=== PATIENT | female | born 1970 | race Caucasian/White ===

== ENCOUNTER 2024-07-11 18:04 | Emergency (ER) | payer OTHER, SELFPAY ==
--- NOTE | ~2024-07-11 | XR_ITS ---
EXAMINATION: XR chest 2V Exam Date/Time: 07/11/2024 18:50 CHEMISTRY INTERN HISTORY: sob Comparison: None. RESULT: Lines, tubes, and devices: None. Lungs and pleura: 11 mm and 5 mm nodules in the right upper lobe, otherwise clear. Cardiomediastinal silhouette: Stable. Other: No acute osseous or upper abdominal finding. IMPRESSION: No acute cardiopulmonary process. Right upper lobe pulmonary nodules, recommend comparison to outside studies if available, otherwise r ecommend nonemergent but timely low-dose noncontrast CT of the chest for further characterization. Reviewed, dictated and finalized at location K. ISTRY INTERN IMPRESSION: No acute cardiopulmonary process. Right upper lobe pulmonary nodules, recommend comparison to outside studies if available, otherwise recommend nonemergent but timely low-dose noncontrast CT o f the chest for further characterization.
--- NOTE | 2024-07-11 18:39 | ED_ITS ---
HPI - Recheck/Abnormal Lab/Rx General Chief Complaint: Recheck/Abnormal Lab/Rx <Mariana Blackman PA-C - Last Filed: 07/12/24 14:42> Stated Complaint: low hemoglobin <Mariana Blackman PA-C - Last Filed: 07/12/24 14:42> Time Seen by Provider: 07/11/24 18:39 <Mariana Blackman PA-C - Last Filed: 07/12/24 14:42> Focused HPI: This is a 53 year old female that presents to the ER for abnormal outpatient blood work. She is supposed to have surgery to remove fibroids on Wednesday. Reports she had some outpatient blood work on Wednesday that showed a low hemoglobin (7.4). She has been short of breath. She was prompted to be seen in the ER by her grounds restoration specialist. Dr. Newton. No current bleeding. GENERAL: Well-appearing, well-nourished, and in no acute distress. HEAD: Normocephalic, atraumatic. CHEST: Clear to auscultation. ?No respiratory distress. HEART: Regular rate and rhythm.? NEURO: ?Alert and oriented x3. Patient screened in triage and initial orders placed.? ?Additional care and disposition to be based upon?diagnostic testing and treatment. <Mariana Blackman PA-C - Last Filed: 07/12/24 14:42> Focused HPI: This is a 53 year old female that presents to the ER for abnormal outpatient blood work. She is supposed to have surgery to remove fibroids on Wednesday. Reports she had some outpatient blood work on Wednesday that showed a low hemoglobin (7.4). She has been short of breath. She was prompted to be seen in the ER by her grounds restoration specialist. Dr. Newton. No current bleeding. GENERAL: Well-appearing, well-nourished, and in no acute distress. HEAD: Normocephalic, atraumatic. CHEST: Clear to auscultation. ?No respiratory distress. HEART: Regular rate and rhythm.? NEURO: ?Alert and oriented x3. Patient screened in triage and initial orders placed.? ?Additional care and disposition to be based upon?diagnostic testing and treatment. <Neva Collins PA-C - Last Filed: 07/12/24 03:32> Source: patient <Neva Collins PA-C - Last Filed: 07/12/24 03:32> Mode of arrival: ambulatory <Neva Collins PA-C - Last Filed: 07/12/24 03:32> Limitations: no limitations <Neva Collins PA-C - Last Filed: 07/12/24 03:32> History of Present Illness HPI narrative: Agree with above HPI. Denies rectal bleeding, melena, hematuria, epistaxis. Denies CP, palpitations. Denies pain. Last normal menstrual cycle was a few weeks ago. Patient has never had a blood transfusion before. Is not currently on any iron supplementation. <Neva Collins PA-C - Last Filed: 07/12/24 03:32> Related Data Home Medications: Home Medications ?Medication ?Instructions ?Recorded ?Confirmed ?Last Taken ?Type omeprazole 20 mg capsule,delayed 20 mg PO DAILY 07/10/24 07/10/24 Unknown History release tirzepatide (weight loss) 12.5 12.5 mg subcut WEEKLY 07/10/24 07/10/24 Unknown History mg/0.5 mL subcutaneous pen injector (Zepbound) <Mariana Blackman PA-C - Last Filed: 07/12/24 14:42> Allergies/Adverse Reactions: Allergies Allergy/AdvReac Type Severity Reaction Status Date / Time No Known Allergies Allergy Verified 07/11/24 18:48 <Mariana Blackman PA-C - Last Filed: 07/12/24 14:42> Review of Systems 2 Review of Systems: All systems reviewed & are unremarkable except as noted in HPI. <Neva Collins PA-C - Last Filed: 07/12/24 03:32> All systems reviewed & are unremarkable except as noted in HPI and below < Neva Collins PA-C - Last Filed: 07/12/24 03:32> PMFSH Past Medical History Medical History: Medical History (Updated 07/12/24 @ 14:41 by Mariana Blackman PA-C) History of uterine fibroid <Mariana Blackman PA-C - Last Filed: 07/12/24 14:42> Social History Social History: Social History Smoking packs per day: 0.5 Smoking cigarettes per day: 10.0 Years smoked: 15 Smoking pack-years: 7.50 Tobacco type: e-cigarettes/vaping Smoking end date: 08/02/18 Substance use: never Substance use type: does not use Living arrangements: with family Spiritual care concerns: No <Mariana Blackman PA-C - Last Filed: 07/12/24 14:42> Exam 2 Narrative: GENERAL: Well appearing, well-nourished, non-toxic, in no acute distress. HEAD: Normocephalic, atraumatic. RESPIRATORY: Airway patent, respirations nonlabored. Clear to auscultation bilaterally, no rales, rhonchi, wheezing. No focal lung sounds. CARDIOVASCULAR: Regular rate and rhythm without murmurs, rubs, or gallops. RECTAL: Normal rectal tone. Small amount of brown stool obtained with JUANCHO. Guaiac negative. no hemorrhoids noted on exam. MUSCULOSKELETAL: Moves all extremities. No gross deformities. SKIN: Warm, dry, normal color. NEURO: A&O X3. Speech clear. Cranial nerves II-XII grossly intact. Steady gait. No ataxic movements. No focal deficits. PSYCHIATRIC: Appropriate mood and affect. Normal interaction. <Neva Collins PA-C - Last Filed: 07/12/24 03:32> Course Vital Signs Vital signs: Vital Signs Temperature 97.4 F L 07/11/24 18:44 Pulse Rate 80 07/11/24 18:44 Respiratory Rate 16 07/11/24 18:44 Blood Pressure 140/69 07/11/24 18:44 Pulse Oximetry 100 07/11/24 18:44 Oxygen Delivery Room Air 07/11/24 18:44 Temperature 97.9 F 07/12/24 02:44 Pulse Rate 82 07/12/24 02:44 Respiratory Rate 16 07/12/24 02:44 Blood Pressure 122/74 07/12/24 02:44 Pulse Oximetry 98 07/12/24 02:44 Oxygen Delivery Room Air 07/11/24 21:06 <MATT Coffman Last Filed: 07/12/24 14:42> Vital Signs Temperature 97.4 F L 07/11/24 18:44 Pulse Rate 80 07/11/24 18:44 Respiratory Rate 16 07/11/24 18:44 Blood Pressure 140/69 07/11/24 18:44 Pulse Oximetry 100 07/11/24 18:44 Oxygen Delivery Room Air 07/11/24 18:44 Temperature 97.9 F 07/12/24 02:44 Pulse Rate 82 07/12/24 02:44 Respiratory Rate 16 07/12/24 02:44 Blood Pressure 122/74 07/12/24 02:44 Pulse Oximetry 98 07/12/24 02:44 Oxygen Delivery Room Air 07/11/24 21:06 <Neva Collins PA-C - Last Filed: 07/12/24 03:32> MDM - Recheck/Abnormal Lab/Rx MDM Narrative Medical decision making narrative: Patient presented to ED with abnormal lab results, showing low hemoglobin. Scheduled to undergo fibroid removal with Dr. Newton on Wednesday. Patient reports she has been feeling increasingly short of breath with exertion over the last few days and was prompted here by her OBGYN. Patient is denying any current pain or bleeding. She denies any other forms of bleeding. Rectal exam was performed in the ED and guaiac negative. Vital signs are stable. No evidence of hemodynamic instability. CBC is with hemoglobin of 7.3. Microcytic. Appears to have component of iron deficiency. Ferritin 3. Normal white blood cell count. Normal platelets. EKG is with normal sinus rhythm, no ischemic changes. Troponin is undetectable. D-dimer is within normal range. Chest x-ray is clear from acute process. Did show incidental pulmonary nodules which I made patient aware of will need further outpatient imaging. Given that patient is acutely symptomatic, in preparation for upcoming surgery, will transfuse 1 unit. Otherwise feel she is stable for D/C home afterwards. Discussed case with Dr. Power, OBGYN prison librarian for Dr. Newton, agrees with plan. Patient tolerated blood transfusion well. She states she is ready to go home. Feel this is appropriate. Discussed iron deficiency component of anemia. Will start patient on iron supplementation. Advised patient to contact OBGYN office in the morning, given strict return precautions. She agrees with plan. Discharged in stable condition. VSS at time of d/c. <Neva Collins PA-C - Last Filed: 07/12/24 03:32> Medical Records Attestation: I reviewed the patient's medical records. <Neva Collins PA-C - Last Filed: 07/12/24 03:32> Lab Data Attestation: I reviewed the patient's lab results. <Neva Collins PA-C - Last Filed: 07/12/24 03:32> Result diagrams: 07/11/24 21:20 07/11/24 21:20 <Mariana Blackman PA-C - Last Filed: 07/12/24 14:42> Labs: Lab Results 07/11/24 Range/Units 21:20 WBC 5.6 (4.5-10.0) K/mm3 RBC 3.91 L (4.2-5.4) M/mm3 Hgb 7.3 L (12.0-15.0) g/dL Hct 26.2 L (37.0-47.0) % MCV 67.0 L (80-100) fl MCH 18.7 L (26-34) pg MCHC 27.9 L (32-36) g/dl RDW 20.1 H (11.5-14.5) % Plt Count 360 (150-375) k/mm3 MPV 8.9 (7.4-10.4) fl Immature Gran % (Auto) 0.2 (0-0.5) % Neut % (Auto) 46.3 (45.5-73.1) % Lymph % (Auto) 41.0 (18.3-44.2) % [place] % (Auto) 8.2 (2.6-8.5) % Eos % (Auto) 3.6 (0-4.4) % Baso % (Auto) 0.7 (0.2-1.2) % Lymph # (Auto) 2.30 (0.9-3.2) K/mm3 [place] # (Auto) 0.5 (0.1-0.6) K/mm3 Eos # (Auto) 0.2 (0-0.3) K/mm3 Baso # (Auto) 0.0 (0.0-0.1) K/mm3 Abs Immat Gran (auto) 0.01 (0.00-0.031) K/mm3 Absolute Neuts (auto) 2.6 (1.3-6.7) K/mm3 Absolute Nucleated RBC 0.000 (0.0-0.012) K/mm3 Nucleated RBC % 0.0 (0.0-0.2) % Platelet Estimate Adequate (Adequate) Hypochromasia 1+ Anisocytosis 1+ Microcytosis 1+ (NORMAL) Ovalocytes 1+ Schistocytes None seen Absolute Retic 0.08 (0.02-0.10) 10^6/uL Percent Retic 1.94 (0.7-4.3) % Immature Retic Fraction 20.0 H (3.0-15.9) % Retic Hgb Content 16.9 L (28.2-36.6) pg PT 13.5 (11.1-14.7) Seconds INR 1.0 APTT 26.7 (22.3-36.8) Seconds D-Dimer < 0.27 (<0.48) ug/mL Sodium 137 (137-145) mmol/L Potassium 3.5 (3.4-5.0) mmol/L Chloride 109 H (98-107) mmol/L Carbon Dioxide 23 (22-30) mmol/L Anion Gap 5 (4-12) mmol/L BUN 11 (7-17) mg/dL Creatinine 0.60 L (0.7-1.0) mg/dL Estim Creat Clear Calc 78 ml/min Estimated GFR > 60 (59 - ) Glucose 95 (65-110) mg/dL Calcium 8.7 (8.4-10.2) mg/dL Iron 21 L (37-170) ug/dL TIBC 499 H (261-462) ug/dL % Saturation 4 L (20-50) % Transferrin 344 (206-381) mg/dL Ferritin 3.65 L (11.1-264) ng/mL Total Bilirubin 0.5 (0.2-1.3) mg/dL AST 22 (14-36) U/L ALT 19 (6-35) U/L Alkaline Phosphatase 49 (38-126) U/L Troponin I < 0.012 (0.000-0.034) ng/mL Total Protein 7.0 (6.3-8.2) g/dL Albumin 3.9 (3.5-5.1) g/dL Vitamin B12 276.0 (239-931) pg/mL Folate 11.7 (2.76->20) ng/mL Blood Type O Positive Antibody Screen Negative Crossmatch See Detail <Mariana Blackman PA-C - Last Filed: 07/12/24 14:42> Lab Results 07/11/24 Range/Units 21:20 WBC 5.6 (4.5-10.0) K/mm3 RBC 3.91 L (4.2-5.4) M/mm3 Hgb 7.3 L (12.0-15.0) g/dL Hct 26.2 L (37.0-47.0) % MCV 67.0 L (80-100) fl MCH 18.7 L (26-34) pg MCHC 27.9 L (32-36) g/dl RDW 20.1 H (11.5-14.5) % Plt Count 360 (150-375) k/mm3 MPV 8.9 (7.4-10.4) fl Immature Gran % (Auto) 0.2 (0-0.5) % Neut % (Auto) 46.3 (45.5-73.1) % Lymph % (Auto) 41.0 (18.3-44.2) % [place] % (Auto) 8.2 (2.6-8.5) % Eos % (Auto) 3.6 (0-4.4) % Baso % (Auto) 0.7 (0.2-1.2) % Lymph # (Auto) 2.30 (0.9-3.2) K/mm3 [place] # (Auto) 0.5 (0.1-0.6) K/mm3 Eos # (Auto) 0.2 (0-0.3) K/mm3 Baso # (Auto) 0.0 (0.0-0.1) K/mm3 Abs Immat Gran (auto) 0.01 (0.00-0.031) K/mm3 Absolute Neuts (auto) 2.6 (1.3-6.7) K/mm3 Absolute Nucleated RBC 0.000 (0.0-0.012) K/mm3 Nucleated RBC % 0.0 (0.0-0.2) % Platelet Estimate Adequate (Adequate) Hypochromasia 1+ Anisocytosis 1+ Microcytosis 1+ (NORMAL) Ovalocytes 1+ Schistocytes None seen Absolute Retic 0.08 (0.02-0.10) 10^6/uL Percent Retic 1.94 (0.7-4.3) % Immature Retic Fraction 20.0 H (3.0-15.9) % Retic Hgb Content 16.9 L (28.2-36.6) pg PT 13.5 (11.1-14.7) Seconds INR 1.0 APTT 26.7 (22.3-36.8) Seconds D-Dimer < 0.27 (<0.48) ug/mL Sodium 137 (137-145) mmol/L Potassium 3.5 (3.4-5.0) mmol/L Chloride 109 H (98-107) mmol/L Carbon Dioxide 23 (22-30) mmol/L Anion Gap 5 (4-12) mmol/L BUN 11 (7-17) mg/dL Creatinine 0.60 L (0.7-1.0) mg/dL Estim Creat Clear Calc 78 ml/min Estimated GFR > 60 (59 - ) Glucose 95 (65-110) mg/dL Calcium 8.7 (8.4-10.2) mg/dL Iron 21 L (37-170) ug/dL TIBC 499 H (261-462) ug/dL % Saturation 4 L (20-50) % Transferrin 344 (206-381) mg/dL Ferritin 3.65 L (11.1-264) ng/mL Total Bilirubin 0.5 (0.2-1.3) mg/dL AST 22 (14-36) U/L ALT 19 (6-35) U/L Alkaline Phosphatase 49 (38-126) U/L Troponin I < 0.012 (0.000-0.034) ng/mL Total Protein 7.0 (6.3-8.2) g/dL Albumin 3.9 (3.5-5.1) g/dL Vitamin B12 276.0 (239-931) pg/mL Folate 11.7 (2.76->20) ng/mL Blood Type O Positive Antibody Screen Negative Crossmatch See Detail <RADHA Gallardo-C - Last Filed: 07/12/24 03:32> Imaging Data Attestation: I personally reviewed and interpreted this imaging study as follows: < Neva Collins PA-C - Last Filed: 07/12/24 03:32> Radiologist's impression: ITS Impressions Chest X-Ray 07/11/24 19:22 IMPRESSION: No acute cardiopulmonary process. Right upper lobe pulmonary nodules, recommend comparison to outside studies if available, otherwise recommend nonemergent but timely low-dose noncontrast CT of the chest for further characterization. <Neva Collins PA-C - Last Filed: 07/12/24 03:32> ECG Data EKG #1: Attestation: I personally reviewed and interpreted this ECG as follows: <Neva Collins PA-C - Last Filed: 07/12/24 03:32> ECG completion date: 07/11/24 <Neva Collins PA-C - Last Filed: 07/12/24 03:32> ECG completion time: 21:26 <Neva Collins PA-C - Last Filed: 07/12/24 03:32> EKG Interpretation: normal rate (72), sinus rhythm and no ST changes <Neva Collins PA-C - Last Filed: 07/12/24 03:32> Critical Care Time Critical Care Time Critical Care Time: No <Mariana Blackman PA-C - Last Filed: 07/12/24 14:42> Discharge Plan Discharge Clinical Impression: Symptomatic anemia, Incidental pulmonary nodule, Shortness of breath Uterine fibroid Qualifiers: Uterine leiomyoma location: unspecified location Qualified Code(s): D25.9 - Leiomyoma of uterus, unspecified <MATT Coffman Last Filed: 07/12/24 14:42> Patient Disposition: Home, Self-Care <MATT Coffman Last Filed: 07/12/24 14:42> Condition: Stable <Mariana Blackman PA-C - Last Filed: 07/12/24 14:42> Instructions: Antibiotic Form, Iron Rich Diet (ED), Anemia (ED), Blood Transfusion (DC) <Mariana Blackman PA-C - Last Filed: 07/12/24 14:42> Additional Instructions: Take iron supplement as prescribed. Stay well hydrated. Contact Dr. Newton's office today to inform of ED visit and blood transfusion. Return to the ED if you experience worsening or severe symptoms, severe shortness breath or chest pain, pain or swelling in legs, coughing blood, unable to keep down food or drink, severe bleeding, dizziness/lightheadedness, passing out, or any other symptoms of concern. Your chest x-ray here showed an incidental pulmonary nodule in your right upper lung. Follow-up with your primary care doctor for further evaluation and imaging of this. <Mariana Blackman PA-C - Last Filed: 07/12/24 14:42> Patient Language: Martiniquais <Mariana Blackman PA-C - Last Filed: 07/12/24 14:42> Prescriptions: New ferrous sulfate [Iron (ferrous sulfate)] 325 mg (65 mg iron) tablet 325 mg PO DAILY Qty: 30 0RF No Action omeprazole 20 mg capsule,delayed release(DR/EC) 20 mg PO DAILY Zepbound 12.5 mg/0.5 mL pen injector 12.5 mg SUBCUT WEEKLY <Mariana Blackman PA-C - Last Filed: 07/12/24 14:42> Follow-up/Referrals: Imani Newton MD [Physician] - <Mariana Blackman PA-C - Last Filed: 07/12/24 14:42> Stand Alone Forms: Work/School Release IP <Mariana Blackman PA-C - Last Filed: 07/12/24 14:42> Time of Disposition: 02:31 <MATT Coffman Last Filed: 07/12/24 14:42> 02:31 <Neva Collins PA-C - Last Filed: 07/12/24 03:32>
[2024-07-11 18:44] VITALS: BP 140/69; PULSE 80; RESP 16; TEMP 36.3; O2SAT 100
--- NOTE | 2024-07-11 21:05 | ECG_ITS ---
Test Date: 2024-07-11 21:26:57 Measurements Intervals [place] Rate: 72 P: 43 FL: 184 QRS: 42 QRSD: 86 T: 37 QT: 376 QTc: 413 Interpretive Statements SINUS RHYTHM No previous ECG available for comparison Electronically Signed On 07-12-2024 11:50:27 OPTICAL ENGINEER by Elver Reina
[2024-07-11 21:06] VITALS: BP 130/72; PULSE 75; RESP 15; TEMP 36.4; O2SAT 100
[2024-07-11 21:26] LABS: Basophils Percent Auto 0.7 % (0.2-1.2); Eosinophils Absolute Auto 0.2 K/mm3 (0-0.3); Eosinophils Percent Auto 3.6 % (0-4.4); Hematocrit 26.2 % (37.0-47.0); Hemoglobin 7.3 g/dL (12.0-15.0); Immature Granulocyte Absolute 0.01 K/mm3 (0.00-0.031); Immature Granulocyte Percent A 0.2 % (0-0.5); Mean Corpuscular HGB Conc 27.9 g/dl (32-36); Mean Corpuscular Hemoglobin 18.7 pg (26-34); Mean Platelet Volume 8.9 fl (7.4-10.4); Monocytes Absolute Auto 0.5 K/mm3 (0.1-0.6); Monocytes Percent Auto 8.2 % (2.6-8.5); Neutrophils Absolute Auto 2.6 K/mm3 (1.3-6.7); Neutrophils Percent Auto 46.3 % (45.5-73.1); Platelet Count Result 360 k/mm3 (150-375); Red Blood Count 3.91 M/mm3 (4.2-5.4); Red Cell Distribution Width 20.1 % (11.5-14.5); White Blood Count 5.6 K/mm3 (4.5-10.0)
[2024-07-11 21:29] VITALS: RESP 16; O2SAT 100
[2024-07-11 21:37] LABS: Partial Thromboplastin Time 26.7 Seconds (22.3-36.8); Prothrombin Time 13.5 Seconds (11.1-14.7)
[2024-07-11 21:42] LABS: Platelet Estimate Adequate (Adequate)
[2024-07-11 21:43] LABS: Anisocytosis 1+; Hypochromasia 1+; Microcytosis 1+ (NORMAL); Ovalocytes 1+; Schistocytes None Seen
[2024-07-11 21:52] LABS: Alanine Aminotransferase 19 U/L (6-35); Albumin Level 3.9 g/dL (3.5-5.1); Alkaline Phosphatase 49 U/L (38-126); Anion Gap 5 mmol/L (4-12); Aspartate Amino Transferase 22 U/L (14-36); Bilirubin,Total 0.5 mg/dL (0.2-1.3); Blood Urea Nitrogen 11 mg/dL (7-17); Calcium 8.7 mg/dL (8.4-10.2); Carbon Dioxide 23 mmol/L (22-30); Chloride 109 mmol/L (98-107); Estimated CRCL calculation 78 ml/min; Estimated Glomerular Filt Rate > 60; Glucose 95 mg/dL (65-110); Potassium 3.5 mmol/L (3.4-5.0); Sodium 137 mmol/L (137-145)
[2024-07-11 21:53] LABS: D Dimer < 0.27 ug/mL (<0.48)
[2024-07-11 21:54] VITALS: BP 136/75; PULSE 75; RESP 16; O2SAT 100
[2024-07-11 22:13] LABS: Troponin I < 0.012 ng/mL (0.000-0.034)
[2024-07-11 22:20] LABS: Reticulocyte Hemoglobin Conten 16.9 pg (28.2-36.6); Reticulocyte Percent 1.94 % (0.7-4.3); Reticulocytes Absolute 0.08 10^6/uL (0.02-0.10)
[2024-07-11 22:27] LABS: Iron 21 ug/dL (37-170)
[2024-07-11 22:36] LABS: Percent Iron Saturation 4 % (20-50)
[2024-07-11 23:03] LABS: Ferritin 3.65 ng/mL (11.1-264)
[2024-07-11 23:39] LABS: Transferrin 344 mg/dL (206-381)
[2024-07-11 23:45] VITALS: BP 106/74; PULSE 79; RESP 16; O2SAT 98
[2024-07-12] VITALS (15 sets, daily range): BP systolic 114–130; BP diastolic 61–76; PULSE 67–84; RESP 12–19; TEMP 36.4–36.6; O2SAT 98–100
[2024-07-12 00:37] LABS: Folic Acid 11.7 ng/mL (2.76->20)
[2024-07-12] MEDS: SODIUM CHLORIDE 0.9% IV 250 ML 30 ML IV CONT (00:45)
[2024-07-12] MEDS: TUBING, BLOOD PLUM PUMP TUBING 1 EACH XX (00:45)
== END 2024-07-12 02:45 | disposition home or self-care (01) ==
PROVIDERS: Physician Assistant; Emergency Provider Physician Assistant
DX: D25.9 Leiomyoma of uterus, unspecified (principal); D64.9 Anemia, unspecified; R91.1 Solitary pulmonary nodule; R06.02 Shortness of breath
CPT/HCPCS: 36415; 36430; 71046; 80053; 82607; 82728; 82746; 83540; 83550; 84466; 84484; 85025; 85046; 85380; 85610; 85730; 86850; 86900; 86901; 86923; 93005; 96360; 96361; 99284; J7050; P9016

== ENCOUNTER 2024-07-13 17:20 | Outpatient (CLI) | payer OTHER, SELFPAY ==
[2024-07-13 17:39] LABS: Basophils Absolute Auto 0.1 K/mm3 (0.0-0.1); Basophils Percent Auto 0.8 % (0.2-1.2); Eosinophils Absolute Auto 0.2 K/mm3 (0-0.3); Hematocrit 29.7 % (37.0-47.0); Hemoglobin 8.5 g/dL (12.0-15.0); Immature Granulocyte Absolute 0.01 K/mm3 (0.00-0.031); Immature Granulocyte Percent A 0.2 % (0-0.5); Lymphocytes Absolute Auto 2.46 K/mm3 (0.9-3.2); Lymphocytes Percent Auto 40.7 % (18.3-44.2); Mean Corpuscular HGB Conc 28.6 g/dl (32-36); Mean Corpuscular Hemoglobin 20.1 pg (26-34); Mean Corpuscular Volume 70.2 fl (80-100); Mean Platelet Volume 8.3 fl (7.4-10.4); Monocytes Absolute Auto 0.6 K/mm3 (0.1-0.6); Monocytes Percent Auto 9.1 % (2.6-8.5); Neutrophils Absolute Auto 2.8 K/mm3 (1.3-6.7); Neutrophils Percent Auto 46.2 % (45.5-73.1); Platelet Count Result 330 k/mm3 (150-375); Red Blood Count 4.23 M/mm3 (4.2-5.4); Red Cell Distribution Width 21.2 % (11.5-14.5)
[2024-07-13 17:59] LABS: Anisocytosis 1+; Hypochromasia 1+; Ovalocytes 1+; Platelet Estimate Adequate (Adequate); Poikilocytosis 1+; Schistocytes None Seen
[2024-07-13 18:28] LABS: Ferritin 6.31 ng/mL (11.1-264)
== END 2024-07-13 17:21 | disposition home or self-care (01) ==
LOC: ANHLAB 17:23
PROVIDERS: Visit Provider Obstetrics & Gynecology Gynecology
DX: D50.9 Iron deficiency anemia, unspecified (principal)
CPT/HCPCS: 36415; 82728; 85025

== ENCOUNTER 2024-07-17 00:37 | Day surgery (SDC) | payer OTHER, SELFPAY ==
[2024-07-10 08:48] VITALS: BMI 22.6
--- NOTE | 2024-07-10 09:01 | PC.NURSE ---
Report to the Outpatient Waiting Room, entrance under the green pavilion located off [facility], at time _0630 on date _07/17/24 . Planned Procedure Time: _0830AM .? Time changes happen often and if your time is changed the preop area will call you the afternoon before. - You and your visitor will be asked to self-screen and do not enter if you have any COVID symptoms. Please call surgeon if you need to reschedule. - A mask is optional within the hospital at this time. Patients may have clear liquids (water, carbonated beverages, clear teas, apple juice) until 3 hours prior to surgery with a maximum of 20 ounces. - No food from midnight until time of surgery and no smoking. This includes no chewing gum, candy or mints. Take only the following medications with a SIP of water on the morning of surgery: __NONE DO NOT STOP ANY OF YOUR OTHER PRESCRIPTION MEDICATIONS PRIOR TO SURGERY EXCEPT THE FOLLOWING Medications to discontinue per physician ZEPBOUND Date to take last dose___ HOLD YOUR WED 07/12/24__DOSE Please no make-up, nail mosotho, hairspray, perfume, deodorant, or body powder the day of surgery.? No jewelry (including any body piercings) or valuables the day of surgery, leave them at home.? Please take a shower or bath the night before, or the morning of, surgery with an antibacterial soap.? Wear comfortable, loose fitting clothing.? - Jewelry must be removed prior to entering the operating room.? Rings and piercings that are not removed may be cut off. - The hospital will not accept responsibility for valuables.? - Please leave all valuables, including medications, at home the day of surgery. If you are going home after surgery, a licensed septic pump truck driver must drive you home.? - NO public transportation without another adult if you receive anesthesia. - We recommend that an adult stay with you for 24 hours following discharge. - We also recommend that you do not drive, make important decision, drink alcoholic beverages, or take any drugs that were not prescribed by your health care provider for at least 24 hours after your discharge time. Follow any additional instructions given to you from your surgeon. Telephone instructions given to __JO ___and asked if any additional questions and then verbalized understanding. Patient advised to call surgeon office or pre surgery nurse liaison [phone] if any additional questions.
[2024-07-17 06:00] VITALS: BP 109/56; PULSE 73; RESP 14; TEMP 36.6; O2SAT 100
[2024-07-17] MEDS: LACTATED RINGERS 1,000 ML 30 ML IV CONT (06:30)
[2024-07-17] MEDS: ACETAMINOPHEN 500 MG TABLET 1000 MG PO (07:21)
--- NOTE | 2024-07-17 07:23 | WPDHPUPDATE1 ---
History and Physical Update Update Date/Time: 07/17/24 07:23 History and Physical has been reviewed, including an updated exam of the patient. There are NO changes in the patient's condition. Risks, benefits, and alternatives have been discussed and questions answered. Patient agrees to proceed with procedure.
--- NOTE | 2024-07-17 07:23 | PM.HPGS ---
History of Present Illness History of Present Illness Consent: Risks, benefits, and alternatives have been discussed and questions answered. Patient agrees to proceed with procedure. Chief complaint: menorrhagia, fibroids Narrative: Khalif Stacy is a 53 year old female with menorrhagia. Patient had a hemoglobin of 7.3 and was transfused at the emergency room on 07/11. Patient had 18 months of changing cycles and is now changing a tampon and a pad every 1 to 2 hours during her cycle. In addition she states she was having extreme abdominal pain, nausea, lightheaded. Patient with episodes of passing out. She did have a pelvic CT which revealed fibroids. It was recommended to undergo D&C hysteroscopy possible myomectomy further evaluation. Risks of infection, bleeding, perforation, and fluid imbalance are reviewed. Patient voices understanding and agrees to proceed. The other significant history is the patient has been on zepbound and has lost 100lb over the prior 3 years. Review of Systems Review of Systems: not repeated day of surgery; patient states no changes in status PMFSH Past Medical History Medical History (Updated 07/17/24 @ 07:28 by Imani Newton MD) PCOS (polycystic ovarian syndrome) (normal spontaneous vaginal delivery) x2 History of uterine fibroid Surgical History Surgical History (Updated 07/17/24 @ 07:27 by Imani Newton MD) Status post tubal ligation Social History Social History Smoking packs per day: 0.5 Smoking cigarettes per day: 10.0 Years smoked: 15 Smoking pack-years: 7.50 Tobacco type: e-cigarettes/vaping Smoking end date: 08/02/18 Substance use: never Substance use type: does not use Living arrangements: with family Spiritual care concerns: No Meds Home Medications and Allergies Home Medications ?Medication ?Instructions ?Recorded ?Confirmed ?Type omeprazole 20 mg capsule,delayed 20 mg PO DAILY 07/10/24 07/17/24 History release tirzepatide (weight loss) 12.5 12.5 mg subcut WEEKLY 07/10/24 07/17/24 History mg/0.5 mL subcutaneous pen injector (Zepbound) ferrous sulfate 325 mg (65 mg 325 mg PO DAILY #30 tabs 07/12/24 07/17/24 Rx iron) tablet (Iron (ferrous sulfate)) Allergies Allergy/AdvReac Type Severity Reaction Status Date / Time No Known Allergies Allergy Verified 07/17/24 07:22 Exam Const: General: healthy appearing and alert Orientation/consciousness: patient oriented x3 Resp: Effort & Inspection: normal respiratory effort Auscultation: clear to auscultation bilaterally Cardio: Rate: regular rate Rhythm: regular rhythm GI: GI Palp: Yes Soft to palpation, No Tenderness to palpation present (GI) and No Palpable mass present Neuro: General: patient oriented x3 Assessment and Plan Assessment and plan (1) Menorrhagia: Code(s): N92.0 - Excessive and frequent menstruation with regular cycle Status: Acute Assessment and Plan: plan to proceed with D&C hysteroscopy and possible myomectomy (2) History of uterine fibroid: Code(s): Z86.018 - Personal history of other benign neoplasm Status: Acute (3) Anemia: Code(s): D64.9 - Anemia, unspecified Status: Acute
[2024-07-17 07:28] LABS: BEDSIDEPREGUCG Negative (Negative)
--- NOTE | 2024-07-17 07:40 | P.PNAN_ITS ---
Anes - Initial Pre Proc Eval Procedure: Operation Date: 07/17/24 08:30 Proposed Procedures p Hysteroscopy Dilation and Curettage - Imani Newton MD Date/Time: 07/17/24 07:40 Surgeon: Imani Newton MD Pre Op Diagnosis: menorrhagia, fibroids Patient Data Age: 53 Gender: F Height: 1.57 m Weight: 58.3 kg Last Vital Signs Temp 36.6 C 07/17/24 06:00 Pulse 73 07/17/24 06:00 Resp 14 07/17/24 06:00 BP 109/56 L 07/17/24 06:00 Pulse Ox 100 07/17/24 06:00 O2 Del Method Room Air 07/17/24 06:00 Allergies Allergy/AdvReac Type Severity Reaction Status Date / Time No Known Allergies Allergy Verified 07/17/24 07:22 Home Medications ?Medication ?Instructions ?Recorded ?Confirmed ?Type omeprazole 20 mg capsule,delayed 20 mg PO DAILY 07/10/24 07/17/24 History release tirzepatide (weight loss) 12.5 12.5 mg subcut WEEKLY 07/10/24 07/17/24 History mg/0.5 mL subcutaneous pen injector (Zepbound) ferrous sulfate 325 mg (65 mg 325 mg PO DAILY #30 tabs 07/12/24 07/17/24 Rx iron) tablet (Iron (ferrous sulfate)) Laboratory Tests 07/17/24 06:00 POC Urine HCG, Qual Negative (Negative) Patient hx anesthesia problems: none Family hx anesthesia problems: none Results Review: All pre-operative results and documents have been reviewed as part of the pre- operative evaluation. [facility] Past Medical History Medical History (Updated 07/17/24 @ 07:28 by Imani Newton MD) PCOS (polycystic ovarian syndrome) (normal spontaneous vaginal delivery) x2 History of uterine fibroid Surgical History Surgical History (Updated 07/17/24 @ 07:27 by Imani Newton MD) Status post tubal ligation Social History Social History Smoking packs per day: 0.5 Smoking cigarettes per day: 10.0 Years smoked: 15 Smoking pack-years: 7.50 Tobacco type: e-cigarettes/vaping Smoking end date: 08/02/18 Substance use: never Substance use type: does not use Living arrangements: with family Spiritual care concerns: No Anes - Eval Final PreProcedure Day of Procedure 07/17/24 07:40 Patient weight: normal Heart: regular rate and rhythm Lungs: clear to auscultation and normal air movement Airway: Mallampati scale class II Neurological: alert and oriented Last oral intake: >/= 8 hours ASA classification: II Emergent: no Anesthetic plan: proceed Anesthesia type and monitoring: general GIVS and standard monitoring Results Review: All pre-operative results and documents have been reviewed as part of the pre- operative evaluation. Informed Consent: The patient's anesthetic plan and its attendant risks and benefits were discussed with the patient/family/POA. Questions were solicited and answers provided to the satisfaction of the patient/family/POA.
--- NOTE | 2024-07-17 09:11 | P.OP_ITS ---
Procedure Note - Detailed Date of Procedure 07/17/24 Pre-op Diagnosis menorrhagia, fibroids, anemia Post-op Diagnosis Same Procedure Performed D&C hysteroscopy Surgeon Imani Newton MD Anesthesia MAC Findings severe cervical stenosis, uterus sounds to 8cm, abnormality anterior left consistent with a possible fibroid Description of Procedure The patient was taken to the operating room and placed under anesthesia in the dorsal lithotomy position. She was prepped and draped in the usual sterile fashion. [place] speculum was placed in the vagina and the cervix grasped on the anterior lip with a tenaculum. The uterus was attempted to be sounded and at the 2cm kevin severe stenosis is encountered. The os Finders and the small dilators are used without success. The sound was again attempted without success. The os Finders and small dilators and sound are tied again without success. The 11 blade scalpel is used to lino cross the cervix with no mucus returned. The os Finders, dilators and sound are again attempted and on this attempt the sound did proceed further. With significant force the sound did sound to 8cm. The os Finder was then used and only the 1st 1 would pass. The small dilator would not pass. The small hysteroscope is placed and using hydro dissection with difficulty the cavity is entered. The majority of the cavity appears normal. There is a irregular bulging to the anterior left consistent with a possible fibroid. The flex Aveta resection device is placed and under direct visualization the abnormality is resected until visualization is poor due to bleeding. While adding additional fluid to the cavity the area appears smooth however due to bleeding a picture was not able to be taken. The resection device was also used to generally biopsy the cavity. The resection device was also used to remove scar tissue at the upper endocervix. the hysteroscope and resection device are then removed. The sharp curette is unable to enter the cavity. All instruments are removed. Sponge, needle, and instrume nt counts are correct per the OR staff. The patient was awakened from anesthesia and taken to recovery in stable condition. Of note, I would not consider this patient a candidate for an IUD or endo metrial ablation due to the severe difficulty of performing this case. Estimated Blood Loss 50 Drains No Packing No Pathology Yes ( Endometrial shavings) Complications No immediate complications Condition Stable Disposition PACU
[2024-07-17 09:13] VITALS: BP 110/64; PULSE 71; RESP 14; O2SAT 100
[2024-07-17 09:40] VITALS: BP 123/74; PULSE 62; O2SAT 100
[2024-07-17 09:58] VITALS: BP 132/78; PULSE 64; RESP 16
--- OUTSIDE RECORDS SUMMARY | 2024-07-22 09:38 | XMS_ITS | Clinical Summary ---
Author Organization [facility] Address [address] [place] [address] Phone Care Team Providers Care Telecommunications Network Engineer Name Role Phone Provider, None Primary Care Provider Unavailabl e Allergies No known active allergies Medications topiramate (TOPAMAX) 25 MG Tablet Take 2 tablets in am and 2 tablets at bedtime 120 Tab 1 8 Active Additional Information Patient not taking.Reported on 09/13/2020 Active Problems No known active problems Immunizations Immunization Administration Dates Next Due Influenza Vaccine 05/13/2018 Pneumococcal Vaccine Adult - 23 Valent 8 Family History Medical History Relation Name Comments Cancer Father Stroke Mother Relation Name Status Comments Father Maternal Grandfather Maternal Grandmother Alive Mother Paternal Grandfather Paternal Grandmother Social History Tobacco Use Types Packs/Day Years Used Date Smoking Tobacco: Every Day Cigarettes Smokeless Tobacco: Never Tobacco Cessation:Ready to Q uit: Yes; Counseling Given: Yes Alcohol Use Standard Drinks/Week Comments Yes 0 (1 standard drink = 0.6 oz pur e alcohol) PHQ-2 Answer Date Recorded PHQ-2 Score 0 04/15/2019 Sexually Active Control Partners Comments Yes Comments No Sex and Gender Information Value Date Recorded Sex Assigned at Not on file Legal Sex Female 10:28 AM CDT Gender Identity Not on file Sexual Orientation Not on file Last Filed Vital Signs Vital Sign Reading Time Taken Comments Blood Pressure 124/74 09/13/2020 5:21 PM CUSTOMER SERVICER Pulse 88 09/13/2020 5:21 PM CUSTOMER SERVICER Temperature 36.4 ??C (97.5 ??F) 09/13/2020 5:21 PM CS T Respiratory Rate 24 05/30/2018 9:37 AM CDT Oxygen Saturation 98% 09/13/2020 5:21 PM CUSTOMER SERVICER Inhaled Oxygen Concentration - - Weight 83.6 kg (184 lb 3.2 oz) 05/30/2018 9:37 A M CDT Height 160 cm (5' 3 ) 05/30/2018 9:37 AM CDT Body Mass Index 32.63 05/30/2018 9:37 AM CDT Plan of Treatment Health Maintenance Due Date Last Done Comments Hepatitis C Virus (HCV) Screening 1972 TdaP Immunization 1972 Hepatitis B Immunization (1 of 3 - 19+ 3-dose series) 1991 Pap Smear 1993 Cervical Cancer Screening (CCS) 2002 HPV/Cotest 2002 Colonoscopy 2017 Colorectal Cancer Screening 2017 Cologuard 2022 Immunochemical Fecal Occult Blood 2022 Mammogram 2022 Zoster Immunization (1 of 2) 2022 Influenza Immunization (#1) 2024 05/13/2018 SARS-COV-2 Immunization ( - season) 2024 Respiratory Syncytial Virus (RSV) Immunization (Adult) (1 - 1-dose 75+ series) 2047 Pneumococcal Immunization Combined Aged Out 2017 No longer eligible based on patient's age to complete this topic Meningococcal Immunization (ACWY) Aged Out No longer eligible based on patient's age to complete this topic Rotavirus Immunization Aged Out No lo nger eligible based on patient's age to complete this topic Insurance Care Teams Telecommunications Network Engineer Relationship Specialty Start Date End Date Provider, None MELANIE PCP - General 06/27/21
--- OUTSIDE RECORDS SUMMARY | 2024-07-22 09:38 | XMS_ITS | Encounter Summary ---
Author Organization [facility] Address [address] [place] [address]. [place] [address] [place] [address] Care Team Providers Care Officer Lieutenant Name Role Phone Michael Arias MD Primary Care Provider [phone] Reason for Referral * Imaging (Emergency) - New Request Specialty Diagnoses / Procedures Referred By Nate quiles Referred To Contact RADIOLOGY Procedures CT ABD+PEL W IV CON ONLY Rahul Lynn MD [address] [place] [address] Phone: tel: fax: Referral ID Status Reason Start Date Expiration Date V isits Requested Visits Authorized [id number] New Request 03/11/2024 03/11/2025 1 1 Reason for Visit * Reason Comments Abdominal Pain Encounter Details Date Type Department Care Team (Late st Contact Info) Description 03/11/2024 11:11 PM CDT - 03/12/2024 3:00 AM CDT Emergency [facility] Emergency Room [address] [place] [address] Rahul Lynn MD [address] [place] [address] Abdominal Pain Discharge Disposition: Home or Self Care (Routine Discharge) Social History Tobacco Use Types Packs/Day Years Used Date Smoking Tobacco: Never Passive Smoke Exposure: Never Smokeless Tobacco: Never Tobacco Cessation:Counseling Given: Not Answered Alcohol Use Standard Drinks/Week Comments Not Currently 0 (1 standard drink = 0.6 oz pur e alcohol) Comments No Sex and Gender Information Value Date Recorded Sex Assigned at Not on file Legal Sex Female 11:10 PM CDT Gender Identity Not on file Sexual Orientation Not on file documented as of this encounter Last Filed Vital Signs Vital Sign Reading Time Taken Comments Blood Pressure 145/85 03/12/2024 3:00 AM CDT Pulse 84 03/12/2024 3:00 AM CDT Temperature 36.6 ??C (97.8 ??F) 03/12/2024 3:00 AM CD T Respiratory Rate 18 03/12/2024 3:00 AM CDT Oxygen Saturation 98% 03/12/2024 3:00 AM CDT Inhaled Oxygen Concentration - - Weight 54.6 kg (120 lb 5.9 oz) 03/11/2024 11:14 PM CDT Height 157.5 cm (5' 2 ) 03/11/2024 11:14 PM CDT Body Mass Index 22.02 03/11/2024 11:14 PM CDT documented in this encounter Discharge Instructions * Discharge Instructions* Rahul Lynn MD - 03/12/2024 2:41 AM CDT Take Zofran as needed for any additional nausea. Take the Carafate as instructed until you follow-up with your primary care doctor and your primary care doctor determines additional management options which may include referral to GI for endoscopy or other testing. Contact your CREATIVE PROJECT MANAGER to discuss the severity of your menstrual bleeding which may also be related to your large fibroid. Return to theER if you have worsening symptoms including shortness of breath, dizziness upon standing, increasing pain not improved by medication, or other concerning symptoms. * Attachments The following attachments cannot be sent through Care Everywhere. * Gastritis Discharge Instructions (Kyrgyz) * Uterine Fibroids Discharge Instructions (Kyrgyz) * Gastric Ulcer Discharge Instructions (Kyrgyz) documented in this encounter Medications at Time of Discharge ondansetron (ZOFRAN-ODT) 4 MG disintegrating tablet Take 1 tablet (4 mg total) by mouth every 8 (eight) hours as needed for Nausea. 20 tablet 03/12/2024 sucralfate (CARAFATE) 1 G tablet Take 1 tablet (1 g total) by mouth 4 (four) times daily before meals and nightly. 120 tablet 03/12/2024 documented as of this encounter ED Notes * Rahul Lynn MD - 03/12/2024 1:46 AM CDT Chief Complaint Chief Complaint Patient presents with Abdominal Pain History of Present Illness 53-year-old female with a history of chronic anemia and heavy menstrual flow that is yet to be evaluated here with complaints of acute onset epigastric abdominal pain that is unchanged by anything. No previous history of similar symptoms. She does endorse some nausea. No change in bowel or bladder habits. No chest pain or shortness of breath. No known sick contacts. Medical History ALLERGIES: Review of patient's allergies indicates: No Known Allergies MEDICATIONS: Prior to Admission medications Medication Sig Start Date End Date Taking? Authorizing Provider ondansetron (ZOFRAN-ODT) 4 MG disintegrating tablet Take 1 tablet (4 mg total) by mouth every 8 (eight) hours as needed for Nausea. 03/12/24 Yes Rahul Lynn MD sucralfate (CARAFATE) 1 G tablet Take 1 tablet (1 g total) by mouth 4 (four) times daily before meals and nightly. 03/12/24 Yes Rahul Lynn MD PAST MEDICAL HISTORY: Past Medical History: Diagnosis Date Known health problems: none PAST SURGICAL HISTORY: History reviewed. No pertinent surgical history. FAMILY HISTORY: No family history on file. SOCIAL HISTORY: Social History Tobacco Use Smoking status: Never Passive exposure: Never Smokeless tobacco: Never Substance Use Topics Alcohol use: Not Currently Drug use: Never Review of Systems Review of Systems Physical Exam Filed Vitals: 03/11/24 2314 03/11/24 2315 03/12/24 0000 03/12/24 0100 BP: (!) 166/108 (!) 168/108 (!) 160/91 (!) 140/91 Pulse: 100 Resp: 20 Temp: 97.7 ??F (36.5 ??C) TempSrc: Temporal SpO2: 100% 100% 99% 96% Weight: 54.6 kg (120 lb 5.9 oz) Height: 1.575 m (5' 2 ) Physical Exam Vitals and nursing note reviewed. Constitutional: General: She is in acute distress. Appearance: She is well-developed. Comments: Obvious distress due to discomfort HENT: Head: Normocephalic and atraumatic. Right Ear: External ear normal. Left Ear: External ear normal. Nose: Nose normal. Eyes: General: No scleral icterus. Pupils: Pupils are equal, round, and reactive to light. Cardiovascular: Rate and Rhythm: Normal rate and regular rhythm. Pulses: Normal pulses. Heart sounds: Normal heart sounds. Pulmonary: Effort: Pulmonary effort is normal. No respiratory distress. Breath sounds: Normal breath sounds. No stridor. No wheezing. Abdominal: General: Bowel sounds are normal. There is no distension. Palpations: Abdomen is soft. Tenderness: There is abdominal tenderness. Comments: There is tenderness to palpation in the epigastrium. It is worst just to the left of midline however some tenderness exists in the bilateral upper quadrants. No Mcgraw sign. Positive bowel sounds. Musculoskeletal: General: No deformity. Normal range of motion. Cervical back: Normal range of motion and neck supple. Skin: General: Skin is warm and dry. Capillary Refill: Capillary refill takes less than 2 seconds. Findings: No rash. Neurological: Mental Status: She is alert and oriented to person, place, and time. Cranial Nerves: No cranial nerve deficit. Psychiatric: Mood and Affect: Mood normal. Behavior: Behavior normal. Diagnostic Studies / Procedures ELECTROCARDIOGRAMS: No results found for this visit on 03/11/24. LABORATORY STUDIES: Results for orders placed or performed during the hospital encounter of 03/11/24 CBC W/DIFF AUTOMATED Result Value Ref Range WBC 7.75 4.4 - 11.0 x10'3/uL RBC 3.85 (L) 4.50 - 5.10 x10'6/uL HGB 7.3 (L) 12.3 - 15.3 G/DL HCT 26.0 (L) 35.9 - 44.6 % MCV 67.5 (L) 80.0 - 96.0 FL MCH 19.0 (L) 25.3 - 30.9 PG MCHC 28.1 (L) 31.0 - 34.1 G/DL RDW 18.2 (H) 12.4 - 15.1 % PLT 316 151 - 353 x10'3/uL MPV 9.1 (L) 9.6 - 12.0 FL RBC MORPHOLOGY NORMAL PLT MORPH. NORMAL WBC MORPHOLOGY NORMAL LYMPHOCYTES % 34.3 15.8 - 45.0 % NEUTROPHILS % 54.5 42.1 - 71.9 % MONOCYTES % 8.6 5.7 - 12.5 % EOSINOPHILS 1.9 0.0 - 5.6 % BASOPHILS 0.4 0.0 - 1.3 % ABS. NEUTROPHILS 4.22 1.40 - 6.00 x10'3/uL IMMATURE GRANS % 0.3 0.0 - 0.5 % ABS. LYMPHOCYTES 2.66 0.80 - 4.70 x10'3/uL COMPREHENSIVE METABOLIC PANEL Result Value Ref Range GLUCOSE 97 70 - 99 MG/DL BUN 18 7 - 18 MG/DL CREATININE S/P/B 0.62 0.55 - 1.02 MG/DL SODIUM S/P/B 143 136 - 145 MMOL/L POTASSIUM S/P/B 4.0 3.5 - 5.1 MMOL/L CHLORIDE S/P/B 108 100 - 108 MMOL/L CO2 22.8 21 - 32 MMOL/L CALCIUM S/P/B 8.3 (L) 8.5 - 10.1 MG/DL BILIRUBIN TOTAL S/P/B 0.2 0.2 - 1.2 MG/DL TOTAL PROTEIN S/P/B 5.9 (L) 6.4 - 8.2 G/DL ALBUMIN S/P/B 3.3 (L) 3.4 - 5.0 G/DL AST 12 (L) 15 - 37 U/L ALT 16 14 - 55 U/L ALKALINE PHOSPHATASE S/P/B 55 50 - 136 U/L ANION GAP 12.2 5 - 15 MMOL/L BUN CREATININE RATIO 29.0 (H) 6 - 26 A/G RATIO 1.3 1.0 - 2.0 RATIO GFR ESTIMATE >90 >90 ML/MIN/1.73 M2 TROPONIN, QUANT Result Value Ref Range TROPONIN I HIGH SENSITIVITY 4 0 - 50 ng/L LIPASE Result Value Ref Range LIPASE 72 16 - 77 UNITS/L TYPE AND SCREEN Result Value Ref Range ABO/RH O POSITIVE ANTIBODY SCREEN NEGATIVE SAMPLE EXPIRATION 03/14/2024,4262 BLOOD UNIT NUMBER [id number] PRODUCT: PC LEUKOPOOR UNIT DIVISION 00 BLOOD UNIT STATUS ALLOCATED TRANSFUSION STATUS OK TO TRANSFUSE CROSSMATCH COMPATIBLE OCCULT BLOOD, FECES Result Value Ref Range OCCULT BLOOD FECAL NEGATIVE NEGATIVE IMAGING STUDIES CT ABD+PEL W IV CON ONLY Final Result by User, [id number] (03/12 12) INDICATION: Epigastric pain and right upper quadrant abdominal pain. Vomiting. COMPARISON: None. TECHNIQUE: Axial images were obtained through the abdomen and pelvis with intravenous contrast. Additional images were reconstructed in the coronal plane. DOSE OPTIMIZATION: This facility uses dose optimization techniques as appropriate to perform exams, including at least one of the following techniques: 1. Automated exposure control. 2. Adjustment of the mA and/or kV according to patient size (this includes techniques or standardized protocols for targeted exams where dose is matched to the indication/reason for exam, i.e. extremities or head). 3. Use of iterative reconstructive technique. FINDINGS: Lung bases: Clear. Liver: Normal. Gallbladder: The gallbladder is mildly distended. However, no gallstones or pericholecystic inflammatory change are identified. Pancreas: Normal. Spleen: Normal. Adrenal glands: Normal. Kidneys: Normal. Abdominal wall: Normal. Stomach: Normal. Large and small bowel: The large and small bowel appears unremarkable given the absence of oral contrast. Appendix: Normal. Mesentery: Normal. Free fluid: There is a tiny amount of free fluid in the posterior pelvis, which is likely physiologic. Lymph nodes: No enlarged nodes. Vasculature: There are atherosclerotic calcifications of the aorta and iliac arteries. There is no aneurysm. Urinary bladder: Normal. Uterus: The uterus appears enlarged and heterogeneous. There is also what appears to be a large rounded mass lesion in the region of the endometrium or uterine cavity superiorly. This measures approximately 5.1 cm in diameter and may represent a large submucosal fibroid. Adnexa: The ovaries are not well visualized. There is suggestion of a small involuting left ovarian follicular cyst measuring 20 x 16 mm. There are bilateral pelvic clips, suggesting previous tubal ligation. Visualized osseous structures: There is no bony destructive process. IMPRESSION: 1. Heterogeneous enlargement of the uterus with what appears to be a large submucosal uterine fibroid. 2. Mild distention of the gallbladder, but no gallstones or pericholecystic inflammatory change are identified. 3. Atherosclerotic changes of the aorta and iliac arteries. 4. Probable involuting left ovarian follicular cyst. Referred By: Interpreted By: Jose Martin Youssef MD, 03/12/2024 12:02 AM ED Course / Medical Decision Making Medical Decision Making 53-year-old female with a history of chronic anemia and heavy menstrual flow that is yet to be evaluated here with complaints of acute onset epigastric abdominal pain that is unchanged by anything. No previous history of similar symptoms. She does endorse some nausea. No change in bowel or bladder habits. No chest pain or shortness of breath. No known sick contacts. Vitals are stable. Exam is notable for conjunctivae that do not appear particularly pale. Tenderness to the epigastrium and the bilateral upper quadrants left being greater than right. No Mcgraw sign. Patient provided a dose of morphine shortly after arrival and had improvement in her symptoms. Zofran resulted in significant reduction and patient nausea. Anemia was noted at 7.3. WBC and platelets are normal. The CMP was essentially unremarkable. Lipase was negative. The troponin was negative. Type and screen was ordered immediately thereafter. Additional history was obtained and it was reported that the patient has extremely heavy flow periods and often times will have syncopal episodes secondary to this level of bleeding. No evaluation has been sought for this complaint. Rectal exam demonstrated normal brown stool. Guaiac negative. CT demonstrated quite large uterine fibroid but no other findings to explain the patient's level of discomfort. A GI cocktail was provided which did briefly resulted in significant improvement in her symptoms. The discomfort did slowly return over a period of observation. Carafate wasprovided and near complete resolution of pain was achieved. Patient did receive 1 L of fluid and did eventually provide a UA specimen. The urinalysis demonstrated no evidence of UTI Patient appeared well overall. I suspect the patient's anemia comes from the continued heavy bleeding from menstrual periods. Given her report of her normal hemoglobin being at 8 this is not a dramatic decrease and as such requires no additional management in the emergency department. I suspect that the large fibroid is a likely cause of the patient's level of flow during periods. I discussed theimportance of following up with CREATIVE PROJECT MANAGER and reiterated that syncopal episodes due to vaginal bleeding during menstrual period she is not an appropriate response and requires additional management. I have instructed the patient to contact her primary care doctor first thing Wednesday morning to discuss her presentation and findings today as well as anticipate referral to GI. Prescriptions for Carafateand Zofran were sent to the pharmacy of the patient's choice. Patient was discharged to home in stable condition with instructions to follow-up as above Problems Addressed: Chronic anemia: chronic illness or injury Gastritis: acute illness or injury Uterine fibroid: acute illness or injury Amount and/or Complexity of Data Reviewed Independent Historian: spouse Details: Spouse present at bedside and provides additional historical information Labs: ordered. Decision-making details documented in ED Course. Radiology: ordered. Decision-making details documented in ED Course. ECG/medicine tests: ordered and independent interpretation performed. Decision- making details documented in ED Course. Details: Rhythm strip ordered and interpreted. Rate 100. No ectopy. Risk OTC drugs. Prescription drug management. Parenteral controlled substances. Clinical Impression Gastritis (Primary) Uterine fibroid Chronic anemia Disposition: Discharge Rahul Lynn MD 03/12/24 0300 * Neena Plummer RN - 03/11/2024 11:12 PM CDT To ED with c/o severe abdominal pain that started a couple of hours ago has gotten progressively worse. Rates pain 05/11. documented in this encounter Plan of Treatment Not on file documented as of this encounter Procedures Procedure Name Priority Date/Time Associated Diagnosis Comments URINALYSIS, AUTO, COMPLETE STAT 03/12/2024 2:35 AM CDT OCCULT BLOOD, FECES STAT 03/12/2024 1 2:47 AM CDT ECG 12-LEAD Routine 03/12/2024 12:[address] ABD+PEL W CON STAT 03/11/2024 11:5 9 PM CDT TYPE & SCREEN STAT 03/11/2024 11:32 PM CDT COMPREHENSIVE METABOLIC PANEL STAT 03/11/2024 11:19 PM CDT CBC W/DIFF AUTOMATED STAT 03/11/2024 11:19 PM CDT TROPONIN, QUANT STAT 03/11/2024 11:19 PM CDT LIPASE STAT 03/11/2024 11:19 PM CDT documented in this encounter Results * (ABNORMAL) URINALYSIS, AUTO, COMPLETE (03/12/2024 2:35 AM CDT) COLOR (U) YELLOW 03/12/2024 2:52 AM CDT [facility] TRANSPARENCY CLEAR 03/12/2024 2:52 AM CDT [facility] SPECIFIC GRAVITY (U) 1.020 1.000 - 1.030 03/12/2024 2:52 AM CDT [facility] U PH 6.0 5.0 - 9.0 03/12/2024 2:52 AM CDT [facility] LEUKOCYTES (U) NEGATIVE NEGATIVE 03/12/2024 2:52 AM CDT [facility] NITRITES NEGATIVE NEGATIVE 03/12/2024 2:52 AM CDT [facility] PROTEIN RANDOM (U) NEGATIVE NEGATIVE 03/12/2024 2:52 AM CDT [facility] GLUCOSE (U) NEGATIVE NEGATIVE 03/12/2024 2:52 AM CDT [facility] KETONES MG/DL (U) TRACE(A) NEGATIVE 03/12/2024 2:52 AM CDT [facility] BILIRUBIN (U) NEGATIVE NEGATIVE 03/12/2024 2:52 AM CDT [facility] BLOOD (U) NEGATIVE NEGATIVE 03/12/2024 2:52 AM CDT [facility] WBC/HPF NONE SEEN 0 - 5 /HPF 03/12/2024 2:52 AM CDT [facility] RBC/HPF NONE SEEN 0 - 5 /HPF 03/12/2024 2:52 AM CDT [facility] EPI/HPF MODERATE /HPF 03/12/2024 2:52 AM CDT [facility] URINE SPECIMEN OBTAINED BY CLEAN CATCH PROCEDURE / Unknown 03/12/2024 2:35 AM CDT us Rahul Lynn MD URINE ORDERABLES Final Res ult Performing Organization Address [facility]/ZIP Co de Phone Number [facility] [address] [place] [address], [place] [phone] * OCCULT BLOOD, FECES (03/12/2024 12:47 AM CDT) OCCULT BLOOD FECAL NEGATIVE NEGATIVE 03/12/2024 1:22 AM CDT [facility] STOOL SPECIMEN / Unknown 03/12/2024 12:47 AM CDT us Rahul Lynn MD BODY FLUIDS AND STOOLS ORD ERABLES Final Result Performing Organization Address [facility]/ZIP Co de Phone Number [facility] [address] [place] [address], [place] [phone] * ECG 12 lead (03/12/2024 12:18 AM CDT) 03/12/2024 12:1 8 AM CDT Narrative [facility] RAD - 03/12/2024 1:33 PM CDT ?[facility] ? Test Date: ?2024-03-12 Pat Name: ? LANDEN TAWANNA ? Department: ?? 85 ? Room: ? EXAM 202 Gender: ? F ?Office Supervisor: ?? : ?1970 ? Requested By: RAHUL RATHERT Order Number: [id number] ? Reading MD: ?? Jaron Scally ? Measurements Intervals ?[place] ? Rate: ? 76 ? P: ?46 MI: ? 160 ?QRS: ?22 QRSD: ? 86 ? T: ?27 QT: ? 369 ? QTc: ?416 ? Interpretive Statements SINUS RHYTHM No previous ECG available for comparison Procedure Note Jaron Mcbride MD - 03/12/[address]24 [facility] Test Date: 2024-03-12 Pat Name: LANDEN STACY Department: 85 Room: EXAM 202 Gender: F Office Supervisor: : 1970 Requested By: RAHUL LYNN Order Number: [id number] Reading MD: Jaron Mcbride Measurements Intervals [place] Rate: 76 P: 46 MI: 160 QRS: 22 QRSD: 86 T: 27 QT: 369 QTc: 416 Interpretive Statements SINUS RHYTHM No previous ECG available for comparison us Rahul Lynn MD ECG ORDERABLES Final Resu lt [facility] RAD * CT ABD+PEL W IV CON ONLY (03/11/2024 11:59 PM CDT) Anatomical Region Laterality Modality Abdomen Computed Tomogra phy 03/12/2024 12:0 2 AM CDT Impressions 03/12/2024 12:07 AM CDT IMPRESSION: 1. ??Heterogeneous enlargement of the uterus with what appears to be a large submucosal uterine fibroid. 2. ??Mild distention of the gallbladder, but no gallstones or pericholecystic inflammatory change are identified. 3. ??Atherosclerotic changes of the aorta and iliac arteries. 4. ??Probable involuting left ovarian follicular cyst. Referred By: ?? Interpreted By: Jose Martin Youssef MD, 03/12/2024 12:02 AM Narrative 03/12/2024 12:07 AM CDT INDICATION: Epigastric pain and right upper quadrant abdominal pain. ??Vomiting. COMPARISON: None. TECHNIQUE: Axial images were obtained through the abdomen and pelvis with intravenous contrast. ??Additional images were reconstructed in the coronal plane. DOSE OPTIMIZATION: This facility uses dose optimization techniques as appropriate to perform exams, including at least one of the following techniques: 1. Automated exposure control. 2. Adjustment of the mA and/or kV according to patient size (this includes techniques or standardized protocols for targeted exams where dose is matched to the indication/reason for exam, i.e. extremities or head). 3. Use of iterative reconstructive technique. FINDINGS: Lung bases: Clear. Liver: Normal. Gallbladder: The gallbladder is mildly distended. ??However, no gallstones or pericholecystic inflammatory change are identified. Pancreas: Normal. Spleen: Normal. Adrenal glands: Normal. Kidneys: Normal. Abdominal wall: Normal. Stomach: Normal. Large and small bowel: The large and small bowel appears unremarkable given the absence of oral contrast. Appendix: Normal. Mesentery: Normal. Free fluid: There is a tiny amount of free fluid in the posterior pelvis, which is likely physiologic. Lymph nodes: No enlarged nodes. Vasculature: There are atherosclerotic calcifications of the aorta and iliac arteries. There is no aneurysm. Urinary bladder: Normal. Uterus: The uterus appears enlarged and heterogeneous. ??There is also what appears to be a large rounded mass lesion in the region of the endometrium or uterine cavity superiorly. ??This measures approximately 5.1 cm in diameter and may represent a large submucosal fibroid. Adnexa: The ovaries are not well visualized. ??There is suggestion of a small involuting left ovarian follicular cyst measuring 20 x 16 mm. ??There are bilateral pelvic clips, suggesting previous tubal ligation. Visualized osseous structures: There is no bony destructive process. Procedure Note Jose Martin Youssef MD - 03/12/2024 INDICATION: Epigastric pain and right upper quadrant abdominal pain.Vomiting. COMPARISON: None. TECHNIQUE: Axial images were obtained through the abdomen and pelvis withintravenous contrast. Additional images were reconstructed in the coronalplane. DOSE OPTIMIZATION: This facility uses dose optimization techniques asappropriate to perform exams, including at least one of the followingtechniques: 1. Automated exposure control. 2. Adjustment of the mA and/or kV according to patient size (this includestechniques or standardized protocols for targeted exams where dose ismatched to the indication/reason for exam, i.e. extremities or head). 3. Use of iterative reconstructive technique. FINDINGS: Lung bases: Clear. Liver: Normal. Gallbladder: The gallbladder is mildly distended. However, no gallstonesor pericholecystic inflammatory change are identified. Pancreas: Normal. Spleen: Normal. Adrenal glands: Normal. Kidneys: Normal. Abdominal wall: Normal. Stomach: Normal. Large and small bowel: The large and small bowel appears unremarkablegiven the absence of oral contrast. Appendix: Normal. Mesentery: Normal. Free fluid: There is a tiny amount of free fluid in the posterior pelvis,which is likely physiologic. Lymph nodes: No enlarged nodes. Vasculature: There are atherosclerotic calcifications of the aorta andiliac arteries. There is no aneurysm. Urinary bladder: Normal. Uterus: The uterus appears enlarged and heterogeneous. There is also whatappears to be a large rounded mass lesion in the region of the endometriumor uterine cavity superiorly. This measures approximately 5.1 cm indiameter and may represent a large submucosal fibroid. Adnexa: The ovaries are not well visualized. There is suggestion of asmall involuting left ovarian follicular cyst measuring 20 x 16 mm. Thereare bilateral pelvic clips, suggesting previous tubal ligation. Visualized osseous structures: There is no bony destructive process. IMPRESSION: 1. Heterogeneous enlargement of the uterus with what appears to be alarge submucosal uterine fibroid. 2. Mild distention of the gallbladder, but no gallstones orpericholecystic inflammatory change are identified. 3. Atherosclerotic changes of the aorta and iliac arteries. 4. Probable involuting left ovarian follicular cyst. Referred By: Interpreted By: Jose Martin Youssef MD, 03/12/2024 12:02 AM us Rahul Lynn MD CT Final Resu lt * TYPE AND SCREEN (03/11/2024 11:32 PM CDT) ABO/RH O POSITIVE 03/11/2024 11:54 PM CDT [facility] ANTIBODY SCREEN NEGATIVE 12:05 AM CDT [facility] SAMPLE EXPIRATION 03/14/2024,235 9 03/11/2024 11:54 PM CDT [facility] BLOOD UNIT NUMBER [id number] 03/12/2024 12:05 AM CDT [facility] PRODUCT: PC LEUKOPOOR 03/12/2024 12:05 AM CDT [facility] UNIT DIVISION 00 03/12/2024 12:05 AM CDT [facility] BLOOD UNIT STATUS UNIT RELEASED 03/15/2024 1:06 AM CDT [facility] TRANSFUSION STATUS OK TO TRANSFUSE 03/12/2024 12:05 AM CDT [facility] CROSSMATCH COMPATIBLE 03/12/2024 12:05 AM CDT [facility] 03/11/2024 11:3 2 PM CDT us Rahul Lynn MD BLOOD BANK TEST ORDERABLES Final Result Performing Organization Address [facility] [[email or web address]] Co de Phone Number [facility] [address] [place] [address], * LIPASE (03/11/2024 11:19 PM CDT) LIPASE 72 16 - 77 UNITS/L 03/11/2024 11:40 PM CDT [facility] 03/11/2024 11:1 9 PM CDT us Rahul Lynn MD LABORATORY Final Resu lt Performing Organization Address City/[facility]/ZIP Co de Phone Number [facility] [address] [place] [id number], [place] [phone] * TROPONIN, QUANT (03/11/2024 11:19 PM CDT) [facility] TROPONIN I HIGH SENSITIVITY 4 0 - 50 ng/L 03/11/2024 11:43 PM CDT [facility] Comment: HIGH DOSES OF BIOTIN, TROPONIN-SPECIFIC AUTOANTIBODIES, AND ANTIBODY THERAPY CONTAINING HAMA MAY INTERFERE WITH THIS TEST RESULT. CORRELATION TO CLINICAL HISTORY AND PRESENTATION RECOMMENDED. 03/11/2024 11:1 9 PM CDT us Rahul Lynn MD LABORATORY Final Resu lt [facility] [address] [place] [address], [place] [phone] * (ABNORMAL) COMPREHENSIVE METABOLIC PANEL (03/11/2024 11:19 PM CDT) [facility] GLUCOSE 97 70 - 99 MG/DL 03/11/2024 11:40 PM CDT [facility] BUN 18 7 - 18 MG/DL 03/11/2024 11:40 PM CDT [facility] CREATININE S/P/B 0.62 0.55 - 1.02 MG/DL 03/11/2024 11:40 PM CDT [facility] SODIUM S/P/B 143 136 - 145 MMOL/L 03/11/2024 11:40 PM CDT [facility] POTASSIUM S/P/B 4.0 3.5 - 5.1 MMOL/L 03/11/2024 11:40 PM CDT [facility] CHLORIDE S/P/B 108 100 - 108 MMOL/L 03/11/2024 11:40 PM CDT [facility] CO2 22.8 21 - 32 MMOL/L 03/11/2024 11:40 PM CDT [facility] CALCIUM S/P/B 8.3(L) 8.5 - 10.1 MG/DL 03/11/2024 11:40 PM [facility] BILIRUBIN TOTAL S/P/B 0.2 0.2 - 1.2 MG/DL 03/11/2024 11:40 PM [facility] TOTAL PROTEIN S/P/B 5.9(L) 6.4 - 8.2 G/DL 03/11/2024 11:40 PM [facility] ALBUMIN S/P/B 3.3(L) 3.4 - 5.0 G/DL 03/11/2024 11:40 PM [facility] AST 12(L) 15 - 37 U/L 03/11/2024 11:40 PM [facility] ALT 16 14 - 55 U/L 03/11/2024 11:40 PM [facility] ALKALINE PHOSPHATASE S/P/B 55 50 - 136 U/L 03/11/2024 11:40 PM [facility] ANION GAP 12.2 5 - 15 MMOL/L 03/11/2024 11:40 PM [facility] BUN CREATININE RATIO 29.0(H) 6 - 26 03/11/2024 11:40 PM [facility] A/G RATIO 1.3 1.0 - 2.0 RATIO 03/11/2024 11:40 PM [facility] GFR ESTIMATE >90 >90 ML/MIN/1.7 3 M2 03/11/2024 11:40 PM [facility] Comment: NOTE: eGFR is not calculated for patients <18 years of age. This is an estimated GFR calculation using the new CKD EPI creatinine equation without race and so does not require a correction factor for race. This estimated GFR should not be used for calculating drug doses. 03/11/2024 11:1 9 PM CDT us Rahul Lynn MD LABORATORY Final Resu lt [facility] [address] [place] [address], [place] [phone] * (ABNORMAL) CBC W/DIFF AUTOMATED (03/11/2024 11:19 PM CDT) WBC 7.75 4.4 - 11.0 x10'3/uL 03/11/2024 11:26 PM CDT [facility] RBC 3.85(L) 4.50 - 5.10 x10'6/uL 03/11/2024 11:26 PM CDT [facility] HGB 7.3(L) 12.3 - 15.3 G/DL 03/11/2024 11:26 PM CDT [facility] HCT 26.0(L) 35.9 - 44.6 % 03/11/2024 11:26 PM CDT [facility] MCV 67.5(L) 80.0 - 96.0 FL 03/11/2024 11:26 PM CDT [facility] MCH 19.0(L) 25.3 - 30.9 PG 03/11/2024 11:26 PM CDT [facility] MCHC 28.1(L) 31.0 - 34.1 G/DL 03/11/2024 11:26 PM CDT [facility] RDW 18.2(H) 12.4 - 15.1 % 03/11/2024 11:26 PM CDT [facility] PLT 316 151 - 353 x10'3/uL 03/11/2024 11:26 PM CDT [facility] MPV 9.1(L) 9.6 - 12.0 FL 03/11/2024 11:26 PM CDT [facility] RBC MORPHOLOGY NORMAL 03/11/2024 11:26 PM CDT [facility] PLT MORPH. NORMAL 03/11/2024 11:26 PM CDT [facility] WBC MORPHOLOGY NORMAL 03/11/2024 11:26 PM CDT [facility] LYMPHOCYTES % 34.3 15.8 - 45.0 % 03/11/2024 11:26 PM CDT [facility] NEUTROPHILS % 54.5 42.1 - 71.9 % 03/11/2024 11:26 PM CDT [facility] MONOCYTES % 8.6 5.7 - 12.5 % 03/11/2024 11:26 PM CDT [facility] EOSINOPHILS 1.9 0.0 - 5.6 % 03/11/2024 11:26 PM CDT [facility] BASOPHILS 0.4 0.0 - 1.3 % 03/11/2024 11:26 PM CDT [facility] ABS. NEUTROPHILS 4.22 1.40 - 6.00 x10'3/uL 03/11/2024 11:26 PM CDT [facility] IMMATURE GRANS % 0.3 0.0 - 0.5 % 03/11/2024 11:26 PM CDT [facility] ABS. LYMPHOCYTES 2.66 0.80 - 4.70 x10'3/uL 03/11/2024 11:26 PM CDT [facility] 03/11/2024 11:1 9 PM CDT us Rahul Lynn MD LABORATORY Final Resu lt [facility] [address] [place] [address], documented in this encounter Visit Diagnoses Diagnosis Gastritis- Primary Unspecified gastritis and gastroduodenitis without mention of hemorrhage Uterine fibroid Leiomyoma of uterus, unspecified Chronic anemia Anemia, unspecified documented in this encounter Administered Medications Inactive Administered Medications - up to 3 most recent administrations Medication Order MAR Action Action Date Dose Rate Site iopamidol (ISOVUE-370) 76 % injection 50 mL 50 mL, Intravenous, IMG once as needed, Contrast, 1 dose, Starting on 03/11/24 at 2359, Until 03/11/24 at 2359 Given 03/11/2024 11:59 PM CDT 50 mLs Left Arm maalox plus-lidocaine viscous (GI COCKTAIL PLAIN) 45 mL suspension Oral, Once, 1 dose, On 03/12/24 at 0045 Given 03/12/2024 12:56 AM CDT morphine injection 2 mg 2 mg, Intravenous, Once, 1 dose, On 03/11/24 at 2330 Given 03/11/2024 11:26 PM CDT 2 mg ondansetron (ZOFRAN) injection 4 mg 4 mg, Intravenous, Once, 1 dose, On 03/11/24 at 2330, IV push over 2-5 minutes. Given 03/11/2024 11:26 PM CDT 4 mg sodium chloride 0.9% bolus infusion 1,000 mL 1,000 mL, Intravenous, Administer over 60 Minutes, Once, 1 dose, On 03/11/24 at 2330 New Bag 03/11/2024 11:26 PM CDT 1,000 mLs 1000 mL/hr sucralfate (CARAFATE) tablet 1 g 1 g, Oral, Once, 1 dose, On 03/12/24 at 0130, Administer on empty stomach. Do not administer antacids within 30 minutes of sucralfate; separate administration of other medications and sucralfate by at least two hours. Given 03/12/2024 1:23 AM CDT 1 g documented in this encounter Active and Recently Administered Medications Times are shown in CDT. Scheduled Medication Order 03/10/2024 03/11/2024 03/12/2024 maalox plus-lidocaine viscous (GI COCKTAIL PLAIN) 45 mL suspension (COMPLETED) Oral, Once, 1 dose, On 03/12/24 at 0045 0056 (Given - Provid er: Neena Plummer RN) morphine injection 2 mg (COMPLETED) 2 mg, Intravenous, Once, 1 dose, On 03/11/24 at 2330 2326 (Given - Provider: Neena Plummer RN) ondansetron (ZOFRAN) injection 4 mg (COMPLETED) 4 mg, Intravenous, Once, 1 dose, On 03/11/24 at 2330, IV push over 2-5 minutes. 2326 (Given - Provider: Neena Plummer RN) sodium chloride 0.9% bolus infusion 1,000 mL (COMPLETED) 1,000 mL, Intravenous, Administer over 60 Minutes, Once, 1 dose, On 03/11/24 at 2330 2326 (New Bag - Provider: Neena Plummer RN) 0220 (Infusion Stop Time - Provider: Neena Plummer RN) sucralfate (CARAFATE) tablet 1 g (COMPLETED) 1 g, Oral, Once, 1 dose, On 03/12/24 at 0130, Administer on empty stomach. Do not administer antacids within 30 minutes of sucralfate; separate administration of other medications and sucralfate by at least two hours. 0123 (Given - Provid er: Neena Plummer RN) PRN Medication Order 03/10/2024 03/11/2024 03/12/2024 iopamidol (ISOVUE-370) 76 % injection 50 mL (COMPLETED) 50 mL, Intravenous, IMG once as needed, Contrast, 1 dose, Starting on 03/11/24 at 2359, Until 03/11/24 at 2359 2359 (Given - Provider: Yanira Rodriguez, RTR) documented in this encounter Care Teams Officer Lieutenant Relationship Specialty Start Date End Date Michael Arias MD [address] [place] [address] PCP - General FAMILY PRACTICE 03/11/24 documented as of this encounter
--- OUTSIDE RECORDS SUMMARY | 2024-07-22 09:38 | XMS_ITS | Clinical Summary ---
Author Organization [facility] Address [address] [place] [address]. [place] [address] [place] [address] Care Team Providers Care Loan Officer Assistant Name Role Phone Michael Arias MD Primary Care Provider [phone] Allergies No known active allergies Medications ondansetron (ZOFRAN-ODT) 4 MG disintegrating tablet Take 1 tablet (4 mg total) by mouth every 8 (eight) hours as needed for Nausea. 20 tablet 4 Active sucralfate (CARAFATE) 1 G tablet Take 1 tablet (1 g total) by mouth 4 (four) times daily before meals and nightly. 120 tablet 4 Active Social History Tobacco Use Types Packs/Day Years [...] Mass Index 22.02 03/11/2024 11:14 PM CDT Plan of Treatment Health Maintenance Due Date Last Done Comments Cervical Cancer Screening Pa p Smear (Age 30 to 64) Every 3 Years 1972 Annual Physical 1975 Hepatitis C 1990 DTaP, Tdap and Td Vaccines ( 1 - Tdap) 1991 Hepatitis B Vaccines (1 of 3 - 19+ 3-dose series) 1991 Cervical Cancer Screening Pa p with HPV Testing (Age 30 to 64) Every 5 Years 2002 Cervical Cancer Screening wi th HPV 2002 Mammogram Screening 2012 Zoster Vaccines (1 of 2) 2022 COVID-19 Vaccine (3 - 2023-2 5 season) 2024 03/23/2021, 02/18/2021 Influenza Adult (#1) 2024 05/13/2018 Colorectal Cancer Screening FIT/FOBT (1 Year) 03/12/2025 03/12/2024 Pneumococcal Vaccine: Pediatrics (0 to 5 Years) and At-Risk Patients (6 to 64 Years) Aged Out 05/30/2018 No longer eligible b ased on patient's age to complete this topic Meningococcal Vaccine Aged Out No jennifer jem eligible based on patient's age to complete this topic RSV Immunizations Under 20 Months Aged Out No longer eligible b ased on patient's age to complete this topic Procedures Procedure Name Priority Date/Time Associated Diagnosis Comments OCCULT BLOOD, FECES STAT 03/12/2024 1 2:47 AM CDT from Last 3 Months or Most Recently Relevant to Health Maintenance Results * OCCULT BLOOD, FECES (03/12/2024 12:47 AM CDT) OCCULT BLOOD FECAL NEGATIVE NEGATIVE 03/12/2024 1:[address] [facility] STOOL SPECIMEN / Unknown 03/12/2024 12:47 AM CDT us Rahul Langston MD BODY FLUIDS AND STOOLS ORD ERABLES Final Result [facility] [address] [place] [address], [place] [phone] from Last 3 Months or Most Recently Relevant to Health Maintenance Insurance MEDICAID MEDICAID Care Teams Loan Officer Assistant Relationship Specialty Start Date End Date Michael Arias MD [address] [place] [id number] PCP - General FAMILY PRACTICE 03/11/24
--- OUTSIDE RECORDS SUMMARY | 2024-07-22 09:38 | XMS_ITS | Encounter Summary ---
Author Organization [facility] Address [address] [place] [address] Phone Care Team Providers Care Open Tenter Operator Name Role Phone Luna Trevino APRN, COMMUNITY SUPPORT WORKER Primary Care P [email or web address] Reason for Visit * Reason Comments Dental Pain Encounter Details Date Type Department Care Team (Latest Contact Info) Description 09/13/2020 5:20 PM HYPO DIPPER [facility] [place] [address] [place] [phone] Marga Mera APRN, COMMUNITY SUPPORT WORKER [address] [place] [address] Dental abscess (Primary Dx) Discharge Disposition: Discharged to home or Selfcare Social History Tobacco Use Types Packs/Day Years Used Date Smoking Tobacco: Every Day Cigarettes Smokeless Tobacco: Never Alcohol Use Standard Drinks/Week Comments Yes 0 (1 standard drink = 0.6 oz pur e alcohol) PHQ-2 Answer Date Recorded PHQ-2 Score 0 04/15/2019 Sexually Active Control Partners Comments Yes Comments No Sex and Gender Information Value Date Recorded Sex Assigned at Not on file Legal Sex Female 10:28 AM CDT Gender Identity Not on file Sexual Orientation Not on file COVID-19 Exposure Response Date Recorded In the last month, have you been in contact with someone who was confirmed or suspected to have Coronavirus / COVID-19? No / Unsure 09/13/2020 5:17 PM HYPO DIPPER documented as of this encounter Last Filed Vital Signs Vital Sign Reading Time Taken Comments Blood Pressure 124/74 09/13/2020 5:21 PM HYPO DIPPER Pulse 88 09/13/2020 5:21 PM HYPO DIPPER Temperature 36.4 ??C (97.5 ??F) 09/13/2020 5:21 PM CS T Respiratory Rate - - Oxygen Saturation 98% 09/13/2020 5:21 PM HYPO DIPPER Inhaled Oxygen Concentration - - Weight - - Height - - Body Mass Index - - documented in this encounter Progress Notes * Shayla Thomas RMA - 09/13/2020 5:20 PM CST Elda Stacy complains of 2 days of right sided tooth pain that is possibly abscessed. Dental Pain This is a new problem. The current episode started in the past 7 days. The problem has been gradually worsening. The pain is moderate. She has tried NSAIDs and acetaminophen for the symptoms. The treatment provided mild relief. Today's ROS DIPPER * Marga Mera APN, COMMUNITY SUPPORT WORKER - 09/13/2020 5:20 PM CST Images from the original note were not included. Subjective: Olena Stacy is a 50 y.o. female in the prompt care today for right side dental pain. Symptoms started 2 days Severity of symptoms is mild Associated symptoms include right upper jaw pain, swelling Patient is currently taking over the counter ibuprofen or tylenol for the symptoms. Smoker: every day Poor dentation all of her life and have extensive dental surgery next month No pertinent Past, family, or social history was noted Review of Systems Constitutional: Negative for chills and fever. HENT: Positive for dental problem (right upper jaw tooth abscess). Objective: Physical Exam Vitals and nursing note reviewed. Constitutional: Appearance: Normal appearance. She is normal weight. HENT: Head: Normocephalic and atraumatic. Jaw: Tenderness (right) and swelling (right) present. Comments: Right cheek edema external and buccal edema inside. Cardiovascular: Rate and Rhythm: Normal rate. Pulmonary: Effort: Pulmonary effort is normal. Musculoskeletal: Cervical back: Normal range of motion and neck supple. Skin: General: Skin is warm and dry. Neurological: Mental Status: She is alert and oriented to person, place, and time. Mental status is at baseline. Psychiatric: Mood and Affect: Mood normal. Behavior: Behavior normal. Thought Content: Thought content normal. Judgment: Judgment normal. Assessment and Plan See Diagnoses, Orders, Follow-up, and Instructions 1. Dental abscess - amoxicillin-clavulanate (AUGMENTIN) 875-125 MG Tablet; Take 1 Tablet by mouth 2 times daily for 10 days. Dispense: 20 Tablet; Refill: 0 Ibuprofen as needed for pain AVS from today was printed, discussed with patient/family and given to patient/family DIPPER documented in this encounter Plan of Treatment Not on file documented as of this encounter Visit Diagnoses Diagnosis Dental abscess- Primary Periapical abscess without sinus documented in this encounter Additional Health Concerns Assessment Noted Time PHQ-9 Depression Total Score: 0 05/30/20 18 9:00 AM CDT documented as of this encounter Care Teams Open Tenter Operator Relationship Specialty Start Date End Date Luna Trevino APRN, ROBY [address] [place] [address] PCP - General Advanced Practice Nurse 05/30/1806/26 documented as of this encounter
--- OUTSIDE RECORDS SUMMARY | 2024-07-22 09:38 | XMS_ITS | Encounter Summary ---
Author Organization [facility] Address [address] [place] [address]. [place], [place] [address] [place] [address] Care Team Providers Care Clam Grower Name Role Phone Michael Arias MD Primary Care Provider [phone] Encounter Details Date Type Department Care Team (Latest Contact Info) Description 03/11/2024 Travel Social History Tobacco Use Types Packs/Day Years Used Date Smoking Tobacco: Never Passive Smoke Exposure: Never Smokeless Tobacco: Never Alcohol Use Standard Drinks/Week Comments Not Currently 0 (1 standard drink = 0.6 oz pur e alcohol) Comments No Sex and Gender Information Value Date Recorded Sex Assigned at Not on file Legal Sex Female 11:10 PM CDT Gender Identity Not on file Sexual Orientation Not on file documented as of this encounter Plan of Treatment Not on file documented as of this encounter Visit Diagnoses Not on filedocumented in this encounter Care Teams Clam Grower Relationship Specialty Start Date End Date Michael Arias MD [address] [place] [id number] PCP - General FAMILY PRACTICE 03/11/24 documented as of this encounter
--- OUTSIDE RECORDS SUMMARY | 2024-07-22 09:38 | XMS_ITS | Encounter Summary ---
Author Organization [facility] Care Team Providers Care Retrieval Specialist Name Role Phone Luna Trevino APRN, CNP Primary Care P rovider Encounter Details Date Type Department Care Team (Latest Contact Info) Description 09/13/2020 Travel Social History Tobacco Use Types Packs/Day [...] COVID-19? No / Unsure 09/13/2020 5:17 PM [employer] documented as of this encounter Plan of Treatment Not on file documented as of this encounter Visit Diagnoses Not on filedocumented in this encounter Additional Health Concerns Assessment Noted Time PHQ-9 Depression Total Score: 0 05/30/20 18 9:00 AM CDT documented as of this encounter Care Teams Retrieval Specialist Relationship Specialty Start Date End Date Luna Trevino APRN, CNP [address] [place] [address] PCP - General Advanced Practice Nurse 05/30/1806/26 documented as of this encounter
== END 2024-07-17 10:08 | disposition home or self-care (01) ==
PROVIDERS: PCP Family Medicine; Visit Provider Obstetrics & Gynecology Gynecology
PROC: 0U5B8ZZ Destruction of Endometrium, Via Natural or Artificial Opening Endoscopic (ICD-10-PCS; CPT 58563; principal; 2024-07-17 08:30)
DX: N92.0 Excessive and frequent menstruation with regular cycle (principal); D25.9 Leiomyoma of uterus, unspecified; D64.9 Anemia, unspecified; Z87.891 Personal history of nicotine dependence
CPT/HCPCS: 58558; 88305; A9270; J2250; J2704; J3010; J7120

== ENCOUNTER 2024-08-05 08:23 | Outpatient (CLI) | payer OTHER, SELFPAY ==
[2024-08-05 10:14] LABS: Hematocrit 32.4 % (37.0-47.0); Hemoglobin 9.2 g/dL (12.0-15.0)
== END 2024-08-05 08:24 | disposition home or self-care (01) ==
LOC: ANHLAB 08:27
PROVIDERS: PCP Family Medicine; Visit Provider Obstetrics & Gynecology Gynecology
DX: R79.9 Abnormal finding of blood chemistry, unspecified (principal)
CPT/HCPCS: 36415; 85014; 85018

== ENCOUNTER 2024-08-07 18:00 | Emergency (ER) | payer OTHER, SELFPAY ==
--- NOTE | ~2024-08-07 | XR_ITS ---
CHEST RADIOGRAPH, PA AND LATERAL CLINICAL HISTORY: SOB . COMPARISON: 07/11/2024 TECHNIQUE: PA and lateral views of the chest. FINDINGS The cardiomediastinal silhouette is unremarkable. Redemonstration of a irregular nodule within the right upper lobe for which noncontrast enhanced CT i s recommended. The remainder of the lungs are clear. IMPRESSION: Redemonstration of a irregular nodule within the right upper lobe for which noncontrast enhanced CT i s recommended. Reviewed, dictated and finalized at location A. D JET CUTTER OPERATOR IMPRESSION: Redemonstration of a irregular nodule within the right upper lobe for which non contrast enhanced CT is recommended.
--- NOTE | 2024-08-07 18:27 | ED_ITS ---
HPI - Female Genitourinary General Chief complaint: Vaginal Bleeding <Mariana Blackman PA-C - Last Filed: 08/08/24 17:03> Stated complaint: VAG BLEEDING, SOB <Mariana Blackman PA-C - Last Filed: 08/08/24 17:03> Time Seen by Provider: 08/07/24 18:27 <Mariana Blackman PA-C - Last Filed: 08/08/24 17:03> Focused HPI: This is a 54 year old female that presents to the ER for vaginal bleeding. Reports a recent biopsy with Dr. Newton. She has been bleeding since. Reports history of needing a transfusion due to anemia. GENERAL: Well-appearing, well-nourished, and in no acute distress. HEAD: Normocephalic, atraumatic. CHEST: Clear to auscultation. ?No respiratory distress. HEART: Regular rate and rhythm.? NEURO: ?Alert and oriented x3. Patient screened in triage and initial orders placed.? ?Additional care and disposition to be based upon?diagnostic testing and treatment. <Mariana Blackman PA-C - Last Filed: 08/08/24 17:03> History of Present Illness HPI Narrative: Patient 54-year-old female who presents emergency department with chief complaint of vaginal bleeding and generalized malaise. Patient reports that she recently had a biopsy with D&C and she also had significant anemia that required blood transfusion. The patient states that she started having a fever today body aches and not feeling well and also was still having vaginal bleeding she had been treated with TXA by her OBGYN and reports that she is passing clots that are smaller than the size of a quarter the patient states she is concerned that she may be anemic <Ramakrishna Allen MD - Last Filed: 08/07/24 22:23> Related Data Home medications: Home Medications ?Medication ?Instructions ?Recorded ?Confirmed ?Last Taken ?Type omeprazole 20 mg capsule,delayed 20 mg PO DAILY 07/10/24 07/17/24 07/16/24 History release tirzepatide (weight loss) 12.5 12.5 mg subcut WEEKLY 07/10/24 07/17/24 07/10/24 History mg/0.5 mL subcutaneous pen injector (Zepbound) <Mariana Blackman PA-C - Last Filed: 08/08/24 17:03> Allergies/Adverse reactions: Allergies Allergy/AdvReac Type Severity Reaction Status Date / Time No Known Allergies Allergy Verified 08/07/24 18:01 <Mariana Blackman PA-C - Last Filed: 08/08/24 17:03> Review of Systems 2 Review of Systems: A 10 system review of systems was completed on the patient and is negative except for what is stated in the HPI. Nursing and ancillary documentation was reviewed. <Ramakrishna Allen MD - Last Filed: 08/07/24 22:23> PMFSH Past Medical History Medical History: Medical History PCOS (polycystic ovarian syndrome) (normal spontaneous vaginal delivery) x2 History of uterine fibroid <Mariana Blackman PA-C - Last Filed: 08/08/24 17:03> Surgical History Surgical History: Surgical History Status post tubal ligation <Mariana Blackman PA-C - Last Filed: 08/08/24 17:03> Social History Social History: Social History Smoking packs per day: 0.5 Smoking cigarettes per day: 10.0 Years smoked: 15 Smoking pack-years: 7.50 Tobacco type: e-cigarettes/vaping Smoking end date: 08/02/18 Substance use: never Substance use type: does not use Living arrangements: with family Spiritual care concerns: No <Mariana Blackman PA-C - Last Filed: 08/08/24 17:03> Exam 2 Narrative: GENERAL: Well-appearing, well-nourished, and in no acute distress. HEAD: Normocephalic, atraumatic. EYES: PERRLA and EOMI. ENT: Nares clear, no rhinorrhea or epistaxis. Mucous membranes moist. NECK: Supple. CHEST: Clear to auscultation. No respiratory distress. HEART: Regular rate and rhythm. No murmur heard. Normal peripheral pulses. ABDOMEN: Soft, nontender, nondistended, normal active bowel sounds. EXTREMITIES: Normal range of motion. No edema. SKIN: Warm, dry, no rash. NEURO: No focal deficits. Alert and oriented x3. PSYCH: Normal mood and affect. <Ramakrishna Allen MD - Last Filed: 08/07/24 22:23> Course Vital Signs Vital signs: Vital Signs Temperature 100 F H 08/07/24 18:34 Pulse Rate 107 H 08/07/24 18:34 Respiratory Rate 19 08/07/24 18:34 Blood Pressure 130/56 L 08/07/24 18:34 Pulse Oximetry 100 08/07/24 18:34 Oxygen Delivery Room Air 08/07/24 18:34 Temperature 97.7 F 08/07/24 23:01 Pulse Rate 99 08/07/24 23:01 Respiratory Rate 19 08/07/24 23:01 Blood Pressure 127/59 L 08/07/24 23:01 Pulse Oximetry 100 08/07/24 23:01 Oxygen Delivery Room Air 08/07/24 18:34 <Mariana Blackman PA-C - Last Filed: 08/08/24 17:03> Vital Signs Temperature 100 F H 08/07/24 18:34 Pulse Rate 107 H 08/07/24 18:34 Respiratory Rate 19 08/07/24 18:34 Blood Pressure 130/56 L 08/07/24 18:34 Pulse Oximetry 100 08/07/24 18:34 Oxygen Delivery Room Air 08/07/24 18:34 Temperature 97.7 F 08/07/24 23:01 Pulse Rate 99 08/07/24 23:01 Respiratory Rate 19 08/07/24 23:01 Blood Pressure 127/59 L 08/07/24 23:01 Pulse Oximetry 100 08/07/24 23:01 Oxygen Delivery Room Air 08/07/24 18:34 <Ramakrishna Allen MD - Last Filed: 08/07/24 22:23> MDM - Female Genitourinary MDM Narrative Medical decision making narrative: Differential diagnosis includes anemia, COVID-19, pneumonia, Laboratory studies were obtained on the patient showed a hemoglobin of 8.6 this is not significantly decreased. Electrolytes are within normal limits COVID was positive chest x-ray showed no evidence of pneumonia Chest x-ray showed the nodule that has previously been present <Ramakrishna Allen MD - Last Filed: 08/07/24 22:23> Lab Data Result diagrams: 08/07/24 19:00 08/07/24 19:00 <Mariana Blackman PA-C - Last Filed: 08/08/24 17:03> Labs: Lab Results 08/07/24 08/07/24 08/07/24 Range/Units 18:59 19:00 19:01 WBC 5.8 (4.5-10.0) K/mm3 RBC 4.20 (4.2-5.4) M/mm3 Hgb 8.6 L (12.0-15.0) g/dL Hct 29.4 L (37.0-47.0) % MCV 70.0 L (80-100) fl MCH 20.5 L (26-34) pg MCHC 29.3 L (32-36) g/dl RDW 22.6 H (11.5-14.5) % Plt Count 243 (150-375) k/mm3 MPV 9.0 (7.4-10.4) fl Immature Gran % (Auto) 0.3 (0-0.5) % Neut % (Auto) 73.5 H (45.5-73.1) % Lymph % (Auto) 14.5 L (18.3-44.2) % Perkins % (Auto) 10.2 H (2.6-8.5) % Eos % (Auto) 1.0 (0-4.4) % Baso % (Auto) 0.5 (0.2-1.2) % Lymph # (Auto) 0.84 L (0.9-3.2) K/mm3 Perkins # (Auto) 0.6 (0.1-0.6) K/mm3 Eos # (Auto) 0.1 (0-0.3) K/mm3 Baso # (Auto) 0.0 (0.0-0.1) K/mm3 Abs Immat Gran (auto) 0.02 (0.00-0.031) K/mm3 Absolute Neuts (auto) 4.2 (1.3-6.7) K/mm3 Absolute Nucleated RBC 0.000 (0.0-0.012) K/mm3 Nucleated RBC % 0.0 (0.0-0.2) % Platelet Estimate Adequate (Adequate) Hypochromasia 1+ Anisocytosis 3+ Microcytosis 1+ (NORMAL) Schistocytes None seen PT 13.1 (11.1-14.7) Seconds INR 1.0 APTT 29.8 (22.3-36.8) Seconds Sodium 134 L (137-145) mmol/L Potassium 4.1 (3.4-5.0) mmol/L Chloride 105 (98-107) mmol/L Carbon Dioxide 26 (22-30) mmol/L Anion Gap 3 L (4-12) mmol/L BUN 9 (7-17) mg/dL Creatinine 0.59 L (0.7-1.0) mg/dL Estim Creat Clear Calc 75 ml/min Estimated GFR > 60 (59 - ) Glucose 89 (65-110) mg/dL Calcium 8.9 (8.4-10.2) mg/dL Total Bilirubin 0.4 (0.2-1.3) mg/dL AST 19 (14-36) U/L ALT 12 (6-35) U/L Alkaline Phosphatase 52 (38-126) U/L Total Protein 7.0 (6.3-8.2) g/dL Albumin 3.8 (3.5-5.1) g/dL Influenza A (RT-PCR) Negative (Negative) Influenza B (RT-PCR) Negative (Negative) RSV (RT-PCR) Negative (Negative) SARS-CoV-2 RNA (RT-PCR) Positive A (Negative) Blood Type O Positive Antibody Screen Negative <Mariana Blackman PA-C - Last Filed: 08/08/24 17:03> Lab Results 08/07/24 08/07/24 08/07/24 Range/Units 18:59 19:00 19:01 WBC 5.8 (4.5-10.0) K/mm3 RBC 4.20 (4.2-5.4) M/mm3 Hgb 8.6 L (12.0-15.0) g/dL Hct 29.4 L (37.0-47.0) % MCV 70.0 L (80-100) fl MCH 20.5 L (26-34) pg MCHC 29.3 L (32-36) g/dl RDW 22.6 H (11.5-14.5) % Plt Count 243 (150-375) k/mm3 MPV 9.0 (7.4-10.4) fl Immature Gran % (Auto) 0.3 (0-0.5) % Neut % (Auto) 73.5 H (45.5-73.1) % Lymph % (Auto) 14.5 L (18.3-44.2) % Perkins % (Auto) 10.2 H (2.6-8.5) % Eos % (Auto) 1.0 (0-4.4) % Baso % (Auto) 0.5 (0.2-1.2) % Lymph # (Auto) 0.84 L (0.9-3.2) K/mm3 Perkins # (Auto) 0.6 (0.1-0.6) K/mm3 Eos # (Auto) 0.1 (0-0.3) K/mm3 Baso # (Auto) 0.0 (0.0-0.1) K/mm3 Abs Immat Gran (auto) 0.02 (0.00-0.031) K/mm3 Absolute Neuts (auto) 4.2 (1.3-6.7) K/mm3 Absolute Nucleated RBC 0.000 (0.0-0.012) K/mm3 Nucleated RBC % 0.0 (0.0-0.2) % Platelet Estimate Adequate (Adequate) Hypochromasia 1+ Anisocytosis 3+ Microcytosis 1+ (NORMAL) Schistocytes None seen PT 13.1 (11.1-14.7) Seconds INR 1.0 APTT 29.8 (22.3-36.8) Seconds Sodium 134 L (137-145) mmol/L Potassium 4.1 (3.4-5.0) mmol/L Chloride 105 (98-107) mmol/L Carbon Dioxide 26 (22-30) mmol/L Anion Gap 3 L (4-12) mmol/L BUN 9 (7-17) mg/dL Creatinine 0.59 L (0.7-1.0) mg/dL Estim Creat Clear Calc 75 ml/min Estimated GFR > 60 (59 - ) Glucose 89 (65-110) mg/dL Calcium 8.9 (8.4-10.2) mg/dL Total Bilirubin 0.4 (0.2-1.3) mg/dL AST 19 (14-36) U/L ALT 12 (6-35) U/L Alkaline Phosphatase 52 (38-126) U/L Total Protein 7.0 (6.3-8.2) g/dL Albumin 3.8 (3.5-5.1) g/dL Influenza A (RT-PCR) Negative (Negative) Influenza B (RT-PCR) Negative (Negative) RSV (RT-PCR) Negative (Negative) SARS-CoV-2 RNA (RT-PCR) Positive A (Negative) Blood Type O Positive Antibody Screen Negative <Ramakrishna Allen MD - Last Filed: 08/07/24 22:23> Imaging Data Radiologist's impression: ITS Impressions Chest X-Ray 08/07/24 20:00 IMPRESSION: Redemonstration of a irregular nodule within the right upper lobe for which noncontrast enhanced CT is recommended. <Mariana Blackman PA-C - Last Filed: 08/08/24 17:03> Critical Care Time Critical Care Time Critical Care Time: No <Mariana Blackman PA-C - Last Filed: 08/08/24 17:03> Discharge Plan Discharge Clinical Impression: Vaginal bleeding, COVID-19 Anemia Qualifiers: Anemia type: unspecified type Qualified Code(s): D64.9 - Anemia, unspecified <Mariana Blackman PA-C - Last Filed: 08/08/24 17:03> Patient Disposition: Home, Self-Care <Mariana Blackman PA-C - Last Filed: 08/08/24 17:03> Condition: Stable <MATT Coffman Last Filed: 08/08/24 17:03> Instructions: Antibiotic Form, Abnormal (Dysfunctional) Uterine Bleeding (ED), COVID-19 (Coronavirus Disease 2019) (ED) <MATT Coffman Last Filed: 08/08/24 17:03> Patient Language: Luxembourgish <MATT Coffman Last Filed: 08/08/24 17:03> Prescriptions: New Paxlovid 300 mg (150 mg x 2)-100 mg tablets,dose pack See Rx Instructions .ROUTE .COMPLEX Qty: 30 0RF Rx Instructions: take TWO 150 mg tablets of nirmatrelvir with ONE 100 mg tablet of ritonavir twice daily for 5 days No Action omeprazole 20 mg capsule,delayed release(DR/EC) 20 mg PO DAILY Zepbound 12.5 mg/0.5 mL pen injector 12.5 mg SUBCUT WEEKLY ferrous sulfate [Iron (ferrous sulfate)] 325 mg (65 mg iron) tablet 325 mg PO DAILY Qty: 30 0RF <Mariana Blackman PA-C - Last Filed: 08/08/24 17:03> Follow-up/Referrals: Juana,MD Michael [Primary Care Provider] - <Mariana Blackman PA-C - Last Filed: 08/08/24 17:03> Stand Alone Forms: Work/School Release IP <Mariana Blackman PA-C - Last Filed: 08/08/24 17:03> Time of Disposition: 22:22 <Mariana Blackman PA-C - Last Filed: 08/08/24 17:03> 22:22 <Ramakrishna Allen MD - Last Filed: 08/07/24 22:23>
--- NOTE | 2024-08-07 18:27 | ECG_ITS ---
Test Date: 2024-08-07 18:52:58 Measurements Intervals [place] Rate: 103 P: -6 KS: 163 QRS: 40 QRSD: 100 T: 72 QT: 314 QTc: 413 Interpretive Statements SINUS TACHYCARDIA SIGNIFICANT BASELINE ARTIFACT WHICH LIMITS INTERPRETATION Compared to ECG 07/11/2024 21:26:57 BASELINE ARTIFACT LIMITS INTERPRETATION Electronically Signed On 08-09-2024 17:14:37 AUTHORIZATION COORDINATOR by Joon Aguirre M.D.
[2024-08-07 18:34] VITALS: BP 130/56; PULSE 107; RESP 19; TEMP 37.7; O2SAT 100
[2024-08-07 19:08] LABS: Basophils Percent Auto 0.5 % (0.2-1.2); Eosinophils Absolute Auto 0.1 K/mm3 (0-0.3); Hematocrit 29.4 % (37.0-47.0); Hemoglobin 8.6 g/dL (12.0-15.0); Immature Granulocyte Absolute 0.02 K/mm3 (0.00-0.031); Immature Granulocyte Percent A 0.3 % (0-0.5); Lymphocytes Absolute Auto 0.84 K/mm3 (0.9-3.2); Lymphocytes Percent Auto 14.5 % (18.3-44.2); Mean Corpuscular HGB Conc 29.3 g/dl (32-36); Mean Corpuscular Hemoglobin 20.5 pg (26-34); Monocytes Absolute Auto 0.6 K/mm3 (0.1-0.6); Monocytes Percent Auto 10.2 % (2.6-8.5); Neutrophils Absolute Auto 4.2 K/mm3 (1.3-6.7); Neutrophils Percent Auto 73.5 % (45.5-73.1); Platelet Count Result 243 k/mm3 (150-375); Red Cell Distribution Width 22.6 % (11.5-14.5); White Blood Count 5.8 K/mm3 (4.5-10.0)
[2024-08-07 19:27] LABS: Alanine Aminotransferase 12 U/L (6-35); Albumin Level 3.8 g/dL (3.5-5.1); Alkaline Phosphatase 52 U/L (38-126); Anion Gap 3 mmol/L (4-12); Aspartate Amino Transferase 19 U/L (14-36); Bilirubin,Total 0.4 mg/dL (0.2-1.3); Blood Urea Nitrogen 9 mg/dL (7-17); Calcium 8.9 mg/dL (8.4-10.2); Carbon Dioxide 26 mmol/L (22-30); Chloride 105 mmol/L (98-107); Estimated CRCL calculation 75 ml/min; Estimated Glomerular Filt Rate > 60; Glucose 89 mg/dL (65-110); Potassium 4.1 mmol/L (3.4-5.0); Sodium 134 mmol/L (137-145)
[2024-08-07 19:44] LABS: Influenza A QL RT-PCR Negative (Negative); Influenza B QL RT-PCR Negative (Negative); RSV RNA, RT-PCR Negative (Negative); SARS-CoV-2 RNA PCR Positive (Negative)
[2024-08-07 19:47] LABS: Prothrombin Time 13.1 Seconds (11.1-14.7)
[2024-08-07 19:48] LABS: Partial Thromboplastin Time 29.8 Seconds (22.3-36.8)
[2024-08-07 19:49] LABS: Platelet Estimate Adequate (Adequate); Schistocytes None Seen
[2024-08-07 19:50] LABS: Anisocytosis 3+; Hypochromasia 1+
[2024-08-07 19:51] LABS: Microcytosis 1+ (NORMAL)
[2024-08-07 21:07] VITALS: BP 125/53; O2SAT 100
[2024-08-07 21:08] VITALS: BP 127/59; PULSE 84; RESP 19; TEMP 36.5; O2SAT 100
[2024-08-07 21:09] VITALS: BP 125/53; PULSE 105; RESP 14; TEMP 36.6; O2SAT 100
--- NOTE | 2024-08-07 22:17 | PC.NURSE ---
Pt was taken on a walk around department. pt O2 stat was 96%-99%. pt denies SOB
[2024-08-07 23:01] VITALS: BP 127/59; PULSE 99; RESP 19; TEMP 36.5; O2SAT 100
--- OUTSIDE RECORDS SUMMARY | 2024-08-14 05:30 | XMS_ITS | Clinical Summary ---
Author Organization [facility] Address [address] [place] [address] Phone Care Team Providers Care Central Office Repairer Supervisor Name Role Phone Provider, None Primary Care [...] Comments Blood Pressure 124/74 09/13/2020 5:21 PM EXPORT MANAGER Pulse 88 09/13/2020 5:21 PM EXPORT MANAGER Temperature 36.4 ??C (97.5 ??F) 09/13/2020 5:21 PM CS T Respiratory Rate 24 05/30/2018 9:37 AM CDT Oxygen Saturation 98% 09/13/2020 5:21 PM EXPORT MANAGER Inhaled Oxygen Concentration - - Weight 83.6 [...] Immunochemical Fecal Occult Blood 2022 Mammogram 2022 Pneumococcal Immunization (5 0+ years) (2 of 2 - PCV) 2022 05/30/2018 Zoster Immunization (1 of 2) 2022 Influenza Immunization (#1) 2024 05/13/2018 SARS-COV-2 Immunization (1 - season) 2024 Respiratory Syncytial Virus (RSV) Immunization (Adult) (1 - 1-dose 75+ series) 2047 Pneumococcal Immunization Combined Discontinued 2017 Meningococcal Immunization (ACWY) Aged Out No longer eligible based on patient's age to complete this topic Rotavirus Immunization Aged Out No lo nger eligible based on patient's age to complete this topic [place] [place] [address] Care Teams Central Office Repairer Supervisor Relationship Specialty Start Date End Date Provider, None [place] PCP - General 06/27/21
--- OUTSIDE RECORDS SUMMARY | 2024-08-14 05:30 | XMS_ITS | Encounter Summary ---
Author Organization [facility] Address [address] [place] [address]. [place], [place] [id number] [place] [id number] Care Team Providers Care Stone And Plate Preparer Apprentice Name Role Phone Michael Arias MD Primary Care Provider [phone] Encounter Details Date Type Department Care Team [...] on filedocumented in this encounter Care Teams Stone And Plate Preparer Apprentice Relationship Specialty Start Date End Date Michael Arias MD [address] [place] [id number] PCP - General FAMILY PRACTICE 03/11/24 documented as of this encounter
--- OUTSIDE RECORDS SUMMARY | 2024-08-14 05:30 | XMS_ITS | Clinical Summary ---
Author Organization [facility] Address [address] [place] [address]. [place] [address] [place] [address] Care Team Providers Care Clinical Informatics Manager Name Role Phone Michael Arias MD Primary Care Provider [phone] Allergies No known active allergies Medications ondansetron [...] FECAL NEGATIVE NEGATIVE 03/12/2024 1:22 AM CDT [facility] STOOL SPECIMEN / Unknown 03/12/2024 12:47 AM CDT us Rahul Langston MD BODY FLUIDS AND STOOLS ORD ERABLES Final Result [facility] [address] [place] [address], [place] [phone] from Last 3 Months or Most Recently Relevant to Health Maintenance Insurance MEDICAID MEDICAID Care Teams Clinical Informatics Manager Relationship Specialty Start Date End Date Michael Arias MD [address] [place] [id number] PCP - General FAMILY PRACTICE 03/11/24
--- OUTSIDE RECORDS SUMMARY | 2024-08-14 05:30 | XMS_ITS | Encounter Summary ---
Author Organization [facility] Address [address] [place] [address] Phone Care Team Providers Care Enrolled Nurse Name Role Phone Luna Trevino APRN, PRODUCT DEMONSTRATOR Primary Care P [email or web address] Reason for Visit * Reason Comments Dental Pain Encounter Details Date Type Department Care Team (Latest Contact Info) Description 09/13/2020 5:20 PM AUSTRALIAN RULES FOOTBALLER [facility]gent [facility] [place] [address] [place] [phone] Marga Mera APRN, PRODUCT DEMONSTRATOR [address] [place] [address] Dental abscess (Primary Dx) Discharge [...] COVID-19? No / Unsure 09/13/2020 5:17 PM AUSTRALIAN RULES FOOTBALLER documented as of this encounter Last Filed Vital Signs Vital Sign Reading Time Taken Comments Blood Pressure 124/74 09/13/2020 5:21 PM AUSTRALIAN RULES FOOTBALLER Pulse 88 09/13/2020 5:21 PM AUSTRALIAN RULES FOOTBALLER Temperature 36.4 ??C (97.5 ??F) 09/13/2020 5:21 PM CS T Respiratory Rate - - Oxygen Saturation 98% 09/13/2020 5:21 PM AUSTRALIAN RULES FOOTBALLER Inhaled Oxygen Concentration - - Weight - [...] The treatment provided mild relief. Today's ROS RALIAN RULES FOOTBALLER * Marga Mera APN, PRODUCT DEMONSTRATOR - 09/13/2020 5:20 PM CST Images from [...] discussed with patient/family and given to patient/family RALIAN RULES FOOTBALLER documented in this encounter Plan of Treatment Not on file documented as of this encounter Visit Diagnoses Diagnosis Dental abscess- Primary Periapical abscess without sinus documented in this encounter Additional Health Concerns Assessment Noted Time PHQ-9 Depression Total Score: 0 05/30/20 18 9:00 AM CDT documented as of this encounter Care Teams Enrolled Nurse Relationship Specialty Start Date End Date Luna Trevino APRN, ROBY [address] [place] [address] PCP - General Advanced Practice Nurse 05/30/1806/26 documented as of this encounter
--- OUTSIDE RECORDS SUMMARY | 2024-08-14 05:30 | XMS_ITS | Encounter Summary ---
Author Organization [facility] Address [address] [place] [address]. [place] [address] [place] [address] Care Team Providers Care City Manager Name Role Phone Michael Arias MD Primary Care Provider [phone] Reason for Referral * Imaging (Emergency) - New Request Specialty Diagnoses / Procedures Referred By Nate quiles Referred To Contact RADIOLOGY Procedures CT ABD+PEL W IV CON ONLY Rahul Lynn MD [address] [place] [address] Phone: tel: fax: Referral ID Status Reason Start Date Expiration Date V isits Requested Visits Authorized [id number] New Request 03/11/2024 03/11/2025 1 1 Reason for Visit * Reason Comments Abdominal Pain Encounter Details Date Type Department Care Team (Late st Contact Info) Description 03/11/2024 11:11 PM CDT - 03/12/2024 3:00 AM CDT Emergency [facility] Emergency Room [address] [place] [address] Rahul Lynn MD [address] [place] [address] Abdominal Pain Discharge Disposition: Home [...] for endoscopy or other testing. Contact your NURSE CLINICIAN to discuss the severity of your menstrual bleeding which may also be related to your large fibroid. Return to theER if you have worsening symptoms including shortness of breath, dizziness upon standing, increasing pain not improved by medication, or other concerning symptoms. * Attachments The following attachments cannot be sent through Care Everywhere. * Gastritis Discharge Instructions (Spanish) * Uterine Fibroids Discharge Instructions (Spanish) * Gastric Ulcer Discharge Instructions (Spanish) documented in this encounter Medications at Time [...] O POSITIVE ANTIBODY SCREEN NEGATIVE SAMPLE EXPIRATION 03/14/2024,7493 BLOOD UNIT NUMBER [id number] PRODUCT: PC LEUKOPOOR UNIT DIVISION 00 BLOOD UNIT STATUS ALLOCATED TRANSFUSION STATUS OK TO TRANSFUSE CROSSMATCH COMPATIBLE OCCULT BLOOD, FECES Result Value Ref Range OCCULT BLOOD FECAL NEGATIVE NEGATIVE IMAGING STUDIES CT ABD+PEL W IV CON ONLY Final Result by User, [id number] (03/12 12) INDICATION: Epigastric pain and right [...] I discussed theimportance of following up with NURSE CLINICIAN and reiterated that syncopal episodes due to [...] COLOR (U) YELLOW 03/12/2024 2:52 AM CDT [facility] TRANSPARENCY CLEAR 03/12/2024 2:52 AM CDT [facility] SPECIFIC GRAVITY (U) 1.020 1.000 - 1.030 03/12/2024 2:52 AM CDT [facility] U PH 6.0 5.0 - 9.0 03/12/2024 2:52 AM CDT [facility] LEUKOCYTES (U) NEGATIVE NEGATIVE 03/12/2024 2:52 AM CDT [facility] NITRITES NEGATIVE NEGATIVE 03/12/2024 2:52 AM CDT [facility] PROTEIN RANDOM (U) NEGATIVE NEGATIVE 03/12/2024 2:52 AM CDT [facility] GLUCOSE (U) NEGATIVE NEGATIVE 03/12/2024 2:52 AM CDT [facility] KETONES MG/DL (U) TRACE(A) NEGATIVE 03/12/2024 2:52 AM CDT [facility] BILIRUBIN (U) NEGATIVE NEGATIVE 03/12/2024 2:52 AM CDT [facility] BLOOD (U) NEGATIVE NEGATIVE 03/12/2024 2:52 AM CDT [facility] WBC/HPF NONE SEEN 0 - 5 /HPF 03/12/2024 2:52 AM CDT [facility] RBC/HPF NONE SEEN 0 - 5 /HPF 03/12/2024 2:52 AM CDT [facility] EPI/HPF MODERATE /HPF 03/12/2024 2:52 AM CDT [facility] URINE SPECIMEN OBTAINED BY CLEAN CATCH PROCEDURE / Unknown 03/12/2024 2:35 AM CDT us Rahul Lynn MD URINE ORDERABLES Final Res ult Performing Organization Address [facility]/ZIP Co de Phone Number [facility] [address] [place] [address], [place] [phone] * OCCULT BLOOD, FECES (03/12/2024 12:47 AM CDT) OCCULT BLOOD FECAL NEGATIVE NEGATIVE 03/12/2024 1:22 AM CDT [facility] STOOL SPECIMEN / Unknown 03/12/2024 12:47 AM CDT us Rahul Lynn MD BODY FLUIDS AND STOOLS ORD ERABLES Final Result Performing Organization Address [facility]/ZIP Co de Phone Number [facility] [address] [place] [address], [place] [phone] * ECG 12 lead (03/12/2024 12:18 AM CDT) 03/12/2024 12:1 8 AM CDT Narrative [facility]) RAD - 03/12/2024 1:33 PM CDT ?[facility] ? Test Date: ?2024-03-12 Pat Name: ? LANDEN TAWANNA ? Department: ?? 85 ? Room: ? EXAM 202 Gender: ? 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 Requested By: RAHUL RATHERT Order Number: [id number] ? Reading MD: ?? Ajron Scally ? Measurements Intervals ?[place] ? Rate: ? 76 ? P: ?46 CT: ? 160 ?QRS: ?22 QRSD: ? 86 ? T: ?27 QT: ? 369 ? QTc: ?416 ? Interpretive Statements SINUS RHYTHM No previous ECG available for comparison Procedure Note Jaron Mcbride MD - 03/12/2024 [facility] Test Date: 2024-03-12 Pat Name: LANDEN STACY Department: 85 Room: EXAM 202 Gender: F Math Teacher: : 1970 Requested By: RAHUL LYNN Order Number: [id number] Reading MD: Jaron Mcbride Measurements Intervals [place] Rate: 76 P: 46 CT: 160 QRS: 22 QRSD: 86 T: 27 QT: 369 QTc: 416 Interpretive Statements SINUS RHYTHM No previous ECG available for comparison us Rahul Lynn MD ECG ORDERABLES Final Resu lt [facility]) RAD * CT ABD+PEL W IV CON [...] ABO/RH O POSITIVE 03/11/2024 11:54 PM CDT [facility] ANTIBODY SCREEN NEGATIVE 12:05 AM CDT [facility] SAMPLE EXPIRATION 03/14/2024,235 9 03/11/2024 11:54 PM CDT [facility] BLOOD UNIT NUMBER [id number] 03/12/2024 12:05 AM CDT [facility] PRODUCT: PC LEUKOPOOR 03/12/2024 12:05 AM CDT [facility] UNIT DIVISION 00 03/12/2024 12:05 AM CDT [facility] BLOOD UNIT STATUS UNIT RELEASED 03/15/2024 1:06 AM CDT [facility] TRANSFUSION STATUS OK TO TRANSFUSE 03/12/2024 12:05 AM CDT [facility] CROSSMATCH COMPATIBLE 03/12/2024 12:05 AM CDT [facility] 03/11/2024 11:3 2 PM CDT us Rahul Lynn MD BLOOD BANK TEST ORDERABLES Final Result Performing Organization Address [facility] Co de Phone Number [facility] [address] [place] [address], * LIPASE (03/11/2024 11:19 PM CDT) LIPASE 72 16 - 77 UNITS/L 03/11/2024 11:40 PM CDT [facility] 03/11/2024 11:1 9 PM CDT us Rahul Lynn MD LABORATORY Final Resu lt Performing Organization Address City/[facility]/ZIP Co de Phone Number [facility] [address] [place] [id number], [place] [phone] * TROPONIN, QUANT (03/11/2024 11:19 PM CDT) [facility] TROPONIN I HIGH SENSITIVITY 4 0 - 50 ng/L 03/11/2024 11:43 PM CDT [facility] Comment: HIGH DOSES OF BIOTIN, TROPONIN-SPECIFIC AUTOANTIBODIES, AND ANTIBODY THERAPY CONTAINING HAMA MAY INTERFERE WITH THIS TEST RESULT. CORRELATION TO CLINICAL HISTORY AND PRESENTATION RECOMMENDED. 03/11/2024 11:1 9 PM CDT us Rahul Lynn MD LABORATORY Final Resu lt [facility] [address] [place] [address], [place] [phone] * (ABNORMAL) COMPREHENSIVE METABOLIC PANEL (03/11/2024 11:19 PM CDT) [facility] GLUCOSE 97 70 - 99 MG/DL 03/11/2024 11:40 PM CDT [facility] BUN 18 7 - 18 MG/DL 03/11/2024 11:40 PM CDT [facility] CREATININE S/P/B 0.62 0.55 - 1.02 MG/DL 03/11/2024 11:40 PM CDT [facility] SODIUM S/P/B 143 136 - 145 MMOL/L 03/11/2024 11:40 PM CDT [facility] POTASSIUM S/P/B 4.0 3.5 - 5.1 MMOL/L 03/11/2024 11:40 PM CDT [facility] CHLORIDE S/P/B 108 100 - 108 MMOL/L 03/11/2024 11:40 PM CDT [facility] CO2 22.8 21 - 32 MMOL/L 03/11/2024 11:40 PM CDT [facility] CALCIUM S/P/B 8.3(L) 8.5 - 10.1 MG/DL 03/11/2024 11:40 PM [facility] BILIRUBIN TOTAL S/P/B 0.2 0.2 - 1.2 MG/DL 03/11/2024 11:40 PM [facility] TOTAL PROTEIN S/P/B 5.9(L) 6.4 - 8.2 G/DL 03/11/2024 11:40 PM [facility] ALBUMIN S/P/B 3.3(L) 3.4 - 5.0 G/DL 03/11/2024 11:40 PM [facility] AST 12(L) 15 - 37 U/L 03/11/2024 11:40 PM [facility] ALT 16 14 - 55 U/L 03/11/2024 11:40 PM [facility] ALKALINE PHOSPHATASE S/P/B 55 50 - 136 U/L 03/11/2024 11:40 PM [facility] ANION GAP 12.2 5 - 15 MMOL/L 03/11/2024 11:40 PM [facility] BUN CREATININE RATIO 29.0(H) 6 - 26 03/11/2024 11:40 PM [facility] A/G RATIO 1.3 1.0 - 2.0 RATIO 03/11/2024 11:40 PM [facility] GFR ESTIMATE >90 >90 ML/MIN/1.7 3 M2 03/11/2024 11:40 PM [facility] Comment: NOTE: eGFR is not calculated for patients <18 years of age. This is an estimated GFR calculation using the new CKD EPI creatinine equation without race and so does not require a correction factor for race. This estimated GFR should not be used for calculating drug doses. 03/11/2024 11:1 9 PM CDT us Rahul Lynn MD LABORATORY Final Resu lt [facility] [address] [place] [address], [place] [phone] * (ABNORMAL) CBC W/DIFF AUTOMATED (03/11/2024 11:19 PM CDT) WBC 7.75 4.4 - 11.0 x10'3/uL 03/11/2024 11:26 PM CDT [facility] RBC 3.85(L) 4.50 - 5.10 x10'6/uL 03/11/2024 11:26 PM CDT [facility] HGB 7.3(L) 12.3 - 15.3 G/DL 03/11/2024 11:26 PM CDT [facility] HCT 26.0(L) 35.9 - 44.6 % 03/11/2024 11:26 PM CDT [facility] MCV 67.5(L) 80.0 - 96.0 FL 03/11/2024 11:26 PM CDT [facility] MCH 19.0(L) 25.3 - 30.9 PG 03/11/2024 11:26 PM CDT [facility] MCHC 28.1(L) 31.0 - 34.1 G/DL 03/11/2024 11:26 PM CDT [facility] RDW 18.2(H) 12.4 - 15.1 % 03/11/2024 11:26 PM CDT [facility] PLT 316 151 - 353 x10'3/uL 03/11/2024 11:26 PM CDT [facility] MPV 9.1(L) 9.6 - 12.0 FL 03/11/2024 11:26 PM CDT [facility] RBC MORPHOLOGY NORMAL 03/11/2024 11:26 PM CDT [facility] PLT MORPH. NORMAL 03/11/2024 11:26 PM CDT [facility] WBC MORPHOLOGY NORMAL 03/11/2024 11:26 PM CDT [facility] LYMPHOCYTES % 34.3 15.8 - 45.0 % 03/11/2024 11:26 PM CDT [facility] NEUTROPHILS % 54.5 42.1 - 71.9 % 03/11/2024 11:26 PM CDT [facility] MONOCYTES % 8.6 5.7 - 12.5 % 03/11/2024 11:26 PM CDT [facility] EOSINOPHILS 1.9 0.0 - 5.6 % 03/11/2024 11:26 PM CDT [facility] BASOPHILS 0.4 0.0 - 1.3 % 03/11/2024 11:26 PM CDT [facility] ABS. NEUTROPHILS 4.22 1.40 - 6.00 x10'3/uL 03/11/2024 11:26 PM CDT [facility] IMMATURE GRANS % 0.3 0.0 - 0.5 % 03/11/2024 11:26 PM CDT [facility] ABS. LYMPHOCYTES 2.66 0.80 - 4.70 x10'3/uL 03/11/2024 11:26 PM CDT [facility] 03/11/2024 11:1 9 PM CDT us Rahul Lynn MD LABORATORY Final Resu lt [facility] [address] [place] [address], documented in this encounter Visit Diagnoses Diagnosis [...] RTR) documented in this encounter Care Teams City Manager Relationship Specialty Start Date End Date Michael Arias MD [address] [place] [address] PCP - General FAMILY PRACTICE 03/11/24 documented as of this encounter
--- OUTSIDE RECORDS SUMMARY | 2024-08-14 05:30 | XMS_ITS | Encounter Summary ---
Author Organization [facility] Care Team Providers Care Purchase Order Checker Name Role Phone Luna Trevino APRN, CNP [...] COVID-19? No / Unsure 09/13/2020 5:17 PM TOLL LINE MECHANIC documented as of this encounter Plan of Treatment Not on file documented as of this encounter Visit Diagnoses Not on filedocumented in this encounter Additional Health Concerns Assessment Noted Time PHQ-9 Depression Total Score: 0 05/30/20 18 9:00 AM CDT documented as of this encounter Care Teams Purchase Order Checker Relationship Specialty Start Date End Date Luna Trevino APRN, CNP [address] [place] [address] PCP - General Advanced Practice Nurse 05/30/1806/26 documented as of this encounter
--- OUTSIDE RECORDS SUMMARY | 2024-08-14 06:52 | XMS_ITS | Clinical Summary ---
Author Organization [facility] Address [address] [place] [address]. [id number] Care Team Providers Care Black And White Printer Operator Name Role Phone Michael Arias MD Primary Care Provider [phone] Allergies No known active allergies Medications ondansetron [...] FLUIDS AND STOOLS ORD ERABLES Final Result [facility] [address] [place] [address], [place] [phone] from Last 3 Months or Most Recently Relevant to Health Maintenance Insurance MEDICAID MEDICAID Care Teams Black And White Printer Operator Relationship Specialty Start Date End Date Michael Arias MD [address] [place] [id number] PCP - General FAMILY PRACTICE 03/11/24
--- OUTSIDE RECORDS SUMMARY | 2024-08-14 06:52 | XMS_ITS | Clinical Summary ---
Author Organization [facility] Address [address] [place] [address] Phone Care Team Providers Care Tool Drawing Checker Name Role Phone Provider, None Primary Care [...] Comments Blood Pressure 124/74 09/13/2020 5:21 PM RETAIL KEY HOLDER Pulse 88 09/13/2020 5:21 PM RETAIL KEY HOLDER Temperature 36.4 ??C (97.5 ??F) 09/13/2020 5:21 PM CS T Respiratory Rate 24 05/30/2018 9:37 AM CDT Oxygen Saturation 98% 09/13/2020 5:21 PM RETAIL KEY HOLDER Inhaled Oxygen Concentration - - Weight 83.6 [...] patient's age to complete this topic Insurance [address] [address] Care Teams Tool Drawing Checker Relationship Specialty Start Date End Date Provider, None [place] PCP - General 06/27/21
--- OUTSIDE RECORDS SUMMARY | 2024-08-14 06:52 | XMS_ITS | Encounter Summary ---
Author Organization [facility] Address [address] [place] [address]. [place], [place] [address] [place] [address] Care Team Providers Care Signal Apprentice Name Role Phone Michael Arias MD Primary Care Provider [phone] Encounter Details Date Type Department Care Team [...] on filedocumented in this encounter Care Teams Signal Apprentice Relationship Specialty Start Date End Date Michael Arias MD [address] [place] [address] PCP - General FAMILY PRACTICE 03/11/24 documented as of this encounter
--- OUTSIDE RECORDS SUMMARY | 2024-08-14 06:52 | XMS_ITS | Encounter Summary ---
Author Organization [facility] Care Team Providers Care Ramp Manager Name Role Phone Luna Trevino APRN, CNP [...] COVID-19? No / Unsure 09/13/2020 5:17 PM FURRIER APPRENTICE documented as of this encounter Plan of Treatment Not on file documented as of this encounter Visit Diagnoses Not on filedocumented in this encounter Additional Health Concerns Assessment Noted Time PHQ-9 Depression Total Score: 0 05/30/20 18 9:00 AM CDT documented as of this encounter Care Teams Ramp Manager Relationship Specialty Start Date End Date Luna Trevino APRN, CNP [address] [place] [address] PCP - General Advanced Practice Nurse 05/30/1806/26 documented as of this encounter
--- OUTSIDE RECORDS SUMMARY | 2024-08-14 06:52 | XMS_ITS | Encounter Summary ---
Author Organization [facility] Address [address] [place] [address] Phone Care Team Providers Care Refractory Technician Name Role Phone Luna Trevino APRN, CLINICAL INFORMATICS DIRECTOR Primary Care P [email or web address] Reason for Visit * Reason Comments Dental Pain Encounter Details Date Type Department Care Team (Latest Contact Info) Description 09/13/2020 5:20 PM DIESEL TECHNOLOGY INSTRUCTOR [facility] [place] [address] [place] [phone] Marga Mera APRN, CLINICAL INFORMATICS DIRECTOR [address] [place] [address] Dental abscess (Primary Dx) Discharge [...] COVID-19? No / Unsure 09/13/2020 5:17 PM DIESEL TECHNOLOGY INSTRUCTOR documented as of this encounter Last Filed Vital Signs Vital Sign Reading Time Taken Comments Blood Pressure 124/74 09/13/2020 5:21 PM DIESEL TECHNOLOGY INSTRUCTOR Pulse 88 09/13/2020 5:21 PM DIESEL TECHNOLOGY INSTRUCTOR Temperature 36.4 ??C (97.5 ??F) 09/13/2020 5:21 PM CS T Respiratory Rate - - Oxygen Saturation 98% 09/13/2020 5:21 PM DIESEL TECHNOLOGY INSTRUCTOR Inhaled Oxygen Concentration - - Weight - - Height - - Body Mass Index - - documented in this encounter Progress Notes * Shayla Thomsa RMA - 09/13/2020 5:20 PM CST Elda Stacy complains of 2 days of right sided tooth pain that is possibly abscessed. Dental Pain This is a new problem. The current episode started in the past 7 days. The problem has been gradually worsening. The pain is moderate. She has tried NSAIDs and acetaminophen for the symptoms. The treatment provided mild relief. Today's ROS EL TECHNOLOGY INSTRUCTOR * Marga Mera APN, CLINICAL INFORMATICS DIRECTOR - 09/13/2020 5:20 PM CST Images from [...] discussed with patient/family and given to patient/family EL TECHNOLOGY INSTRUCTOR documented in this encounter Plan of Treatment Not on file documented as of this encounter Visit Diagnoses Diagnosis Dental abscess- Primary Periapical abscess without sinus documented in this encounter Additional Health Concerns Assessment Noted Time PHQ-9 Depression Total Score: 0 05/30/20 18 9:00 AM CDT documented as of this encounter Care Teams Refractory Technician Relationship Specialty Start Date End Date Luna Trevino APRN, ROBY [address] [place] [address] PCP - General Advanced Practice Nurse 05/30/1806/26 documented as of this encounter
--- OUTSIDE RECORDS SUMMARY | 2024-08-14 06:52 | XMS_ITS | Encounter Summary ---
Author Organization [facility] Address [address] [place] [address]. [place] [address] [place] [address] Care Team Providers Care Help Desk Internship Name Role Phone Michael Arias MD Primary Care Provider [phone] Reason for Referral * Imaging (Emergency) - New Request Specialty Diagnoses / Procedures Referred By Nate quiles Referred To Contact RADIOLOGY Procedures CT ABD+PEL W IV CON ONLY Rahul Lynn MD [address] [place] [address] Phone: tel: fax: Referral ID Status Reason Start Date Expiration Date V isits Requested Visits Authorized [id number] New Request 03/11/2024 03/11/2025 1 1 Reason for Visit * Reason Comments Abdominal Pain Encounter Details Date Type Department Care Team (Late st Contact Info) Description 03/11/2024 11:11 PM CDT - 03/12/2024 3:00 AM CDT Emergency [facility] Emergency Room [address] [place] [address] Rahul Lynn MD [address] [place] [address] Abdominal Pain Discharge Disposition: Home [...] for endoscopy or other testing. Contact your ASSOCIATE GENETICS PROFESSOR to discuss the severity of your menstrual bleeding which may also be related to your large fibroid. Return to theER if you have worsening symptoms including shortness of breath, dizziness upon standing, increasing pain not improved by medication, or other concerning symptoms. * Attachments The following attachments cannot be sent through Care Everywhere. * Gastritis Discharge Instructions (Portuguese) * Uterine Fibroids Discharge Instructions (Portuguese) * Gastric Ulcer Discharge Instructions (Portuguese) documented in this encounter Medications at Time [...] O POSITIVE ANTIBODY SCREEN NEGATIVE SAMPLE EXPIRATION 03/14/2024,9892 BLOOD UNIT NUMBER [id number] PRODUCT: PC LEUKOPOOR UNIT DIVISION 00 BLOOD UNIT STATUS ALLOCATED TRANSFUSION STATUS OK TO TRANSFUSE CROSSMATCH COMPATIBLE OCCULT BLOOD, FECES Result Value Ref Range OCCULT BLOOD FECAL NEGATIVE NEGATIVE IMAGING STUDIES CT ABD+PEL W IV CON ONLY Final Result by User, [id number] (03/12 12) INDICATION: Epigastric pain and right [...] I discussed theimportance of following up with ASSOCIATE GENETICS PROFESSOR and reiterated that syncopal episodes due to [...] COLOR (U) YELLOW 03/12/2024 2:52 AM CDT [facility] TRANSPARENCY CLEAR 03/12/2024 2:52 AM CDT [facility] SPECIFIC GRAVITY (U) 1.020 1.000 - 1.030 03/12/2024 2:52 AM CDT [facility] U PH 6.0 5.0 - 9.0 03/12/2024 2:52 AM CDT [facility] LEUKOCYTES (U) NEGATIVE NEGATIVE 03/12/2024 2:52 AM CDT [facility] NITRITES NEGATIVE NEGATIVE 03/12/2024 2:52 AM CDT [facility] PROTEIN RANDOM (U) NEGATIVE NEGATIVE 03/12/2024 2:52 AM CDT [facility] GLUCOSE (U) NEGATIVE NEGATIVE 03/12/2024 2:52 AM CDT [facility] KETONES MG/DL (U) TRACE(A) NEGATIVE 03/12/2024 2:52 AM CDT [facility] BILIRUBIN (U) NEGATIVE NEGATIVE 03/12/2024 2:52 AM CDT [facility] BLOOD (U) NEGATIVE NEGATIVE 03/12/2024 2:52 AM CDT [facility] WBC/HPF NONE SEEN 0 - 5 /HPF 03/12/2024 2:52 AM CDT [facility] RBC/HPF NONE SEEN 0 - 5 /HPF 03/12/2024 2:52 AM CDT [facility] EPI/HPF MODERATE /HPF 03/12/2024 2:52 AM CDT [facility] URINE SPECIMEN OBTAINED BY CLEAN CATCH PROCEDURE / Unknown 03/12/2024 2:35 AM CDT us Rahul Lynn MD URINE ORDERABLES Final Res ult Performing Organization Address [facility]/ZIP Co de Phone Number [facility] [address] [place] [address], [place] [phone] * OCCULT BLOOD, FECES (03/12/2024 12:47 AM CDT) OCCULT BLOOD FECAL NEGATIVE NEGATIVE 03/12/2024 1:22 AM CDT [facility] STOOL SPECIMEN / Unknown 03/12/2024 12:47 AM CDT us Rahul Lynn MD BODY FLUIDS AND STOOLS ORD ERABLES Final Result Performing Organization Address [facility]/ZIP Co de Phone Number [facility] [address] [place] [address], [place] [phone] * ECG 12 lead (03/12/2024 12:18 AM CDT) 03/12/2024 12:1 8 AM CDT Narrative [facility] ([facility]) RAD - 03/12/2024 1:33 PM CDT [facility] Test Date: ?2024-03-12 Pat Name: ? LANDEN TAWANNA ? Department: ?? 85 ? Room: ? EXAM 202 Gender: ? F ?Vulcanizer: ?? : ?1970 ? Requested By: RAHUL RATHERT Order Number: [id number] ? Reading MD: ?? Jaron Scally ? Measurements Intervals ?[place] ? Rate: ? 76 ? P: ?46 AL: ? 160 ?QRS: ?22 QRSD: ? 86 ? T: ?27 QT: ? 369 ? QTc: ?416 ? Interpretive Statements SINUS RHYTHM No previous ECG available for comparison Procedure Note Jaron Mcbride MD - 03/12/2024 [facility] Test Date: 2024-03-12 Pat Name: LANDEN STACY Department: 85 Room: EXAM 202 Gender: F Vulcanizer: : 1970 Requested By: RAHUL LYNN Order Number: [id number] Reading MD: Jaron Mcbride Measurements Intervals [place] Rate: 76 P: 46 AL: 160 QRS: 22 QRSD: 86 T: 27 QT: 369 QTc: 416 Interpretive Statements SINUS RHYTHM No previous ECG available for comparison us Rahul Lynn MD ECG ORDERABLES Final Resu lt [facility] ([facility] RAD * CT ABD+PEL W IV CON [...] ABO/RH O POSITIVE 03/11/2024 11:54 PM CDT [facility] ANTIBODY SCREEN NEGATIVE 12:05 AM CDT [facility] SAMPLE EXPIRATION 03/14/2024,235 9 03/11/2024 11:54 PM CDT [facility] BLOOD UNIT NUMBER [id number] 03/12/2024 12:05 AM CDT [facility] PRODUCT: PC LEUKOPOOR 03/12/2024 12:05 AM CDT [facility] UNIT DIVISION 00 03/12/2024 12:05 AM CDT [facility] BLOOD UNIT STATUS UNIT RELEASED 03/15/2024 1:06 AM CDT [facility] TRANSFUSION STATUS OK TO TRANSFUSE 03/12/2024 12:05 AM CDT [facility] CROSSMATCH COMPATIBLE 03/12/2024 12:05 AM CDT [facility] 03/11/2024 11:3 2 PM CDT us Rahul Lynn MD BLOOD BANK TEST ORDERABLES Final Result Performing Organization Address [facility] Co de Phone Number [facility] [address] [place] [address], * LIPASE (03/11/2024 11:19 PM CDT) LIPASE 72 16 - 77 UNITS/L 03/11/2024 11:40 PM CDT [facility] 03/11/2024 11:1 9 PM CDT us Rahul Lynn MD LABORATORY Final Resu lt Performing Organization Address City/[facility]/ZIP Co de Phone Number [facility] [address] [place] [id number], [place] [phone] * TROPONIN, QUANT (03/11/2024 11:19 PM CDT) [facility] TROPONIN I HIGH SENSITIVITY 4 0 - 50 ng/L 03/11/2024 11:43 PM CDT [facility] Comment: HIGH DOSES OF BIOTIN, TROPONIN-SPECIFIC AUTOANTIBODIES, AND ANTIBODY THERAPY CONTAINING HAMA MAY INTERFERE WITH THIS TEST RESULT. CORRELATION TO CLINICAL HISTORY AND PRESENTATION RECOMMENDED. 03/11/2024 11:1 9 PM CDT us Rahul Lynn MD LABORATORY Final Resu lt [facility] [address] [place] [address], [place] [phone] * (ABNORMAL) COMPREHENSIVE METABOLIC PANEL (03/11/2024 11:19 PM CDT) [facility] GLUCOSE 97 70 - 99 MG/DL 03/11/2024 11:40 PM CDT [facility] BUN 18 7 - 18 MG/DL 03/11/2024 11:40 PM CDT [facility] CREATININE S/P/B 0.62 0.55 - 1.02 MG/DL 03/11/2024 11:40 PM CDT [facility] SODIUM S/P/B 143 136 - 145 MMOL/L 03/11/2024 11:40 PM CDT [facility] POTASSIUM S/P/B 4.0 3.5 - 5.1 MMOL/L 03/11/2024 11:40 PM CDT [facility] CHLORIDE S/P/B 108 100 - 108 MMOL/L 03/11/2024 11:40 PM CDT [facility] CO2 22.8 21 - 32 MMOL/L 03/11/2024 11:40 PM CDT [facility] CALCIUM S/P/B 8.3(L) 8.5 - 10.1 MG/DL 03/11/2024 11:40 PM [facility] BILIRUBIN TOTAL S/P/B 0.2 0.2 - 1.2 MG/DL 03/11/2024 11:40 PM [facility] TOTAL PROTEIN S/P/B 5.9(L) 6.4 - 8.2 G/DL 03/11/2024 11:40 PM [facility] ALBUMIN S/P/B 3.3(L) 3.4 - 5.0 G/DL 03/11/2024 11:40 PM [facility] AST 12(L) 15 - 37 U/L 03/11/2024 11:40 PM [facility] ALT 16 14 - 55 U/L 03/11/2024 11:40 PM [facility] ALKALINE PHOSPHATASE S/P/B 55 50 - 136 U/L 03/11/2024 11:40 PM [facility] ANION GAP 12.2 5 - 15 MMOL/L 03/11/2024 11:40 PM [facility] BUN CREATININE RATIO 29.0(H) 6 - 26 03/11/2024 11:40 PM [facility] A/G RATIO 1.3 1.0 - 2.0 RATIO 03/11/2024 11:40 PM [facility] GFR ESTIMATE >90 >90 ML/MIN/1.7 3 M2 03/11/2024 11:40 PM [facility] Comment: NOTE: eGFR is [...] Rahul Lynn MD LABORATORY Final Resu lt [facility] [address] [place] [address], [place] [phone] * (ABNORMAL) CBC W/DIFF AUTOMATED (03/11/2024 11:19 PM CDT) WBC 7.75 4.4 - 11.0 x10'3/uL 03/11/2024 11:26 PM CDT [facility] RBC 3.85(L) 4.50 - 5.10 x10'6/uL 03/11/2024 11:26 PM CDT [facility] HGB 7.3(L) 12.3 - 15.3 G/DL 03/11/2024 11:26 PM CDT [facility] HCT 26.0(L) 35.9 - 44.6 % 03/11/2024 11:26 PM CDT [facility] MCV 67.5(L) 80.0 - 96.0 FL 03/11/2024 11:26 PM CDT [facility] MCH 19.0(L) 25.3 - 30.9 PG 03/11/2024 11:26 PM CDT [facility] MCHC 28.1(L) 31.0 - 34.1 G/DL 03/11/2024 11:26 PM CDT [facility] RDW 18.2(H) 12.4 - 15.1 % 03/11/2024 11:26 PM CDT [facility] PLT 316 151 - 353 x10'3/uL 03/11/2024 11:26 PM CDT [facility] MPV 9.1(L) 9.6 - 12.0 FL 03/11/2024 11:26 PM CDT [facility] RBC MORPHOLOGY NORMAL 03/11/2024 11:26 PM CDT [facility] PLT MORPH. NORMAL 03/11/2024 11:26 PM CDT [facility] WBC MORPHOLOGY NORMAL 03/11/2024 11:26 PM CDT [facility] LYMPHOCYTES % 34.3 15.8 - 45.0 % 03/11/2024 11:26 PM CDT [facility] NEUTROPHILS % 54.5 42.1 - 71.9 % 03/11/2024 11:26 PM CDT [facility] MONOCYTES % 8.6 5.7 - 12.5 % 03/11/2024 11:26 PM CDT [facility] EOSINOPHILS 1.9 0.0 - 5.6 % 03/11/2024 11:26 PM CDT [facility] BASOPHILS 0.4 0.0 - 1.3 % 03/11/2024 11:26 PM CDT [facility] ABS. NEUTROPHILS 4.22 1.40 - 6.00 x10'3/uL 03/11/2024 11:26 PM CDT [facility] IMMATURE GRANS % 0.3 0.0 - 0.5 % 03/11/2024 11:26 PM CDT [facility] ABS. LYMPHOCYTES 2.66 0.80 - 4.70 x10'3/uL 03/11/2024 11:26 PM CDT [facility] 03/11/2024 11:1 9 PM CDT us Rahul Lynn MD LABORATORY Final Resu lt [facility] [address] [place] [address], documented in this encounter Visit Diagnoses Diagnosis [...] RTR) documented in this encounter Care Teams Help Desk Internship Relationship Specialty Start Date End Date Michael Arias MD [address] [place] [address] PCP - General FAMILY PRACTICE 03/11/24 documented as of this encounter
== END 2024-08-07 23:03 | disposition home or self-care (01) ==
PROVIDERS: Physician Assistant; Emergency Provider Emergency Medicine; PCP Family Medicine
DX: U07.1 COVID-19 (principal); N93.9 Abnormal uterine and vaginal bleeding, unspecified; D64.9 Anemia, unspecified; E28.2 Polycystic ovarian syndrome; Z87.891 Personal history of nicotine dependence; R91.1 Solitary pulmonary nodule; Z79.85 Long-term (current) use of injectable non-insulin antidiabetic drugs; R00.0 Tachycardia, unspecified
CPT/HCPCS: 36415; 71046; 80053; 85025; 85610; 85730; 86850; 86900; 86901; 87637; 93005; 99283

== ENCOUNTER 2024-12-11 00:33 | Day surgery (SDC) | payer OTHER, SELFPAY ==
[2024-12-08 11:06] VITALS: BMI 22.1
--- NOTE | 2024-12-08 11:14 | PC.NURSE ---
Report to the Outpatient Waiting Room, entrance under the green pavilion located off [facility], at time _0600_ on date _[id number]_. Planned Procedure Time: _0730_.? Time changes happen often and if your time is changed the preop area will call you the afternoon before. - You and your visitor will be asked to self-screen and do not enter if you have any COVID symptoms. Please call surgeon if you need to reschedule. - A mask is optional within the hospital at this time. Patients may have clear liquids (water, carbonated beverages, clear teas, apple juice) until 3 hours prior to surgery with a maximum of 20 ounces. - No food from midnight until time of surgery and no smoking, or chewing tobacco (or any form of nicotine). No chewing gum, candy or mints. Take only the following medications with a SIP of water on the morning of surgery: __None___ DO NOT STOP ANY OF YOUR OTHER PRESCRIPTION MEDICATIONS PRIOR TO SURGERY EXCEPT THE FOLLOWING Hold all vitamins and supplements for 3 days per anesthesiologist. Medications to discontinue per physician Skip todays dose of Zepbound Date to take last dose Please no make-up, nail turkmen, hairspray, perfume, deodorant, or body powder the day of surgery.? No jewelry (including any body piercings) or valuables the day of surgery, leave them at home.? Please take a shower or bath the night before, or the morning of, surgery with an antibacterial soap.? Wear comfortable, loose fitting clothing.? - Jewelry must be removed prior to entering the operating room.? Rings and piercings that are not removed may be cut off. - The hospital will not accept responsibility for valuables.? - Please leave all valuables, including medications, at home the day of surgery. If you are going home after surgery, a licensed dedicated truck driver must drive you home.? - NO public transportation without another adult if you receive anesthesia. - We recommend that an adult stay with you for 24 hours following discharge. - We also recommend that you do not drive, make important decision, drink alcoholic beverages, or take any drugs that were not prescribed by your health care provider for at least 24 hours after your discharge time. Follow any additional instructions given to you from your surgeon. Telephone instructions given to __Khalif__and asked if any additional questions and then verbalized understanding. Patient advised to call surgeon office or pre surgery nurse liaison [phone] if any additional questions.
--- OUTSIDE RECORDS SUMMARY | 2024-12-11 00:36 | XMS_ITS | Clinical Summary ---
Author Organization [facility] Address [facility] [place] [address] Care Team Providers Care Inspector Wreath Name Role Phone Michael Arias MD Primary Care Provider [phone] Allergies No known active allergies Medications ondansetron (ZOFRAN-ODT) 4 MG disintegrating tablet Take 1 tablet (4 mg total) by mouth every 8 (eight) hours as needed for Nausea. 20 tablet Active sucralfate (CARAFATE) 1 G tablet Take [...] 84 03/12/2024 3:00 AM CDT Temperature 36.6 C (97.8 F) 03/12/2024 3:00 AM CDT Respiratory Rate 18 03/12/2024 3:00 AM CDT [...] wi th HPV 2002 Mammogram Screening 2012 Pneumococcal Vaccine: 50+ Years (2 of 2 - PCV) 2022 05/30/2018 Zoster Vaccines (1 of 2) 2022 COVID-19 Vaccine (3 - 2023-2 5 season) 2024 03/23/2021, 02/18/2021 Colorectal Cancer Screening FIT/FOBT (1 Year) 03/12/2025 03/12/2024 Meningococcal B Vaccine Aged Out No l onger eligible based on patient's age to complete [...] FECAL NEGATIVE NEGATIVE 03/12/2024 1:22 AM CDT [facility] STOOL SPECIMEN / Unknown 03/12/2024 12:47 AM CDT Rahul Langston MD BODY FLUIDS AND STOOLS ORD ERABLES Final Result [facility] ([facility] [address] [facility] [address], from Last 3 Months or Most Recently Relevant to Health Maintenance Insurance MEDICAID MEDICAID Care Teams Inspector Wreath Relationship Specialty Start Date End Date Michael Arias MD [address] [place] [id number] PCP - General FAMILY PRACTICE 03/11/24
--- OUTSIDE RECORDS SUMMARY | 2024-12-11 00:36 | XMS_ITS | Clinical Summary ---
Author Organization [facility] Address [address] [facility] [address] Care Team Providers Care Firer Marine Name Role Phone Michael Arias MD Primary Care Provider [phone] Allergies No known active allergies Medications HYDROcodone-acet aminophen (NORCO) 5-325 mg per tabletIndication s:Pain Take 1 tablet by mouth every 6 (six) hours as needed for pain for up to 10 doses 10 tablet 08/24/[address] (PROTONIX) 40 mg EC tablet Take 1 tablet (40 mg total) by mouth daily 30 tablet 08/24/2024 Active Social History Tobacco Use Types Packs/Day Years Used Date Smoking Tobacco: Never Assessed Personal Safety Answer Date Recorded Have you ever been in or are you currently in a harmful physical or emotional relationship or is someone making you feel afraid or unsafe? Denies 08/24/2024 Comments Unknown Sex and Gender Information Value Date Recorded Sex Assigned at Not on file Legal Sex Female 7:48 PM COPPER TAPPER Gender Identity Not on file Sexual Orientation Not on file Last Filed Vital Signs Vital Sign Reading Time Taken Comments Blood Pressure 124/76 08/24/2024 11:55 AM COPPER TAPPER Pulse 76 08/24/2024 11:55 AM COPPER TAPPER Temperature 36.4 C (97.5 F) 08/24/2024 4:26 AM COPPER TAPPER Respiratory Rate 16 08/24/2024 11:55 AM COPPER TAPPER Oxygen Saturation 100% 08/24/2024 11:55 AM COPPER TAPPER Inhaled Oxygen Concentration - - Weight 59 kg (130 lb) 08/24/2024 4:26 AM COPPER TAPPER Height - - Body Mass Index - - Plan of Treatment Health Maintenance Due Date Last Done Comments Breast Cancer Screening-Mammogram 1972 Cervical Cancer Screening 1972 Colon Cancer Screening-Colonoscopy 1972 Depression Screening 1972 Hepatitis C Screening 1972 DTaP/Tdap/Td Vaccine (1 - Tdap) 1983 Hepatitis B Screening 1990 Regular Well Visit/Exam 18-64 1990 Zoster Vaccine (1 of 2) 2022 Influenza Vaccine (#1) 2024 05/13/2018 Pneumococcal vaccine <65 Aged Out 05/30/2018 No longer eligible based on patient's age to complete this topic Insurance [facility] CHOICE PLUS [facility] HMO/PPO Address: [facility] [id number] [place] [address] Care Teams Firer Marine Relationship Specialty Start Date End Date Michael Arias MD [address] [place] [id number] PCP - General Family Medicine 08/24/24
--- OUTSIDE RECORDS SUMMARY | 2024-12-11 00:36 | XMS_ITS | Referral Summary ---
Author Organization [facility] Address [address] [place] [address] Care Team Providers Care Computer Programmer Name Role Phone Michael Arias MD Primary Care Provider [phone] Allergies No known active allergies Medications HYDROcodone-acet [...] on file Legal Sex Female 7:48 PM COMMISSIONER [employer]ATION [employer]OURCES Gender Identity Not on file Sexual Orientation Not on file Last Filed Vital Signs Vital Sign Reading Time Taken Comments Blood Pressure 124/76 08/24/2024 11:55 AM COMMISSIONER [employer]OURCES Pulse 76 08/24/2024 11:55 AM COMMISSIONER [employer]ATION OF RESOURCES Temperature 36.4 C (97.5 F) 08/24/2024 4:26 AM COMMISSIONER CONSERVATION OF RESOURCES Respiratory Rate 16 08/24/2024 11:55 AM COMMISSIONER CONSERVATION OF RESOURCES Oxygen Saturation 100% 08/24/2024 11:55 AM COMMISSIONER CONSERVATION OF RESOURCES Inhaled Oxygen Concentration - - Weight 59 kg (130 lb) 08/24/2024 4:26 AM COMMISSIONER [employer]ATION [employer] RESOURCES Height - - Body Mass Index - - Plan of Treatment Not on file Insurance [facility] CHOICE PLUS Care Teams Computer Programmer Relationship Specialty Start Date End Date Michael Arias MD [address] [place] [id number] PCP - General Family Medicine 08/24/24
--- OUTSIDE RECORDS SUMMARY | 2024-12-11 00:36 | XMS_ITS | Clinical Summary ---
Author Organization [facility] Address [address] [place] [address] Phone Care Team Providers Care Zipper Lining Folder Name Role Phone Provider, None Primary Care [...] Comments Blood Pressure 124/74 09/13/2020 5:21 PM FOOD OR BAGGAGE HANDLING RAMPMAN Pulse 88 09/13/2020 5:21 PM FOOD OR BAGGAGE HANDLING RAMPMAN Temperature 36.4 C (97.5 F) 09/13/2020 5:21 PM FOOD OR BAGGAGE HANDLING RAMPMAN Respiratory Rate 24 05/30/2018 9:37 AM CDT Oxygen Saturation 98% 09/13/2020 5:21 PM FOOD OR BAGGAGE HANDLING RAMPMAN Inhaled Oxygen Concentration - - Weight 83.6 [...] of 3 - 19+ 3-dose series) 1991 Colonoscopy 2017 Colorectal Cancer Screening 2017 Cologuard 2022 Immunochemical Fecal Occult Blood 2022 Pneumococcal Immunization (5 0+ years) (2 of 2 - PCV) 2022 05/30/2018 Zoster Immunization (1 of 2) 2022 Influenza Immunization (#1) 2024 05/13/2018 SARS-COV-2 Immunization ( - 2023- season) 2024 Respiratory Syncytial Virus (RSV) Immunization (Adult) (1 - 1-dose 75+ series) 2047 Pneumococcal Immunization Combined Discontinued 2017 Meningococcal Immunization (ACWY) Aged Out No longer eligible based on patient's age to complete this topic Rotavirus Immunization Aged Out No lo nger eligible based on patient's age to complete this topic Insurance Care Teams Zipper Lining Folder Relationship Specialty Start Date End Date Provider, None [place] PCP - General 11/26/21
[2024-12-11 06:00] VITALS: BP 109/59; PULSE 77; RESP 16; TEMP 36.6; O2SAT 100
[2024-12-11 06:30] VITALS: BMI 23.7
[2024-12-11] MEDS: LACTATED RINGERS 1,000 ML 30 ML IV CONT (06:30)
[2024-12-11] MEDS: ACETAMINOPHEN 500 MG TABLET 1000 MG PO (06:36)
[2024-12-11 06:37] LABS: Hematocrit 27.8 % (37.0-47.0); Hemoglobin 7.6 g/dL (12.0-15.0)
--- NOTE | 2024-12-11 06:40 | WPDANESEPPF ---
Anes - Initial Pre Proc Eval Procedure: Operation Date: 12/11/24 07:30 Proposed Procedures p Hysteroscopy Dilation and Curettage with Zuleyma Endometrial Ablation - Imani Newton MD Date/Time: 12/11/24 06:40 Surgeon: Imani Newton MD Pre Op Diagnosis: menorrhagia Patient Data Age: 54 Gender: F Height: 1.55 m Weight: 53.1 kg Allergies Allergy/AdvReac Type Severity Reaction Status Date / Time No Known Allergies Allergy Verified 12/08/24 11:03 Home Medications ?Medication ?Instructions ?Recorded ?Confirmed ?Type omeprazole 20 mg capsule,delayed 20 mg PO DAILY 07/10/24 12/08/24 History release tirzepatide (weight loss) 12.5 12.5 mg subcut WEEKLY 07/10/24 12/08/24 History mg/0.5 mL subcutaneous pen injector (Zepbound) ferrous sulfate 325 mg (65 mg 325 mg PO DAILY #30 tabs 07/12/24 12/08/24 Rx iron) tablet (Iron (ferrous sulfate)) cholecalciferol (vitamin D3) 125 5,000 unit PO DAILY 12/08/24 12/08/24 History mcg (5,000 unit) tablet (Vitamin D3) Laboratory Tests 12/11/24 06:32 Hgb Pending Hct Pending Patient hx anesthesia problems: none Family hx anesthesia problems: none Results Review: All pre-operative results and documents have been reviewed as part of the pre-operative evaluation. [facility] Past Medical History Medical History PCOS (polycystic ovarian syndrome) (normal spontaneous vaginal delivery) x2 History of uterine fibroid Surgical History Surgical History Status post tubal ligation Social History Social History Smoking packs per day: 0.5 Smoking cigarettes per day: 10.0 Years smoked: 15 Smoking pack-years: 7.50 Smoking status: Former smoker Tobacco type: cigarettes Smoking end date: 12/08/18 Alcohol intake: current Substance use: never Substance use type: does not use Living arrangements: with family Spiritual care concerns: No Anes - Eval Final PreProcedure Day of Procedure 12/11/24 06:40 Patient weight: normal Heart: regular rate and rhythm Lungs: clear to auscultation Airway: Mallampati scale class II Neurological: alert and oriented Last oral intake: >/= 8 hours ASA classification: II Emergent: no Anesthetic plan: proceed Anesthesia type and monitoring: general GIVS and standard monitoring Results Review: All pre-operative results and documents have been reviewed as part of the pre-operative evaluation. Informed Consent: The patient's anesthetic plan and its attendant risks and benefits were discussed with the patient/family/POA. Questions were solicited and answers provided to the satisfaction of the patient/family/POA.
[2024-12-11 07:18] LABS: BEDSIDEPREGUCG Negative (Negative)
--- NOTE | 2024-12-11 07:23 | WPDHPUPDATE1 ---
History and Physical Update Update Date/Time: 12/11/24 07:23 History and Physical has been reviewed, including an updated exam of the patient. There are NO changes in the patient's condition. Risks, benefits, and alternatives have been discussed and questions answered. Patient agrees to proceed with procedure.
--- NOTE | 2024-12-11 07:23 | PM.HPGS ---
History of Present Illness History of Present Illness Consent: Risks, benefits, and alternatives have been discussed and questions answered. Patient agrees to proceed with procedure. Chief complaint: menorrhagia Narrative: Olena Stacy is a 54 year old female with menorrhagia and severe anemia requiring transfusion. D&C hysteroscopy with myomectomy was performed in July of 2024. Cycles slightly improved but continued to remain heavy. Patient had to return to the ER and hemoglobin on August 08, 2024 was 8.9. It was recommended to undergo treatment or take medication for heavy bleeding. Patient agreed to proceed with a Zuleyma endometrial ablation. Patient did cancel her surgery in September due to work situation and has rescheduled for today. Plan is to proceed with Zuleyma endometrial ablation. Risks of infection, bleeding, perforation, and device failure are reviewed. Success rates of the ablation are reviewed. Patient voices understanding and agrees to proceed. Review of Systems Review of Systems: not repeated day of surgery; patient states no changes in status PMFSH Past Medical History Medical History PCOS (polycystic ovarian syndrome) (normal spontaneous vaginal delivery) x2 History of uterine fibroid Surgical History Surgical History (Updated 12/11/24 @ 07:25 by Imani Newton MD) Status post hysteroscopic myomectomy Status post tubal ligation Social History Social History Smoking packs per day: 0.5 Smoking cigarettes per day: 10.0 Years smoked: 15 Smoking pack-years: 7.50 Smoking status: Former smoker Tobacco type: cigarettes Smoking end date: 12/08/18 Alcohol intake: current Substance use: never Substance use type: does not use Living arrangements: with family Spiritual care concerns: No Meds Home Medications and Allergies Home Medications ?Medication ?Instructions ?Recorded ?Confirmed ?Type omeprazole 20 mg capsule,delayed 20 mg PO DAILY 07/10/24 12/11/24 History release tirzepatide (weight loss) 12.5 12.5 mg subcut WEEKLY 07/10/24 12/08/24 History mg/0.5 mL subcutaneous pen injector (Zepbound) ferrous sulfate 325 mg (65 mg 325 mg PO DAILY #30 tabs 07/12/24 12/11/24 Rx iron) tablet (Iron (ferrous sulfate)) cholecalciferol (vitamin D3) 125 5,000 unit PO DAILY 12/08/24 12/11/24 History mcg (5,000 unit) tablet (Vitamin D3) Allergies Allergy/AdvReac Type Severity Reaction Status Date / Time No Known Allergies Allergy Verified 12/11/24 07:14 Exam Const: General: healthy appearing and alert Orientation/consciousness: patient oriented x3 Resp: Effort & Inspection: normal respiratory effort : External Female Exam: normal external appearance Speculum Exam - Vagina: normal appearance of the vagina and normal vaginal discharge Speculum Exam - Cervix: normal appearance of the cervix Bimanual exam- vagina & uterus: uterine size normal and consistency normal Bimanual Exam- Adnexa, other: normal adnexae and No adnexal tenderness Neuro: General: patient oriented x3 Assessment and Plan Assessment and plan (1) Menorrhagia: Code(s): N92.0 - Excessive and frequent menstruation with regular cycle Status: Acute Assessment and Plan: Plan to proceed with Zuleyma endometrial ablation (2) Anemia: Qualifiers: Anemia type: unspecified type Qualified Code(s): D64.9 - Anemia, unspecified Code(s): D64.9 - Anemia, unspecified Status: Acute
[2024-12-11] MEDS: LIDOCAINE 1% LOCAL INJ 10 ML VIAL INFILTRATE (07:30)
[2024-12-11 08:12] VITALS: BP 122/69; PULSE 76; RESP 15; O2SAT 100
--- NOTE | 2024-12-11 08:12 | P.OP_ITS ---
Procedure Note - Detailed Date of Procedure 12/11/24 Pre-op Diagnosis menorrhagia Post-op Diagnosis Same Procedure Performed D&C hysteroscopy with myomectomy Failed endometrial ablation Surgeon Imani Newton MD Anesthesia MAC and Local Findings The cervix is very stenotic. The uterus sounds to 11 cm. There was a fibroid noted on the anterior wall approximately midline. The remainder of the endometrium appears grossly normal. Description of Procedure The patient is taken to the operating room and placed under anesthesia in the dorsal lithotomy position. She was prepped and draped in the usual sterile fashion. Hankinson speculum was placed in the vagina and cervix grasped on the anterior lip with a tenaculum. Cervix was injected in each quadrant with 1% lidocaine. The uterus was attempted to be sounded but internal cervical stenosis is encountered. The Hegar dilators were unable to pass per os Finders are used and the cavity was able to be entered. The cervix was serially dilated with difficulty with using Hegar was to a 5. The hysteroscope was then able to be entered into the cavity. A sessile fibroid is noted the anterior midline at the fundus. The Aveta resection device is placed and the fibroid shaved down to smooth with the endometrium. The fibroid continued to push into the endometrium. Additional fibroid was then shaved to smoothed with the endometrium. No further pushing into the endometrium was noted. The hyst eroscope is removed. The cervix is serially dilated to an 8 Hegar. The Zuleyma device is opened and placed. The CO2 indicator did not move off of the far right red. Manipulation of the device and additional air in the balloon did not change the CO2 indicator. A the Zuleyma device is removed and the hysteroscope was replaced. No visible perforation is noted. There is space noted around the fibroid. The fibroid is not pushing into the cavity. A 2nd Zuleyma device is opened and placed and the CO2 indicator again did not move from the far right red despite troubleshooting. Decision was made to cease the ablation attempt. It is suspected that the fibroid possibly through and through the endometrium to the serosa and there was a small defect around the fibroid. All instruments are removed. Sponge, needle, and instrument counts are correct per the OR staff. Fluid deficit is 160cc. Patient was awakened from anesthesia and taken to recovery in stable condition. Estimated Blood Loss 5 Drains No Packing No Pathology Yes (Endometrial shavings) Complications Other complications (Inability to perform Zuleyma ablation) Condition Stable Disposition PACU
[2024-12-11 08:30] VITALS: BP 141/87; PULSE 65; RESP 16
[2024-12-11 09:00] VITALS: BP 148/81; PULSE 62; RESP 15
== END 2024-12-11 09:10 | disposition home or self-care (01) ==
PROVIDERS: PCP Family Medicine; Visit Provider Obstetrics & Gynecology Gynecology
PROC: 0U5B8ZZ Destruction of Endometrium, Via Natural or Artificial Opening Endoscopic (ICD-10-PCS; CPT 58563; principal; 2024-12-11 07:30)
DX: N92.0 Excessive and frequent menstruation with regular cycle (principal); D25.9 Leiomyoma of uterus, unspecified; D64.9 Anemia, unspecified; Z87.891 Personal history of nicotine dependence
CPT/HCPCS: 58563; 36415; 85014; 85018; 88305; A9270; J2003; J2250; J2704; J3010; J7120

== ENCOUNTER 2024-12-18 16:44 | Outpatient (CLI) | payer OTHER, SELFPAY ==
--- OUTSIDE RECORDS SUMMARY | 2024-12-18 16:48 | XMS_ITS | Clinical Summary ---
Author Organization [facility] Address [address] [place] [address] Phone Care Team Providers Care Hotel Receptionist Name Role Phone Provider, None Primary Care [...] Comments Blood Pressure 124/74 09/13/2020 5:21 PM WORKERS' COMPENSATION COMMISSIONER Pulse 88 09/13/2020 5:21 PM WORKERS' COMPENSATION COMMISSIONER Temperature 36.4 C (97.5 F) 09/13/2020 5:21 PM WORKERS' COMPENSATION COMMISSIONER Respiratory Rate 24 05/30/2018 9:37 AM CDT Oxygen Saturation 98% 09/13/2020 5:21 PM WORKERS' COMPENSATION COMMISSIONER Inhaled Oxygen Concentration - - Weight 83.6 [...] to complete this topic Insurance Care Teams Hotel Receptionist Relationship Specialty Start Date End Date Provider, None [place] PCP - General 11/26/21
--- OUTSIDE RECORDS SUMMARY | 2024-12-18 16:48 | XMS_ITS | Clinical Summary ---
Author Organization [facility] Address [address] [place] [address] Care Team Providers Care Account Manager Education Name Role Phone Michael Arias MD Primary Care Provider [phone] Allergies No known active allergies Medications HYDROcodone-acet [...] on file Legal Sex Female 7:48 PM HEALTH AND SOCIAL CARE TEACHER Gender Identity Not on file Sexual Orientation Not on file Last Filed Vital Signs Vital Sign Reading Time Taken Comments Blood Pressure 124/76 08/24/2024 11:55 AM HEALTH AND SOCIAL CARE TEACHER Pulse 76 08/24/2024 11:55 AM HEALTH AND SOCIAL CARE TEACHER Temperature 36.4 C (97.5 F) 08/24/2024 4:26 AM HEALTH AND SOCIAL CARE TEACHER Respiratory Rate 16 08/24/2024 11:55 AM HEALTH AND SOCIAL CARE TEACHER Oxygen Saturation 100% 08/24/2024 11:55 AM HEALTH AND SOCIAL CARE TEACHER Inhaled Oxygen Concentration - - Weight 59 kg (130 lb) 08/24/2024 4:26 AM HEALTH AND SOCIAL CARE TEACHER Height - - Body Mass Index - [...] patient's age to complete this topic Insurance [facility] CHO[facility] HMO/PPO Address: [facility] [id number] [place] [address] Care Teams Account Manager Education Relationship Specialty Start Date End Date Michael Arias MD [address] [place] [phone] PCP - General Family Medicine 08/24/24
--- OUTSIDE RECORDS SUMMARY | 2024-12-18 16:48 | XMS_ITS | Referral Summary ---
Author Organization [facility] Address [address] [place] [address] Care Team Providers Care Bottle Capper Name Role Phone Michael Arias MD Primary Care Provider [phone] Allergies No known active allergies Medications HYDROcodone-acet [...] on file Legal Sex Female 7:48 PM FILBERT GROWER Gender Identity Not on file Sexual Orientation Not on file Last Filed Vital Signs Vital Sign Reading Time Taken Comments Blood Pressure 124/76 08/24/2024 11:55 AM FILBERT GROWER Pulse 76 08/24/2024 11:55 AM FILBERT GROWER Temperature 36.4 C (97.5 F) 08/24/2024 4:26 AM FILBERT GROWER Respiratory Rate 16 08/24/2024 11:55 AM FILBERT GROWER Oxygen Saturation 100% 08/24/2024 11:55 AM FILBERT GROWER Inhaled Oxygen Concentration - - Weight 59 kg (130 lb) 08/24/2024 4:26 AM FILBERT GROWER Height - - Body Mass Index - - Plan of Treatment Not on file Insurance [facility] HMO/PPO Address: [place] [address] Care Teams Bottle Capper Relationship Specialty Start Date End Date Michael Arias MD [address] [place] [id number] PCP - General Family Medicine 08/24/24
--- OUTSIDE RECORDS SUMMARY | 2024-12-18 16:48 | XMS_ITS | Clinical Summary ---
Author Organization [facility] Address [address] [place] [address] Care Team Providers Care [place] Cradle And Dolly Name Role Phone Unavailable Primary Care Provider Unavailabl e Social History Tobacco Use Types Packs/Day Years Used Date Smoking Tobacco: Never Assessed Comments Unknown Sex and Gender Information Value Date Recorded Sex Assigned at Not on file Legal Sex Female 2:31 PM CDT Gender Identity Not on file Sexual Orientation Not on file Plan of Treatment Health Maintenance Due Date Last Done Comments DTAP/TDAP/TD VACCINES (1 - Tdap) 1991 HEPATITIS B VACCINES (1 of 3 - 19+ 3-dose series) 07/03 HPV/Cotest (21-29) 1993 CERVICAL CANCER SCREENING 2002 HPV/Cotest (30-65) 2002 PAP SMEAR 2002 BREAST CANCER SCREENING 2012 COLORECTAL SCREENING 2017 Colorectal Cancer Screening 2017 FIT-DNA Q 3 years 2017 FIT/FOBT Q 1 year 2017 Flex Sig/CT Colonography Q 5 years 2017 ZOSTER VACCINE (1 of 2) 2022 INFLUENZA VACCINE (#1) 2024 05/13/2018 Insurance [employer] BLUE ACCESS/TRUE BLUE PPO
--- OUTSIDE RECORDS SUMMARY | 2024-12-18 16:48 | XMS_ITS | Clinical Summary ---
Author Organization [facility] Address [facility] [place] [address] Care Team Providers Care Telegraph Office Manager Name Role Phone Michael Arias MD Primary Care Provider [phone] Allergies No known active allergies Medications ondansetron [...] FECAL NEGATIVE NEGATIVE 03/12/2024 1:22 AM CDT [facility] STOOL SPECIMEN / Unknown 03/12/2024 12:47 AM CDT Rahul Langston MD BODY FLUIDS AND STOOLS ORD ERABLES Final Result [facility] [address] [place] [address], from Last 3 Months or Most Recently Relevant to Health Maintenance Insurance MEDICAID MEDICAID Care Teams Telegraph Office Manager Relationship Specialty Start Date End Date Michael Arias MD [address] [place] [id number] PCP - General FAMILY PRACTICE 03/11/24
[2024-12-18 17:03] LABS: Hematocrit 27.8 % (37.0-47.0); Hemoglobin 7.5 g/dL (12.0-15.0); Mean Corpuscular Hemoglobin 19.1 pg (26-34); Mean Corpuscular Volume 70.9 fl (80-100); Mean Platelet Volume 8.7 fl (7.4-10.4); Platelet Count Result 358 k/mm3 (150-375); Red Blood Count 3.92 M/mm3 (4.2-5.4); Red Cell Distribution Width 19.9 % (11.5-14.5); White Blood Count 6.2 K/mm3 (4.5-10.0)
== END 2024-12-18 16:45 | disposition home or self-care (01) ==
PROVIDERS: PCP Family Medicine; Visit Provider Obstetrics & Gynecology Gynecology
DX: N92.0 Excessive and frequent menstruation with regular cycle (principal)
CPT/HCPCS: 36415; 85027

== ENCOUNTER 2024-12-20 18:02 | Emergency (ER) | payer OTHER, SELFPAY ==
[2024-12-20 18:06] VITALS: BP 111/49; PULSE 88; RESP 16; TEMP 36.8; O2SAT 100
--- OUTSIDE RECORDS SUMMARY | 2024-12-20 18:06 | XMS_ITS | Clinical Summary ---
Author Organization [facility] Address [address] [place] [address] Phone Care Team Providers Care Consumer Advocate Name Role Phone Provider, None Primary Care [...] Comments Blood Pressure 124/74 09/13/2020 5:21 PM BURLAPPER Pulse 88 09/13/2020 5:21 PM BURLAPPER Temperature 36.4 C (97.5 F) 09/13/2020 5:21 PM BURLAPPER Respiratory Rate 24 05/30/2018 9:37 AM CDT Oxygen Saturation 98% 09/13/2020 5:21 PM BURLAPPER Inhaled Oxygen Concentration - - Weight 83.6 [...] to complete this topic Insurance Care Teams Consumer Advocate Relationship Specialty Start Date End Date Provider, None [place] PCP - General 11/26/21
--- OUTSIDE RECORDS SUMMARY | 2024-12-20 18:06 | XMS_ITS | Clinical Summary ---
Author Organization [facility] Address [address] [facility] [place] [address] Care Team Providers Care Hvac Installation Technician Name Role Phone Michael Arias MD Primary Care Provider [phone] Allergies No known active allergies Medications HYDROcodone-acet [...] on file Legal Sex Female 7:48 PM MASTER COOK Gender Identity Not on file Sexual Orientation Not on file Last Filed Vital Signs Vital Sign Reading Time Taken Comments Blood Pressure 124/76 08/24/2024 11:55 AM MASTER COOK Pulse 76 08/24/2024 11:55 AM MASTER COOK Temperature 36.4 C (97.5 F) 08/24/2024 4:26 AM MASTER COOK Respiratory Rate 16 08/24/2024 11:55 AM MASTER COOK Oxygen Saturation 100% 08/24/2024 11:55 AM MASTER COOK Inhaled Oxygen Concentration - - Weight 59 kg (130 lb) 08/24/2024 4:26 AM MASTER COOK Height - - Body Mass Index - [...] patient's age to complete this topic Insurance [facility] [place] H[place]/PPO Address: [facility] [id number] [place] [address] Care Teams Hvac Installation Technician Relationship Specialty Start Date End Date Michael Arias MD [address] [place] [id number] PCP - General Family Medicine 08/24/24
--- OUTSIDE RECORDS SUMMARY | 2024-12-20 18:06 | XMS_ITS | Clinical Summary ---
Author Organization [facility] Address [address] [place] [address] Care Team Providers Care Bindery Production Manager Name Role Phone Unavailable Primary Care Provider [...]
--- OUTSIDE RECORDS SUMMARY | 2024-12-20 18:06 | XMS_ITS | Referral Summary ---
Author Organization [facility] Address [address] [facility] [place] [address] Care Team Providers Care Digital Media Designer Name Role Phone Michael Arias MD Primary Care Provider [phone] Allergies No known active allergies Medications HYDROcodone-acet [...] on file Legal Sex Female 7:48 PM CARPENTER PROTOTYPE Gender Identity Not on file Sexual Orientation Not on file Last Filed Vital Signs Vital Sign Reading Time Taken Comments Blood Pressure 124/76 08/24/2024 11:55 AM CARPENTER PROTOTYPE Pulse 76 08/24/2024 11:55 AM CARPENTER PROTOTYPE Temperature 36.4 C (97.5 F) 08/24/2024 4:26 AM CARPENTER PROTOTYPE Respiratory Rate 16 08/24/2024 11:55 AM CARPENTER PROTOTYPE Oxygen Saturation 100% 08/24/2024 11:55 AM CARPENTER PROTOTYPE Inhaled Oxygen Concentration - - Weight 59 kg (130 lb) 08/24/2024 4:26 AM CARPENTER PROTOTYPE Height - - Body Mass Index - - Plan of Treatment Not on file Insurance [facility] CHOICE PLUS Care Teams Digital Media Designer Relationship Specialty Start Date End Date Michael Arias MD [address] [place] [phone] PCP - General Family Medicine 08/24/24
[2024-12-20 21:46] LABS: Basophils Percent Auto 0.6 % (0.2-1.2); Eosinophils Absolute Auto 0.2 K/mm3 (0-0.3); Eosinophils Percent Auto 2.7 % (0-4.4); Hemoglobin 7.6 g/dL (12.0-15.0); Immature Granulocyte Absolute 0.02 K/mm3 (0.00-0.031); Immature Granulocyte Percent A 0.3 % (0-0.5); Lymphocytes Absolute Auto 2.03 K/mm3 (0.9-3.2); Lymphocytes Percent Auto 30.9 % (18.3-44.2); Mean Corpuscular HGB Conc 27.1 g/dl (32-36); Mean Corpuscular Hemoglobin 19.2 pg (26-34); Mean Corpuscular Volume 70.9 fl (80-100); Mean Platelet Volume 8.9 fl (7.4-10.4); Monocytes Absolute Auto 0.5 K/mm3 (0.1-0.6); Monocytes Percent Auto 7.5 % (2.6-8.5); Neutrophils Absolute Auto 3.8 K/mm3 (1.3-6.7); Platelet Count Result 376 k/mm3 (150-375); Red Blood Count 3.95 M/mm3 (4.2-5.4); Red Cell Distribution Width 19.9 % (11.5-14.5); White Blood Count 6.6 K/mm3 (4.5-10.0)
[2024-12-20 21:57] LABS: Alanine Aminotransferase 18 U/L (6-35); Albumin Level 3.8 g/dL (3.5-5.1); Alkaline Phosphatase 65 U/L (38-126); Anion Gap 6 mmol/L (4-12); Aspartate Amino Transferase 24 U/L (14-36); Bilirubin,Total 0.2 mg/dL (0.2-1.3); Blood Urea Nitrogen 17 mg/dL (7-17); Calcium 8.4 mg/dL (8.4-10.2); Carbon Dioxide 24 mmol/L (22-30); Chloride 107 mmol/L (98-107); Estimated CRCL calculation 67 ml/min; Estimated Glomerular Filt Rate > 60; Glucose 99 mg/dL (65-110); Potassium 3.8 mmol/L (3.4-5.0); Sodium 137 mmol/L (137-145)
[2024-12-20 22:10] LABS: Platelet Estimate Slightly Increased (Adequate)
[2024-12-20 22:11] LABS: Band Neutrophils Percent 0 % (0-6); Microcytosis 1+ (NORMAL); Schistocytes None Seen
[2024-12-20 22:12] LABS: Anisocytosis 2+
[2024-12-20 22:56] VITALS: RESP 12; O2SAT 99
[2024-12-20 23:04] VITALS: BP 123/62; PULSE 77; RESP 16; TEMP 36.6; O2SAT 100
--- NOTE | 2024-12-20 23:24 | ED.RECABL ---
HPI - Recheck/Abnormal Lab/Rx General Chief Complaint: Recheck/Abnormal Lab/Rx Stated Complaint: NEEDS BLOOD TRANSFUSION Time Seen by Provider: 12/20/24 23:09 Source: patient Mode of arrival: ambulatory Limitations: no limitations History of Present Illness HPI narrative: This is a 54-year-old female that presents to the emergency department for anemia. Reports her roller machine operator urged her to go to the ER for a blood transfusion. Her hemoglobin has been running low due to excessive uterine bleeding. She is has required blood transfusions in the past. She had a procedure last week, and is scheduled for another procedure in the beginning of December. She will have a uterine ablation at that time. Reports she has felt lightheaded, tired, short of breath. She is currently on her menstrual cycle. Related Data Home Medications ?Medication ?Instructions ?Recorded ?Confirmed ?Last Taken ?Type omeprazole 20 mg capsule,delayed 20 mg PO DAILY 07/10/24 12/11/24 12/10/24 History release tirzepatide (weight loss) 12.5 12.5 mg subcut WEEKLY 07/10/24 12/08/24 07/10/24 History mg/0.5 mL subcutaneous pen injector (Zepbound) cholecalciferol (vitamin D3) 125 5,000 unit PO DAILY 12/08/24 12/11/24 12/08/24 History mcg (5,000 unit) tablet (Vitamin D3) Allergies Allergy/AdvReac Type Severity Reaction Status Date / Time No Known Allergies Allergy Verified 12/20/24 18:03 Review of Systems Review of Systems: CONSTITUTIONAL: Denies fever, CARDIOVASCULAR: Denies chest pain, or edema. RESPIRATORY: Reports dyspnea. All systems reviewed & are unremarkable except as noted in HPI and below PMFSH Past Medical History Medical History (Updated 12/21/24 @ 01:38 by Mariana Blackman PA-C) PCOS (polycystic ovarian syndrome) (normal spontaneous vaginal delivery) x2 History of uterine fibroid Surgical History Surgical History (Updated 12/11/24 @ 07:25 by Imani Newton MD) Status post hysteroscopic myomectomy Status post tubal ligation Social History Social History Smoking packs per day: 0.5 Smoking cigarettes per day: 10.0 Years smoked: 15 Smoking pack-years: 7.50 Smoking status: Former smoker Tobacco type: cigarettes Smoking end date: 12/08/18 Alcohol intake: current Substance use: never Substance use type: does not use Living arrangements: with family Spiritual care concerns: No Exam Narrative: GENERAL: Pale, thin, and in no acute distress. HEAD: Normocephalic, atraumatic. EYES: EOMI. CHEST: Clear to auscultation. No respiratory distress. No wheezes rales or rhonchi HEART: Regular rate and rhythm. No murmur heard. Normal peripheral pulses. EXTREMITIES: Normal range of motion. No edema. SKIN: Warm, dry, no rash. NEURO: No focal deficits. Alert and oriented x3. PSYCH: Normal mood and affect Course Course Emergency Course: Patient's roller machine operator has requested blood transfusion due to symptomatic anemia with ongoing active bleeding. Will order 2 units packed RBCs and she is to follow up with her roller machine operator for further management Vital Signs Vital signs: Vital Signs Temperature 98.3 F 12/20/24 18:06 Pulse Rate 88 12/20/24 18:06 Respiratory Rate 16 12/20/24 18:06 Blood Pressure 111/49 L 12/20/24 18:06 Pulse Oximetry 100 12/20/24 18:06 Oxygen Delivery Room Air 12/20/24 18:06 Temperature 97.6 F 12/21/24 01:13 Pulse Rate 74 12/21/24 01:13 Respiratory Rate 17 12/21/24 01:13 Blood Pressure 123/73 12/21/24 01:13 Pulse Oximetry 99 12/21/24 01:13 Oxygen Delivery Room Air 12/20/24 18:06 MDM - Recheck/Abnormal Lab/Rx MDM Narrative Medical decision making narrative: Patient presents to the ER for anemia. Blood transfusion requested by her roller machine operator. Hemoglobin is 7.6, patient is actively bleeding, she is very symptomatic, will transfuse 2 units packed RBCs. She is to follow up with her roller machine operator for further management Lab Data Attestation: I reviewed the patient's lab results. 12/20/24 21:40 12/20/24 21:40 Labs: Lab Results 12/20/24 12/20/24 Range/Units 21:40 23:33 WBC 6.6 (4.5-10.0) K/mm3 RBC 3.95 L (4.2-5.4) M/mm3 Hgb 7.6 L (12.0-15.0) g/dL Hct 28.0 L (37.0-47.0) % MCV 70.9 L (80-100) fl MCH 19.2 L (26-34) pg MCHC 27.1 L (32-36) g/dl RDW 19.9 H (11.5-14.5) % Plt Count 376 H (150-375) k/mm3 MPV 8.9 (7.4-10.4) fl Immature Gran % (Auto) 0.3 (0-0.5) % Neut % (Auto) 58.0 (45.5-73.1) % Lymph % (Auto) 30.9 (18.3-44.2) % [place] % (Auto) 7.5 (2.6-8.5) % Eos % (Auto) 2.7 (0-4.4) % Baso % (Auto) 0.6 (0.2-1.2) % Lymph # (Auto) 2.03 (0.9-3.2) K/mm3 [place] # (Auto) 0.5 (0.1-0.6) K/mm3 Eos # (Auto) 0.2 (0-0.3) K/mm3 Baso # (Auto) 0.0 (0.0-0.1) K/mm3 Abs Immat Gran (auto) 0.02 (0.00-0.031) K/mm3 Absolute Neuts (auto) 3.8 (1.3-6.7) K/mm3 Absolute Nucleated RBC 0.000 (0.0-0.012) K/mm3 Band Neutrophils % 0 (0-6) % Nucleated RBC % 0.0 (0.0-0.2) % Platelet Estimate Slightly increased (Adequate) Anisocytosis 2+ Microcytosis 1+ (NORMAL) Schistocytes None seen Sodium 137 (137-145) mmol/L Potassium 3.8 (3.4-5.0) mmol/L Chloride 107 (98-107) mmol/L Carbon Dioxide 24 (22-30) mmol/L Anion Gap 6 (4-12) mmol/L BUN 17 (7-17) mg/dL Creatinine 0.67 L (0.7-1.0) mg/dL Estim Creat Clear Calc 67 ml/min Estimated GFR > 60 (59 - ) Glucose 99 (65-110) mg/dL Calcium 8.4 (8.4-10.2) mg/dL Total Bilirubin 0.2 (0.2-1.3) mg/dL AST 24 (14-36) U/L ALT 18 (6-35) U/L Alkaline Phosphatase 65 (38-126) U/L Total Protein 6.0 L (6.3-8.2) g/dL Albumin 3.8 (3.5-5.1) g/dL Blood Type O Positive Antibody Screen Negative Crossmatch See Detail Critical Care Time Critical Care Time Critical Care Time: Yes Total Critical Care Time: 35 Discharge Plan Discharge Clinical Impression: Anemia Qualifiers: Anemia type: unspecified type Qualified Code(s): D64.9 - Anemia, unspecified Patient Disposition: Home Condition: Stable Instructions: Anemia (ED) Additional Instructions: Return to the emergency department if you experience fever, chest pain, shortness of breath, weakness, numbness, you pass out, or any other symptoms that are concerning to you. Follow up with your roller machine operator Patient Language: Arabic Prescriptions: No Action omeprazole 20 mg capsule,delayed release(DR/EC) 20 mg PO DAILY Zepbound 12.5 mg/0.5 mL pen injector 12.5 mg SUBCUT WEEKLY Patient Comments: Fridays ferrous sulfate [Iron (ferrous sulfate)] 325 mg (65 mg iron) tablet 325 mg PO DAILY Qty: 30 0RF cholecalciferol (vitamin D3) [Vitamin D3] 125 mcg (5,000 unit) tablet 5,000 unit PO DAILY Follow-up/Referrals: Juana,MD Michael [Primary Care Provider] -
--- OUTSIDE RECORDS SUMMARY | 2024-12-20 23:46 | XMS_ITS | Clinical Summary ---
Author Organization [facility] Address [address] [facility] [address] Care Team Providers Care Operations Recruiter Name Role Phone Michael Arias MD Primary Care Provider [phone] Allergies No known active allergies Medications HYDROcodone-acet [...] on file Legal Sex Female 7:48 PM TRIM OPERATOR Gender Identity Not on file Sexual Orientation Not on file Last Filed Vital Signs Vital Sign Reading Time Taken Comments Blood Pressure 124/76 08/24/2024 11:55 AM TRIM OPERATOR Pulse 76 08/24/2024 11:55 AM TRIM OPERATOR Temperature 36.4 C (97.5 F) 08/24/2024 4:26 AM TRIM OPERATOR Respiratory Rate 16 08/24/2024 11:55 AM TRIM OPERATOR Oxygen Saturation 100% 08/24/2024 11:55 AM TRIM OPERATOR Inhaled Oxygen Concentration - - Weight 59 kg (130 lb) 08/24/2024 4:26 AM TRIM OPERATOR Height - - Body Mass Index - [...] patient's age to complete this topic Insurance [facility] CHOICE PLUS [facility] HMO/PPO Address: [facility] [id number] [place] [address] Care Teams Operations Recruiter Relationship Specialty Start Date End Date Michael Arias MD [address] [place] [id number] PCP - General Family Medicine 08/24/24
--- OUTSIDE RECORDS SUMMARY | 2024-12-20 23:46 | XMS_ITS | Clinical Summary ---
Author Organization [facility] Address [address] [place] [address] Care Team Providers Care Senior Oracle Soa Developer Name Role Phone Unavailable Primary Care Provider [...]
--- OUTSIDE RECORDS SUMMARY | 2024-12-20 23:46 | XMS_ITS | Referral Summary ---
Author Organization [facility] Address [address] [facility] [place] [address] Care Team Providers Care Keg Inspector Name Role Phone Michael Arias MD Primary Care Provider [phone] Allergies No known active allergies Medications HYDROcodone-acet [...] on file Legal Sex Female 7:48 PM WINDOW COVERING SALES CONSULTANT Gender Identity Not on file Sexual Orientation Not on file Last Filed Vital Signs Vital Sign Reading Time Taken Comments Blood Pressure 124/76 08/24/2024 11:55 AM WINDOW COVERING SALES CONSULTANT Pulse 76 08/24/2024 11:55 AM WINDOW COVERING SALES CONSULTANT Temperature 36.4 C (97.5 F) 08/24/2024 4:26 AM WINDOW COVERING SALES CONSULTANT Respiratory Rate 16 08/24/2024 11:55 AM WINDOW COVERING SALES CONSULTANT Oxygen Saturation 100% 08/24/2024 11:55 AM WINDOW COVERING SALES CONSULTANT Inhaled Oxygen Concentration - - Weight 59 kg (130 lb) 08/24/2024 4:26 AM WINDOW COVERING SALES CONSULTANT Height - - Body Mass Index - - Plan of Treatment Not on file Insurance [facility] CHOICE PLUS Care Teams Keg Inspector Relationship Specialty Start Date End Date Michael Arias MD [address] [place] [id number] PCP - General Family Medicine 08/24/24
--- OUTSIDE RECORDS SUMMARY | 2024-12-20 23:46 | XMS_ITS | Clinical Summary ---
Author Organization [facility] Address [address] [place] [address] Phone Care Team Providers Care Departure Clerk Name Role Phone Provider, None Primary Care [...] Comments Blood Pressure 124/74 09/13/2020 5:21 PM LAUNDRY OPERATOR WASH ROOM Pulse 88 09/13/2020 5:21 PM LAUNDRY OPERATOR WASH ROOM Temperature 36.4 C (97.5 F) 09/13/2020 5:21 PM LAUNDRY OPERATOR WASH ROOM Respiratory Rate 24 05/30/2018 9:37 AM CDT Oxygen Saturation 98% 09/13/2020 5:21 PM LAUNDRY OPERATOR WASH ROOM Inhaled Oxygen Concentration - - Weight 83.6 [...] to complete this topic Insurance Care Teams Departure Clerk Relationship Specialty Start Date End Date Provider, None [place] PCP - General 11/26/21
[2024-12-21] VITALS (13 sets, daily range): BP systolic 105–138; BP diastolic 50–78; PULSE 61–74; RESP 14–19; TEMP 36.4–36.6; O2SAT 96–100
[2024-12-21] MEDS: SODIUM CHLORIDE 0.9% IV 250 ML 30 ML IV CONT (00:59)
[2024-12-21] MEDS: TUBING, BLOOD SET 1 EACH XX ×2 (01:00→04:07)
[2024-12-21] MEDS: SODIUM CHLORIDE 0.9% IV 250 ML 100 ML (04:07)
== END 2024-12-21 07:15 | disposition home or self-care (01) ==
PROVIDERS: Emergency Medicine; Emergency Provider Physician Assistant; PCP Family Medicine
DX: D64.9 Anemia, unspecified (principal); E28.2 Polycystic ovarian syndrome; Z87.891 Personal history of nicotine dependence; Z79.85 Long-term (current) use of injectable non-insulin antidiabetic drugs
CPT/HCPCS: 36415; 36430; 80053; 85025; 86850; 86900; 86901; 86923; 96360; 96361; 99285; J7050; P9016

== ENCOUNTER 2025-01-01 00:55 | Day surgery (SDC) | payer OTHER, SELFPAY ==
[2024-12-21 09:13] VITALS: BMI 22.9
--- NOTE | 2024-12-21 09:22 | PC.NURSE ---
Report to the Outpatient Waiting Room, entrance under the green pavilion located off [facility], at time __0915_ on date _01/01/25_. Planned Procedure Time: _1115_.? Time changes happen often and if your time is changed the preop area will call you the afternoon before. - You and your visitor will be asked to self-screen and do not enter if you have any COVID symptoms. Please call surgeon if you need to reschedule. - A mask is optional within the hospital at this time. Patients may have clear liquids (water, carbonated beverages, clear teas, apple juice) until 3 hours prior to surgery with a maximum of 20 ounces. - No food from midnight until time of surgery and no smoking, or chewing tobacco (or any form of nicotine). No chewing gum, candy or mints. - Infants may have breast milk until 4 hours before surgery, infant formula 6 hours prior to surgery. - Children will be allowed to drink immediately following surgery.? If applicable, please bring a bottle or sippy cup to assist with drinking. Juice, water, soda, and popsicles are readily available.? For infants on formula, please bring formula the day of surgery.? Pacifiers are allowed. Take only the following medications with a SIP of water on the morning of surgery: NONE DO NOT STOP ANY OF YOUR OTHER PRESCRIPTION MEDICATIONS PRIOR TO SURGERY EXCEPT THE FOLLOWING Hold all vitamins and supplements for 3 days per anesthesiologist. Medications to discontinue per physician ___ZEPBOUND Date to take last dose 12/15/24 Please no make-up, nail colombian, hairspray, perfume, deodorant, or body powder the day of surgery.? No jewelry (including any body piercings) or valuables the day of surgery, leave them at home.? Please take a shower or bath the night before, or the morning of, surgery with an antibacterial soap.? Wear comfortable, loose fitting clothing.? Children are encouraged to wear pajamas. - Jewelry must be removed prior to entering the operating room.? Rings and piercings that are not removed may be cut off. - The hospital will not accept responsibility for valuables.? - Please leave all valuables, including medications, at home the day of surgery. If you are going home after surgery, a licensed route sales delivery drivers supervisor must drive you home.? - NO public transportation without another adult if you receive anesthesia. - We recommend that an adult stay with you for 24 hours following discharge. - We also recommend that you do not drive, make important decision, drink alcoholic beverages, or take any drugs that were not prescribed by your health care provider for at least 24 hours after your discharge time. For Pediatric surgeries, we recommend two adults accompany the child home. Follow any additional instructions given to you from your surgeon. Telephone instructions given to __PATIENT__and asked if any additional questions and then verbalized understanding. Patient advised to call surgeon office or pre surgery nurse liaison [phone] if any additional questions.
--- OUTSIDE RECORDS SUMMARY | 2025-01-01 00:59 | XMS_ITS | Referral Summary ---
Author Organization [facility] Address [address] [place] [address] Care Team Providers Care Pet Resort Concierge Name Role Phone Michael Arias MD Primary Care Provider [phone] Allergies No known active allergies Medications HYDROcodone-acet [...] on file Legal Sex Female 7:48 PM INDUSTRIAL SPRAYPAINTER Gender Identity Not on file Sexual Orientation Not on file Last Filed Vital Signs Vital Sign Reading Time Taken Comments Blood Pressure 124/76 08/24/2024 11:55 AM INDUSTRIAL SPRAYPAINTER Pulse 76 08/24/2024 11:55 AM INDUSTRIAL SPRAYPAINTER Temperature 36.4 C (97.5 F) 08/24/2024 4:26 AM INDUSTRIAL SPRAYPAINTER Respiratory Rate 16 08/24/2024 11:55 AM INDUSTRIAL SPRAYPAINTER Oxygen Saturation 100% 08/24/2024 11:55 AM INDUSTRIAL SPRAYPAINTER Inhaled Oxygen Concentration - - Weight 59 kg (130 lb) 08/24/2024 4:26 AM INDUSTRIAL SPRAYPAINTER Height - - Body Mass Index - - Plan of Treatment Not on file Insurance [facility] CHOICE PLUS Care Teams Pet Resort Concierge Relationship Specialty Start Date End Date Michael Arias MD [address] [place] [id number] PCP - General Family Medicine 08/24/24
--- OUTSIDE RECORDS SUMMARY | 2025-01-01 00:59 | XMS_ITS | Clinical Summary ---
Author Organization [facility] Address [address] [facility] [place] [address] Care Team Providers Care Belt Builder Helper Name Role Phone Michael Arias MD Primary Care Provider [phone] Allergies No known active allergies Medications HYDROcodone-acet [...] on file Legal Sex Female 7:48 PM PULVERIZING AND SIFTING OPERATOR Gender Identity Not on file Sexual Orientation Not on file Last Filed Vital Signs Vital Sign Reading Time Taken Comments Blood Pressure 124/76 08/24/2024 11:55 AM PULVERIZING AND SIFTING OPERATOR Pulse 76 08/24/2024 11:55 AM PULVERIZING AND SIFTING OPERATOR Temperature 36.4 C (97.5 F) 08/24/2024 4:26 AM PULVERIZING AND SIFTING OPERATOR Respiratory Rate 16 08/24/2024 11:55 AM PULVERIZING AND SIFTING OPERATOR Oxygen Saturation 100% 08/24/2024 11:55 AM PULVERIZING AND SIFTING OPERATOR Inhaled Oxygen Concentration - - Weight 59 kg (130 lb) 08/24/2024 4:26 AM PULVERIZING AND SIFTING OPERATOR Height - - Body Mass Index - - Plan of Treatment Health Maintenance Due Date Last Done Comments Breast Cancer Screening-Mammogram 1972 Cervical Cancer Screening 1972 Colon Cancer Screening-Colonoscopy 1972 Depression Screening 1972 Hepatitis C Screening 1972 DTaP/Tdap/Td Vaccine (1 - Tdap) 1983 Hepatitis B Screening 1990 Regular Well Visit/Exam 18-64 1990 Zoster Vaccine (1 of 2) 2022 Influenza Vaccine (Season Ended) 2025 05/13/20 18 Pneumococcal vaccine <65 Aged Out 05/30/2018 No longer eligible based on patient's age to complete this topic Insurance [facility] CHOICE PLUS [facility] HMO/PPO Address: [facility] [address] [place] [address] Care Teams Belt Builder Helper Relationship Specialty Start Date End Date Michael Arias MD [address] [place] [id number] PCP - General Family Medicine 08/24/24
--- OUTSIDE RECORDS SUMMARY | 2025-01-01 00:59 | XMS_ITS | Clinical Summary ---
Author Organization [facility] Medical [facility] Address [address] [place] [address] Care Team Providers Care Coding Consultant Name Role Phone Unavailable Primary Care Provider [...]
--- OUTSIDE RECORDS SUMMARY | 2025-01-01 00:59 | XMS_ITS | Clinical Summary ---
Author Organization [facility] Address [address] [place] [address] Phone Care Team Providers Care Diversional Therapist Name Role Phone Provider, None Primary Care [...] Comments Blood Pressure 124/74 09/13/2020 5:21 PM ERP IMPLEMENTATION CONSULTANT Pulse 88 09/13/2020 5:21 PM ERP IMPLEMENTATION CONSULTANT Temperature 36.4 C (97.5 F) 09/13/2020 5:21 PM ERP IMPLEMENTATION CONSULTANT Respiratory Rate 24 05/30/2018 9:37 AM CDT Oxygen Saturation 98% 09/13/2020 5:21 PM ERP IMPLEMENTATION CONSULTANT Inhaled Oxygen Concentration - - Weight 83.6 kg (184 lb 3.2 oz) 05/30/2018 9:37 A M CDT Height 160 cm (5' 3) 05/30/2018 9:37 AM CDT Body Mass Index [...] to complete this topic Insurance Care Teams Diversional Therapist Relationship Specialty Start Date End Date Provider, None [place] PCP - General 11/26/21
--- NOTE | 2025-01-01 07:44 | WPDHPUPDATE1 ---
History and Physical Update Update Date/Time: 01/01/25 07:44 History and Physical has been reviewed, including an updated exam of the patient. There are NO changes in the patient's condition. Risks, benefits, and alternatives have been discussed and questions answered. Patient agrees to proceed with procedure.
--- NOTE | 2025-01-01 07:44 | PM.HPGS ---
History of Present Illness History of Present Illness Consent: Risks, benefits, and alternatives have been discussed and questions answered. Patient agrees to proceed with procedure. Chief complaint: menorrhagia with anemia Narrative: Khalif Stacy is a 54 year old female with menorrhagia requiring transfusion. Patient underwent D&C hysteroscopy in July of 2024 with myomectomy. Cycles did not improved. Patient presented again in November for an ablation however when the hysteroscopy was performed there was another large fibroid. This was removed at the time and the Zuleyma device would not pass the safety test to proceed with the ablation. The patient presents today for Zuleyma endometrial ablation. Risks of infection, bleeding, perforation, and device failure are discussed with the patient success of the procedure afterwards is also reviewed. Patient voices understanding and agrees to proceed. Review of Systems Review of Systems: not repeated day of surgery; patient states no changes in status PMFSH Past Medical History Medical History (Updated 12/22/24 @ 00:00 by Kalyani Herron) PCOS (polycystic ovarian syndrome) (normal spontaneous vaginal delivery) x2 History of uterine fibroid Surgical History Surgical History (Updated 01/01/25 @ 07:48 by Imani Newton MD) Status post hysteroscopic myomectomy X2 Status post tubal ligation Social History Social History Smoking packs per day: 0.5 Smoking cigarettes per day: 10.0 Years smoked: 15 Smoking pack-years: 7.50 Smoking status: Former smoker Tobacco type: cigarettes Smoking end date: 12/08/18 Alcohol intake: current Substance use: never Substance use type: does not use Living arrangements: with family Spiritual care concerns: No Meds Home Medications and Allergies Home Medications ?Medication ?Instructions ?Recorded ?Confirmed ?Type omeprazole 20 mg capsule,delayed 20 mg PO DAILY 07/10/24 12/21/24 History release tirzepatide (weight loss) 12.5 12.5 mg subcut WEEKLY 07/10/24 12/21/24 History mg/0.5 mL subcutaneous pen injector (Zepbound) ferrous sulfate 325 mg (65 mg 325 mg PO DAILY #30 tabs 07/12/24 12/21/24 Rx iron) tablet (Iron (ferrous sulfate)) cholecalciferol (vitamin D3) 125 5,000 unit PO DAILY 12/08/24 12/21/24 History mcg (5,000 unit) tablet (Vitamin D3) Allergies Allergy/AdvReac Type Severity Reaction Status Date / Time No Known Allergies Allergy Verified 12/21/24 09:11 Exam Const: General: healthy appearing and alert Orientation/consciousness: patient oriented x3 Resp: Effort & Inspection: normal respiratory effort : External Female Exam: normal external appearance Speculum Exam - Vagina: normal appearance of the vagina and normal vaginal discharge Speculum Exam - Cervix: normal appearance of the cervix Bimanual exam- vagina & uterus: uterine size normal and consistency normal Bimanual Exam- Adnexa, other: normal adnexae and No adnexal tenderness Neuro: General: patient oriented x3 Assessment and Plan Assessment and plan (1) Menorrhagia: Code(s): N92.0 - Excessive and frequent menstruation with regular cycle Status: Acute Assessment and Plan: Plan to proceed with Zuleyma endometrial ablation (2) History of uterine fibroid: Code(s): Z86.018 - Personal history of other benign neoplasm Status: Acute (3) Anemia: Qualifiers: Anemia type: unspecified type Qualified Code(s): D64.9 - Anemia, unspecified Code(s): D64.9 - Anemia, unspecified Status: Acute
[2025-01-01 09:00] VITALS: BP 138/62; PULSE 67; RESP 16; TEMP 36.6; O2SAT 100
[2025-01-01 09:08] LABS: BEDSIDEPREGUCG Negative (Negative)
[2025-01-01] MEDS: LACTATED RINGERS 1,000 ML 30 ML IV CONT (09:20)
[2025-01-01] MEDS: ACETAMINOPHEN 500 MG TABLET 1000 MG PO (09:25)
[2025-01-01 09:28] LABS: Hematocrit 37.5 % (37.0-47.0)
--- NOTE | 2025-01-01 09:39 | WPDANESEPPF ---
Anes - Initial Pre Proc Eval Procedure: Operation Date: 01/01/25 11:15 Proposed Procedures p Hysteroscopy with Zuleyma Endometrial Ablation - Imani Newton MD Date/Time: 01/01/25 09:39 Surgeon: Imani Newton MD Pre Op Diagnosis: menorrhagia with anemia Patient Data Age: 54 Gender: F Height: 1.57 m Weight: 60.2 kg Last Vital Signs Temp 36.6 C 01/01/25 09:00 Pulse 67 01/01/25 09:00 Resp 16 01/01/25 09:00 BP 138/62 01/01/25 09:00 Pulse Ox 100 01/01/25 09:00 O2 Del Method Room Air 01/01/25 09:00 Allergies Allergy/AdvReac Type Severity Reaction Status Date / Time No Known Allergies Allergy Verified 01/01/25 09:04 Home Medications ?Medication ?Instructions ?Recorded ?Confirmed ?Type omeprazole 20 mg capsule,delayed 20 mg PO DAILY 07/10/24 12/21/24 History release tirzepatide (weight loss) 12.5 12.5 mg subcut WEEKLY 07/10/24 12/21/24 History mg/0.5 mL subcutaneous pen injector (Zepbound) ferrous sulfate 325 mg (65 mg 325 mg PO DAILY #30 tabs 07/12/24 12/21/24 Rx iron) tablet (Iron (ferrous sulfate)) cholecalciferol (vitamin D3) 125 5,000 unit PO DAILY 12/08/24 12/21/24 History mcg (5,000 unit) tablet (Vitamin D3) Laboratory Tests 01/01/25 01/01/25 09:06 09:23 Hgb Pending Hct Pending POC Urine HCG, Qual Negative (Negative) Patient hx anesthesia problems: none Family hx anesthesia problems: none Results Review: All pre-operative results and documents have been reviewed as part of the pre-operative evaluation. [facility] Past Medical History Medical History PCOS (polycystic ovarian syndrome) (normal spontaneous vaginal delivery) x2 History of uterine fibroid Surgical History Surgical History Status post hysteroscopic myomectomy X2 Status post tubal ligation Social History Social History Smoking packs per day: 0.5 Smoking cigarettes per day: 10.0 Years smoked: 15 Smoking pack-years: 7.50 Smoking status: Former smoker Tobacco type: cigarettes Smoking end date: 12/08/18 Alcohol intake: current Substance use: never Substance use type: does not use Living arrangements: with family Spiritual care concerns: No Anes - Eval Final PreProcedure Day of Procedure 01/01/25 09:39 Patient weight: normal Heart: regular rate and rhythm Lungs: clear to auscultation Airway: Mallampati scale class II Neurological: alert and oriented Last oral intake: >/= 8 hours ASA classification: II Emergent: no Anesthetic plan: proceed Anesthesia type and monitoring: general GIVS and standard monitoring Results Review: All pre-operative results and documents have been reviewed as part of the pre-operative evaluation. Informed Consent: The patient's anesthetic plan and its attendant risks and benefits were discussed with the patient/family/POA. Questions were solicited and answers provided to the satisfaction of the patient/family/POA.
[2025-01-01] MEDS: LIDOCAINE 1% LOCAL INJ 10 ML VIAL INFILTRATE (10:55)
--- NOTE | 2025-01-01 11:21 | S_PTH ---
PATIENT: Khalif Stacy LOC: [facility] U#:[id number] AGE/SX: 54/F ROOM: RE01/01/[address]: Imani Newton MD : 1970 BED: DIS: 01/01/2025 SPEC #: [id number] RECD: 01/01/25 13:13 STATUS: MANUEL RE #: [id number] [place]: 01/01/25 11:[address]: Imani Newton DEPT: [facility] Surgical RECD BY: Melina Vasquez ENTERED: 01/01/25 13:13 SP TYPE: Surgical OTHR DR: Michael AriasMD Tissues: A - Endometrial Curettings Procedures: Hematoxylin and Eosin Stain Gross and Microscopic Level 4
--- NOTE | 2025-01-01 11:42 | W.PM.PROC2 ---
Procedure Note - Detailed Date of Procedure 01/01/25 Pre-op Diagnosis menorrhagia with anemia Fibroids Post-op Diagnosis Same Procedure Performed Hysteroscopic myomectomy Zuleyma endometrial ablation Surgeon Imani Newton MD Anesthesia MAC Findings The uterus sounded to 10cm. The previous fibroid that had been removed in November is filling half of the cavity. The remainder of the endometrium appears grossly normal Description of Procedure The patient was taken to the operating room and placed under anesthesia in the dorsal lithotomy position. She was prepped and draped in the usual sterile fashion. [place] speculum was placed in the vagina and the cervix was grasped on the anterior lip with a tenaculum. The uterus is sounded to 4cm and internal cervical stenosis is encountered. Hydrodissection was used and the endometrium was entered. With the above-stated findings noted decision was made to switch to the large hysteroscope and use the Wave Aveta resection device. The cervix was serially dilated to a 6 Hegar. The large hysteroscope was placed and under direct visualization the entire fibroid was removed and flattened to the endometrium using the resection device. Observation revealed no further fibroid pushing into the cavity. The hysteroscope was removed and the Zuleyma device opened and placed set at 6. The CO2 indicator would not read grain a remained to the far right in the red indicator. The device was removed and reset for 5.5cm and when attempting to replace into the cavity it would not close. Second device was opened and placed with set at 5.5cm. The CO2 indicator moved into the green. The cavity assessment passed on on 1st attempt for both indicators. The ablation then occurred for the full 2minutes. The hysteroscope is replaced and good ablation effect was noted. All instruments are removed. Sponge, needle, and instrument counts are correct per the OR staff. The patient was awakened from anesthesia and taken to recovery in stable condition. Estimated Blood Loss 5 Drains No Packing No Pathology Yes (Endometrial shavings) Complications No immediate complications Condition Stable Disposition PACU
[2025-01-01 11:43] VITALS: BP 115/63; PULSE 64; RESP 14; O2SAT 100
[2025-01-01 12:05] VITALS: BP 123/63; PULSE 52; RESP 14; O2SAT 100
[2025-01-01 12:30] VITALS: BP 119/87; PULSE 55; RESP 14
== END 2025-01-01 12:39 | disposition home or self-care (01) ==
PROVIDERS: Anesthesiology; PCP Family Medicine; Visit Provider Obstetrics & Gynecology Gynecology
PROC: 0U5B8ZZ Destruction of Endometrium, Via Natural or Artificial Opening Endoscopic (ICD-10-PCS; CPT 58563; principal; 2025-01-01 11:15)
DX: N88.2 Stricture and stenosis of cervix uteri (principal); D25.9 Leiomyoma of uterus, unspecified; E28.2 Polycystic ovarian syndrome; D64.9 Anemia, unspecified; Z79.85 Long-term (current) use of injectable non-insulin antidiabetic drugs; Z98.890 Other specified postprocedural states; Z98.51 Tubal ligation status; Z87.891 Personal history of nicotine dependence; Z86.018 Personal history of other benign neoplasm
CPT/HCPCS: 58561; 58563; 36415; 85014; 85018; 88305; A9270; J2003; J2250; J2704; J3010; J7120